=== PATIENT | male | born 1955 | race Caucasian/White ===

== ENCOUNTER 2017-09-24 10:06 | Emergency (ER) | payer MEDICARE ==
--- NOTE | 2017-09-24 11:48 | ED ---
General Adult HPI - General Chief complaint: Urogenital Stated complaint: Urinary problems Time Seen by Provider: 09/24/17 10:25 Source: patient, RN notes reviewed Mode of arrival: ambulatory Limitations: no limitations - History of Present Illness Initial comments: This is a 62-year-old male who presents emergency Department with a past medical history significant for benign prostatic hypertrophy. Patient states he recently had a catheter placed which is taken out yesterday. Patient states he was unable to urinate today so came back to the emergency department. Patient states he started on 2 medications so that he would not have urinary retention. Patient states once he just started taking yesterday. Patient states that a follow-up neurology appointment. Patient complains of suprapubic abdominal pain. Patient denies any fever or dysuria. - Related Data Home Medications Medication Instructions Recorded Confirmed Aspirin 81 mg PO DAILY 11/21/14 11/21/14 Atorvastatin [Lipitor] 20 mg PO DAILY 11/21/14 11/21/14 Clopidogrel [Plavix] 75 mg PO DAILY 11/21/14 11/21/14 Desoximetasone [Topicort] 15 gm TP 11/21/14 11/21/14 Lisinopril [Zestril] 2.5 mg PO DAILY 11/21/14 11/21/14 Metoprolol Tartrate [Lopressor] 50 mg PO BID 11/21/14 11/21/14 Sertraline [Zoloft] 50 mg PO DAILY 11/21/14 11/21/14 buPROPion HCL [Wellbutrin XL] 300 mg PO DAILY 11/21/14 11/21/14 Previous Rx's Medication Instructions Recorded Cephalexin [Keflex] 500 mg PO Q6HR #40 cap 11/21/14 Ciprofloxacin HCl [Cipro] 500 mg PO Q12HR #20 tablet 09/24/17 Allergies Allergy/AdvReac Type Severity Reaction Status Date / Time No Known Allergies Allergy Verified 09/24/17 10:30 Review of Systems ROS Statement: Those systems with pertinent positive or pertinent negative responses have been documented in the HPI. ROS Other: All systems not noted in ROS Statement are negative. Past Medical History Past Medical History: Coronary Artery Disease (CAD), Hyperlipidemia, Hypertension, Prostate Disorder History of Any Multi-Drug Resistant Organisms: None Reported Past Surgical History: Coronary Bypass/CABG Past Psychological History: No Psychological Hx Reported Smoking Status: Current some day smoker Past Alcohol Use History: None Reported Past Drug Use History: None Reported General Exam - General Exam Comments Initial Comments: GENERAL: Patient is well-developed and well-nourished. Patient is nontoxic and well- hydrated and is in moderate distress. ENT: Neck is soft and supple. No significant lymphadenopathy is noted. EYES: The sclera were anicteric and conjunctiva were pink and moist. Extraocular movements were intact and pupils were equal round and reactive to light. Eyelids were unremarkable. PULMONARY: Unlabored respirations. Good breath sounds bilaterally. No audible rales rhonchi or wheezing was noted. CARDIOVASCULAR: There is a regular rate and rhythm without any murmurs gallops or rubs. ABDOMEN: Patient suprapubic tenderness and distention SKIN: Skin is clear with no lesions or rashes and otherwise unremarkable. NEUROLOGIC: Patient is alert and oriented x3. Cranial nerves II through XII are grossly intact. Motor and sensory are also intact. Normal speech, volume and content. Symmetrical smile. MUSCULOSKELETAL: Normal extremities with adequate strength and full range of motion. N LYMPHATICS: No significant lymphadenopathy is noted PSYCHIATRIC: Normal psychiatric evaluation. Limitations: no limitations Course Vital Signs 09/24/17 10:27 Temperature 97 F L Pulse Rate 111 H Respiratory 18 Rate Blood Pressure 178/109 O2 Sat by Pulse 98 Oximetry Medical Decision Making - Lab Data Lab Results 09/24/17 Range/Units 11:30 Urine Color Yellow Urine Appearance Cloudy (Clear) Urine pH 7.5 (5.0-8.0) Ur Specific [place] 1.017 (1.001-1.035) Urine Protein Trace H (Negative) Urine Glucose (UA) Negative (Negative) Urine Ketones Negative (Negative) Urine Blood Large H (Negative) Urine Nitrite Positive (Negative) Urine Bilirubin Negative (Negative) Urine Urobilinogen <2.0 (<2.0) mg/dL Ur Leukocyte Esterase Moderate H (Negative) Urine RBC >182 H (0-5) /hpf Urine WBC 81 H (0-5) /hpf Urine Bacteria Occasional H (None) /hpf Urine Mucus Rare H (None) /hpf Disposition Clinical Impression: Urinary tract infection, Urinary retention Disposition: HOME SELF-CARE Condition: Good Instructions: Urinary Tract Infection in Men (ED), Urinary Retention in Men (ED ) Additional Instructions: Patient should follow-up with urology as soon as possible Prescriptions: Ciprofloxacin HCl [Cipro] 500 mg PO Q12HR #20 tablet Referrals: Josselin Alfaro DO [Primary Care Provider] - 1-2 days Time of Disposition: 12:12
[2017-09-24 11:58] LABS: Appearance,Urine Cloudy (Clear); Bacteria,Urine Occasional /hpf; Bilirubin,Urine Negative (Negative); Blood,Urine Large (Negative); Color,Urine Yellow; Glucose,Urine (UA) Negative (Negative); Ketones,Urine Negative (Negative); Leukocyte Esterase,Urine Moderate (Negative); Mucus,Urine Rare /hpf; Nitrite,Urine Positive (Negative); PH, Urine 7.5 (5.0-8.0); Protein,Urine Trace (Negative); RBC,Urine >182 /hpf (0-5); Specific Gravity,Urine 1.017 (1.001-1.035); Urobilinogen,Urine <2.0 mg/dL (<2.0); WBC,Urine 81 /hpf (0-5)
[2017-09-24] MEDS ORDERED: cefTRIAXone 1,000 MG VIAL (IM USE) IM STA (12:11)
[2017-09-24 12:28] VITALS: BP 143/82; PULSE 85; RESP 15; TEMP 97.1
== END 2017-09-24 12:29 | disposition home or self-care (01) ==
LOC: EC 10:06
DX: N40.1 Benign prostatic hyperplasia with lower urinary tract symptoms (principal); R33.8 Other retention of urine; I25.10 Atherosclerotic heart disease of native coronary artery without angina pectoris; E78.5 Hyperlipidemia, unspecified; I10 Essential (primary) hypertension; F17.200 Nicotine dependence, unspecified, uncomplicated; Z95.1 Presence of aortocoronary bypass graft; Z79.82 Long term (current) use of aspirin; Z79.02 Long term (current) use of antithrombotics/antiplatelets; Z79.899 Other long term (current) drug therapy; Z79.52 Long term (current) use of systemic steroids
CPT/HCPCS: 51702; 51798; 81001; 99283

== ENCOUNTER → 2019-08-10 | Outpatient (CLI) | payer MEDICARE ==
[2019-08-10 16:19] LABS: African American GFR (CKD) >90 (>60 ml/min/1.73 sqM); Blood Urea Nitrogen 9 mg/dL (9-20); Non-African American GFR(CKD) >90 (>60 ml/min/1.73 sqM)
--- NOTE | 2019-08-11 04:24 | CT ---
EXAMINATION TYPE: CT angio abdomen DATE OF EXAM: 08/10/2019 COMPARISON: None HISTORY: 64-year-old male I71.4, AAA CT DLP: 557 mGycm, Automated Exposure Control for Dose Reduction was Utilized. Technique: CT scan of the abdomen after administration of: 100 mL of Isovue 370. Coronal and sagittal reconstructions performed. 3-D reconstructions generated o n a dedicated independent workstation. FINDINGS: Heart upper limits of normal in size without pericardial effusion some emphysematous changes seen wit hin the lower lungs. No pleural effusion. Arterial phase imaging of the liver shows a few foci of hypervascularity in the right liver lobe silverio uring up to 1 cm, likely small areas of vascular shunting or flash filling hemangiomas. A 9 mm hypode nsity inferior right liver lobe likely represents a cyst. No biliary ductal dilatation. Gallbladder, left adrenal gland, spleen, and pancreas show no gross abnormality by early arterial pha se imaging. A few cortical hypodensities within the kidneys, one on the right measuring 1.0 cm and 2 on the left measuring 1.4 cm and 0.9 cm are indeterminate but probably represent cortical cysts. 1.4 cm left lowe r pole lesion can be reassessed in 3-6 months. No dilated small bowel, free fluid, or free air. No mesenteric or retroperitoneal lymphadenopathy. Normal appendix partially visualized. Mild to moderate stool. No pericolonic inflammatory change. The pelvis was not imaged. VASCULATURE: Distal descending thoracic aorta is ectatic at 2.8 cm. The aorta at the thoracoabdominal junction is ectatic at 2.9 cm. Upper abdominal aorta measures 2.3 cm. [place] renal arteries. Just below the right renal artery takeoff, there is a fusiform aneurysm extending down to the bifurca tion spanning up to 7.8 cm measuring up to 5.6 x 5.1 cm. And shows prominent crescentic mural-based p laque and thrombus narrowing the patent lumen down to 3.3 cm. The bifurcation is also aneurysmal at 3.6 cm. The proximal right common iliac artery is aneurysmal at 2.6 cm and tapers to a borderline ectatic 1.5 cm. The left common iliac artery is borderline ectatic at 1.5 cm. Bones: Hypertrophic facet arthropathy and degenerative disc disease throughout the visualized lumbar spine. IMPRESSION: 1. Infrarenal AAA extending down to the bifurcation measuring up to 5.6 x 5.1 cm. Appropriate vascula r surgery follow-up and management recommended. Mural-based plaque and thrombus narrows the patent yvette men to 3.3 cm. The bifurcation is aneurysmal at 3.6 cm. 2. Aneurysm extends into the proximal right common iliac artery at 2.6 cm. The remainder of the bilat eral common iliac arteries are borderline ectatic at 1.5 cm. 3. A 3-6 month follow-up CT recommended for indeterminate renal lesions, particularly the 1.4 cm lesi on at the lower pole of the left kidney. Cortical cysts are suspected.
== END | disposition home or self-care (01) ==
LOC: RADCTMAIN 15:19
PROVIDERS: ATTEND Surgery
DX: I71.4 Abdominal aortic aneurysm, without rupture (principal); I72.3 Aneurysm of iliac artery; I77.89 Other specified disorders of arteries and arterioles; I70.0 Atherosclerosis of aorta; I74.09 Other arterial embolism and thrombosis of abdominal aorta
CPT/HCPCS: 82565; 84520; 74175; 36415; Q9967

== ENCOUNTER → 2019-08-11 | Outpatient (CLI) | payer MEDICARE ==
[2019-08-11 14:13] LABS: African American GFR (CKD) >90 (>60 ml/min/1.73 sqM); Blood Urea Nitrogen 9 mg/dL (9-20); Non-African American GFR(CKD) >90 (>60 ml/min/1.73 sqM)
--- NOTE | 2019-08-11 14:46 | XR ---
EXAMINATION TYPE: XR chest 2V DATE OF EXAM: 08/11/2019 COMPARISON: NONE HISTORY: Preop TECHNIQUE: Frontal and lateral views of the chest are obtained. FINDINGS: Patient is post median sternotomy. There are prominent lung lines with flattening the hemid iaphragms suggesting underlying COPD. The aorta is dense. There is no focal air space opacity, pleura l effusion, or pneumothorax seen. The cardiac silhouette size is within normal limits. The osseous structures are intact, there is multilevel spondylosis. There is eventration of the hemidiaphragm on the right. IMPRESSION: No acute cardiopulmonary process.
== END | disposition home or self-care (01) ==
LOC: RADXRMAIN 12:19
PROVIDERS: ATTEND Surgery
DX: Z01.818 Encounter for other preprocedural examination (principal); Z01.812 Encounter for preprocedural laboratory examination; I71.4 Abdominal aortic aneurysm, without rupture
CPT/HCPCS: 36415; 71046; 82565; 84520; 86850; 86900; 86901

== ENCOUNTER 2019-08-19 09:00 | Inpatient (IN) | payer MEDICARE ==
[2019-08-20 13:23] VITALS: BMI 26.4
[2019-08-24] MEDS ORDERED: SODIUM CHLORIDE 0.9% 1,000 ML in EMPTY BAG 1 BAG IV ONE (05:53)
[2019-08-24] MEDS ORDERED: LACTATED RINGERS 1,000 ML IV SCH (05:53)
[2019-08-24] MEDS ORDERED: ONDANSETRON 4 MG/2 ML VIAL IVP ONE (05:53)
[2019-08-24] MEDS: ASPIRIN 325 MG TAB ONE ×2 (11:51→18:23)
[2019-08-24 12:17] LABS: Basophils # (A) 0.1 k/uL (0-0.2); Basophils % (A) 1 %; Eosinophils # (A) 0.3 k/uL (0-0.7); Eosinophils % (A) 3 %; HCT 47.2 % (39.0-53.0); HGB 14.7 gm/dL (13.0-17.5); Lymphocytes # (A) 1.8 k/uL (1.0-4.8); Lymphocytes % (A) 21 %; MCH 29.4 pg (25.0-35.0); MCHC 31.1 g/dL (31.0-37.0); MCV 94.5 fL (80.0-100.0); Mean Platelet Volume 7.5; Monocytes # (A) 0.4 k/uL (0-1.0); Monocytes % (A) 5 %; Neutrophils # (A) 5.9 k/uL (1.3-7.7); Neutrophils % (A) 68 %; Platelet Count 243 k/uL (150-450); RBC 4.99 m/uL (4.30-5.90); WBC 8.7 k/uL (3.8-10.6)
[2019-08-24 12:29] LABS: African American GFR (CKD) >90 (>60 ml/min/1.73 sqM); Anion Gap 7 mmol/L; Blood Urea Nitrogen 14 mg/dL (9-20); Calcium 10.1 mg/dL (8.4-10.2); Carbon Dioxide 26 mmol/L (22-30); Chloride 104 mmol/L (98-107); Glucose 121 mg/dL (74-99); Non-African American GFR(CKD) 89 (>60 ml/min/1.73 sqM); Potassium 4.4 mmol/L (3.5-5.1); Sodium 137 mmol/L (137-145)
[2019-08-24] MEDS ORDERED: PROTAMINE SULFATE 10 MG/ML 5 ML VIAL IV ONE (14:45)
[2019-08-24] MEDS ORDERED: ePHEDrine SULFATE/0.9% NACL/PF 50 MG/5 ML SYRINGE IV ONE (14:45)
[2019-08-24] MEDS ORDERED: ROCURONIUM BROMIDE 10 MG/ML 5 ML VIAL IV ONE (14:45)
[2019-08-24] MEDS ORDERED: HEPARIN SODIUM,PORCINE 10,000 UNIT/ML 1 ML VIAL ONE (14:45)
[2019-08-24] MEDS ORDERED: PHENYLEPHRINE-0.9% NACL SYG 1 MG/10 ML SYRINGE ONE (14:45)
[2019-08-24] MEDS ORDERED: PROPOFOL 10 MG/ML 20 ML VIAL IV ONE (14:45)
[2019-08-24] MEDS ORDERED: LIDOCAINE 1% INJ 10MG/ML (20 ML MDV) ONE (14:45)
[2019-08-24] MEDS ORDERED: SUCCINYLCHOLINE CHLORIDE 100 MG/5 ML SYR IV ONE (14:45)
[2019-08-24] MEDS ORDERED: MIDAZOLAM 2 MG/2 ML VIAL ONE (14:45)
[2019-08-24] MEDS ORDERED: GLYCOPYRROLATE 0.2 MG/ML 2 ML VIAL ONE (14:45)
[2019-08-24] MEDS ORDERED: NEOSTIGMINE 1 MG/ML 10 ML VIAL ONE (14:45)
[2019-08-24] MEDS ORDERED: fentaNYL (PF) 50 MCG/ML 2 ML AMP ONE (14:45)
[2019-08-24] MEDS ORDERED: IOPAMIDOL-300 100ML BTL INJ ONE (16:30)
[2019-08-24] MEDS ORDERED: IOPAMIDOL-370 100ML BTL INJ ONE (16:30)
[2019-08-24] MEDS ORDERED: HYDROcodone/APAP 5-325MG 1 EACH TAB PO PRN (16:54)
[2019-08-24] MEDS ORDERED: DOCUSATE 100 MG CAP PO PRN (16:54)
[2019-08-24 18:04] LABS: Glucose,Whole Blood 94 mg/dL (75-99)
[2019-08-24 20:09] LABS: Basophils % (A) 1 %; Eosinophils # (A) 0.3 k/uL (0-0.7); Eosinophils % (A) 4 %; HCT 43.2 % (39.0-53.0); HGB 13.3 gm/dL (13.0-17.5); Lymphocytes # (A) 1.8 k/uL (1.0-4.8); Lymphocytes % (A) 24 %; MCH 29.6 pg (25.0-35.0); MCHC 30.8 g/dL (31.0-37.0); MCV 95.9 fL (80.0-100.0); Mean Platelet Volume 7.4; Monocytes # (A) 0.4 k/uL (0-1.0); Monocytes % (A) 6 %; Neutrophils # (A) 4.8 k/uL (1.3-7.7); Neutrophils % (A) 64 %; Platelet Count 179 k/uL (150-450); RBC 4.51 m/uL (4.30-5.90); WBC 7.5 k/uL (3.8-10.6)
[2019-08-24 20:18] LABS: African American GFR (CKD) >90 (>60 ml/min/1.73 sqM); Anion Gap 5 mmol/L; Blood Urea Nitrogen 12 mg/dL (9-20); Calcium 9.1 mg/dL (8.4-10.2); Carbon Dioxide 27 mmol/L (22-30); Chloride 107 mmol/L (98-107); Glucose 80 mg/dL (74-99); Non-African American GFR(CKD) >90 (>60 ml/min/1.73 sqM); Sodium 139 mmol/L (137-145)
[2019-08-24] MEDS: SODIUM CHLORIDE 0.9% 1,000 ML IV SCH (20:31)
[2019-08-24] MEDS ORDERED: PRAVASTATIN SODIUM 40 MG TAB PO SCH (21:00)
--- NOTE | 2019-08-24 22:17 | IR ---
EXAMINATION TYPE: IR stent intravas non coronary DATE OF EXAM: 08/24/2019 COMPARISON: NONE HISTORY: Fluoroscopy time. Fluoroscopy was provided to the referring clinician. 16 minutes of fluoroscopy provided.
[2019-08-24] MEDS ORDERED: ACETAMINOPHEN TAB 325 MG TAB PO PRN (23:09)
[2019-08-25] MEDS ORDERED: NALOXONE 0.4 MG/ML 1 ML VIAL IV PRN (02:46)
[2019-08-25 04:37] LABS: Basophils % (A) 0 %; Eosinophils # (A) 0.3 k/uL (0-0.7); Eosinophils % (A) 3 %; HGB 12.6 gm/dL (13.0-17.5); Lymphocytes # (A) 1.5 k/uL (1.0-4.8); Lymphocytes % (A) 15 %; MCHC 31.4 g/dL (31.0-37.0); MCV 95.5 fL (80.0-100.0); Mean Platelet Volume 7.6; Monocytes # (A) 0.6 k/uL (0-1.0); Monocytes % (A) 6 %; Neutrophils # (A) 7.4 k/uL (1.3-7.7); Neutrophils % (A) 75 %; Platelet Count 161 k/uL (150-450); RBC 4.19 m/uL (4.30-5.90); WBC 9.9 k/uL (3.8-10.6)
[2019-08-25 04:46] LABS: ALT 13 U/L (4-49); AST 26 U/L (17-59); African American GFR (CKD) >90 (>60 ml/min/1.73 sqM); Albumin 3.2 g/dL (3.5-5.0); Alkaline Phosphatase 57 U/L (38-126); Anion Gap 5 mmol/L; Blood Urea Nitrogen 11 mg/dL (9-20); Calcium 8.7 mg/dL (8.4-10.2); Carbon Dioxide 24 mmol/L (22-30); Chloride 106 mmol/L (98-107); Glucose 88 mg/dL (74-99); Non-African American GFR(CKD) >90 (>60 ml/min/1.73 sqM); Sodium 135 mmol/L (137-145); Total Bilirubin 0.8 mg/dL (0.2-1.3); Total Protein 5.5 g/dL (6.3-8.2)
[2019-08-25] MEDS: SODIUM CHLORIDE 0.9% 1,000 ML IV SCH (06:18)
[2019-08-25] MEDS ORDERED: PANTOPRAZOLE 40 MG TABLET PO SCH (07:30)
[2019-08-25] MEDS ORDERED: HEPARIN SODIUM,PORCINE 5,000 UNIT/ML 1 ML VIAL SQ SCH (08:00)
--- NOTE | 2019-08-25 08:52 | P.DS ---
Providers Date of admission: 08/24/19 11:18 Attending physician: Rachel Granados DO Consults: 08/24/19 05:53 Consult to Anesthesia Routine Consulting Provider: Anesthesia,Services Consult Reason/Comments: General anesthesia for Aortic Stent procedure 08/24/19 16:54 Consult Physician Routine Consulting Provider: John Chester Consult Reason/Comments: ICU, postop AAA repair Do you want consulting provider notified?: Yes 08/24/19 16:58 Consult Physician Routine Consulting Provider: Td Ghosh Consult Reason/Comments: post op AAA Do you want consulting provider notified?: Yes Primary care physician: Td Ghosh [facility] Course: The patient is a 64-year-old male who was found on outpatient workup and evaluation to have a 5.7cm infrarenal abdominal aortic aneurysm. He underwent a left repair on 08/24/2019 via percutaneous endovascular approach. He tolerated this procedure well. He is monitored in the ICU overnight. He was seen this morning and is in no acute distress. His heart is regular. His lungs are clear. His abdomen is soft, nontender and nondistended. His bilateral groins are and incision sites are without any evidence of hematoma or pseudoaneurysm. The Granados catheter will be removed. Arterial line will be removed. He will eat his breakfast and ambulate. If at lunchtime he is tolerating all the things while he may be discharged home with follow-up in 10-14 days Plan - Discharge Summary Discharge Rx Participant: Yes New Discharge Prescriptions: No Action buPROPion HCL [Wellbutrin XL] 300 mg PO DAILY Sertraline [Zoloft] 50 mg PO Q48H Clopidogrel [Plavix] 75 mg PO DAILY Atorvastatin [Lipitor] 20 mg PO HS Aspirin 81 mg PO DAILY Tamsulosin [Flomax] 0.4 mg PO HS Multivitamins, Thera [Multivitamin (formulary)] 1 tab PO DAILY Finasteride [Proscar] 5 mg PO DAILY Cannabidiol (Cbd) Extract [Epidiolex] 1 dose PO DIRECTED PRN PRN Reason: ASSIST WITH STOP SMOKING Discharge Medication List Aspirin 81 mg PO DAILY 11/21/14 [History] Atorvastatin [Lipitor] 20 mg PO HS 11/21/14 [History] Clopidogrel [Plavix] 75 mg PO DAILY 11/21/14 [History] Sertraline [Zoloft] 50 mg PO Q48H 11/21/14 [History] buPROPion HCL [Wellbutrin XL] 300 mg PO DAILY 11/21/14 [History] Cannabidiol (Cbd) Extract [Epidiolex] 1 dose PO DIRECTED PRN 08/20/19 [History] Finasteride [Proscar] 5 mg PO DAILY 08/20/19 [History] Multivitamins, Thera [Multivitamin (formulary)] 1 tab PO DAILY 08/20/19 [History] Tamsulosin [Flomax] 0.4 mg PO HS 08/20/19 [History]
[2019-08-25] MEDS ORDERED: ASPIRIN 81 MG PO SCH (09:00)
[2019-08-25 09:01] VITALS: TEMP 98
--- NOTE | 2019-08-25 11:03 | P.CNPUL ---
History of Present Illness Consult date: 08/25/19 Reason for consult: other Chief complaint: Abdominal aortic aneurysm History of present illness: 64-year-old white male patient with past medical history of hypertension, hyperlipidemia, CAD with previous bypass grafting BPH, depression, current smoker, COPD, who was found to have a 5.7 cm infrarenal abdominal aortic a neurysm on an outpatient workup and evaluation. Patient had a surgical repair on 08/24/2019 via percutaneous endovascular approach. Today is postoperative day 1, patient is resting comfortably in bed, in the intensive care unit, he is in no acute distress, vital signs have been stable, room air pulse ox is 94%, blood pressure stable at 139/54, afebrile, he is in sinus mechanism with a right bundle branch block pattern. normal saline infusing at a rate of 100 ML per hour, no other drips. His bilateral groin incisions are clean dry and intact. His pedal pulses are 1+ and palpable. Extremities are warm, no sensory alteration involving his bilateral lower extremities, no paresthesias. No c omplaints of pain Review of Systems All systems: negative Constitutional: Denies chills, Denies fever Eyes: denies blurred vision, denies pain Ears, nose, mouth and throat: Denies headache, Denies sore throat Cardiovascular: Denies chest pain, Denies shortness of breath Respiratory: Denies cough Gastrointestinal: Denies abdominal pain, Denies diarrhea, Denies nausea, Denies vomiting Musculoskeletal: Denies myalgias Integumentary: Denies pruritus, Denies rash Neurological: Denies numbness, Denies weakness Psychiatric: Denies anxiety, Denies depression Endocrine: Denies fatigue, Denies weight change Past Medical History Past Medical History: Coronary Artery Disease (CAD), COPD, Hyperlipidemia, Hypertension, Myocardial Infarction ([place]), Prostate Disorder Additional Past Medical History / Comment(s): STATES "MILD COPD" (NO MEDS), ENLARGED PROSTATE., AAA Last Myocardial Infarction Date:: 2011 History of Any Multi-Drug Resistant Organisms: None Reported Past Surgical History: Coronary Bypass/CABG, Hernia Repair Additional Past Surgical History / Comment(s): TRIPLE CABG (2012), HERNIA (CHILD) Past Anesthesia/Blood Transfusion Reactions: No Reported Reaction Smoking Status: Current every day smoker - Past Family History Mother Family Medical History: No Reported History Medications and Allergies Home Medications Medication Instructions Recorded Confirmed Type Aspirin 81 mg PO DAILY 11/21/14 08/20/19 History Atorvastatin [Lipitor] 20 mg PO HS 11/21/14 08/24/19 History Clopidogrel [Plavix] 75 mg PO DAILY 11/21/14 08/24/19 History Sertraline [Zoloft] 50 mg PO Q48H 11/21/14 08/24/19 History buPROPion HCL [Wellbutrin XL] 300 mg PO DAILY 11/21/14 08/24/19 History Cannabidiol (Cbd) Extract 1 dose PO DIRECTED PRN 08/20/19 08/24/19 History [Epidiolex] Finasteride [Proscar] 5 mg PO DAILY 08/20/19 08/24/19 History Multivitamins, Thera [Multivitamin 1 tab PO DAILY 08/20/19 08/20/19 History (formulary)] Tamsulosin [Flomax] 0.4 mg PO HS 08/20/19 08/24/19 History Allergies Allergy/AdvReac Type Severity Reaction Status Date / Time No Known Allergies Allergy Verified 08/20/19 11:56 Physical Exam Vitals: Vital Signs Temp Pulse Pulse Pulse Resp BP BP 08/25/19 10:00 52 L 13 142/74 08/25/19 09:00 52 L 19 139/71 08/25/19 08:00 98.0 F 54 L 13 137/75 08/25/19 07:00 51 L 20 135/71 08/25/19 06:00 51 L 19 134/71 08/25/19 05:00 50 L 19 08/25/19 04:00 59 L 24 137/71 08/25/19 03:00 51 L 25 H 08/25/19 02:00 48 L 16 136/72 08/25/19 01:00 50 L 18 143/74 08/25/19 00:00 98.5 F 50 L 19 150/76 08/24/19 23:00 52 L 13 152/79 08/24/19 22:00 53 L 10 L 155/80 08/24/19 21:57 51 L 11 L 155/80 08/24/19 21:30 54 L 14 155/80 08/24/19 21:00 51 L 15 161/80 08/24/19 20:30 98.4 F 52 L 17 157/81 08/24/19 20:00 52 L 26 H 08/24/19 19:30 51 L 47 H 143/78 08/24/19 19:15 48 L 12 08/24/19 19:00 50 L 12 08/24/19 18:45 48 L 14 08/24/19 18:30 51 L 24 08/24/19 18:20 53 L 25 H 08/24/19 18:10 97.6 F 51 L 20 134/75 08/24/19 17:31 55 L 18 08/24/19 17:18 58 L 18 136/73 08/24/19 17:00 62 18 131/78 08/24/19 16:50 97.3 F L 61 16 132/85 08/24/19 12:15 97.7 F 64 16 157/76 Pulse Ox 08/25/19 10:00 93 L 08/25/19 09:00 94 L 08/25/19 08:00 94 L 08/25/19 07:00 94 L 08/25/19 06:00 93 L 08/25/19 05:00 94 L 08/25/19 04:00 94 L 08/25/19 03:00 94 L 08/25/19 02:00 94 L 08/25/19 01:00 94 L 08/25/19 00:00 95 08/24/19 23:00 94 L 08/24/19 22:00 95 08/24/19 21:57 95 08/24/19 21:30 96 08/24/19 21:00 97 08/24/19 20:30 97 08/24/19 20:00 96 08/24/19 19:30 97 08/24/19 19:15 95 08/24/19 19:00 98 08/24/19 18:45 97 08/24/19 18:30 96 08/24/19 18:20 95 08/24/19 18:10 94 L 08/24/19 17:31 93 L 08/24/19 17:18 97 08/24/19 17:00 96 08/24/19 16:50 100 08/24/19 12:15 99 Intake and Output 08/24/19 08/25/19 08/25/19 22:59 06:59 14:59 Intake Total 600 800 300 Output Total 850 615 710 Balance -250 185 -410 Intake: IV 600 800 300 Sodium Chloride 0.9% 1, 500 800 300 000 ml @ 100 mls/hr IV . Q10H [facility] Rx#:[id number] Output: Urine 850 615 710 Other: Voiding Method Indwelling Catheter Indwelling Catheter Indwelling Catheter Weight 81.1 kg ABP, PAP, CO, CI - Last 8 Hours Arterial Blood Pressure 139/54 Arterial Blood Pressure 138/54 Arterial Blood Pressure 142/59 Arterial Blood Pressure 135/54 Arterial Blood Pressure 131/47 Arterial Blood Pressure 139/50 Arterial Blood Pressure 141/51 GENERAL EXAM: Alert, very pleasant, 64-year-old on room air, with pulse ox of 94% comfortable in no apparent distress. HEAD: Normocephalic/atraumatic. EYES: Normal reaction of pupils, equal size. Conjunctiva pink, sclera white. NOSE: Clear with pink turbinates. THROAT: No erythema or exudates. NECK: No masses, no JVD, no thyroid enlargement, no adenopathy. CHEST: No chest wall deformity. Symmetrical expansion. LUNGS: Equal air entry with no crackles, wheeze, rhonchi or dullness. CVS: Regular rate and rhythm, normal S1 and S2, no gallops, no murmurs, no rubs ABDOMEN: Soft, nontender. No hepatosplenomegaly, normal bowel sounds, no guarding or rigidity. EXTREMITIES: No clubbing, no edema, no cyanosis, 2+ pulses and upper and lower extremities. MUSCULOSKELETAL: Muscle strength and tone normal. SPINE: No scoliosis or deformity SKIN: No rashes, lateral groin incisions clean dry and intact, covered with dressings CENTRAL NERVOUS SYSTEM: Alert and oriented -3. No focal deficits, tone is normal in all 4 extremities. PSYCHIATRIC: Alert and oriented -3. Appropriate affect. Intact judgment and insight. Results - Laboratory Findings CBC and BMP: 08/25/19 04:08 08/25/19 04:08 Abnormal lab findings: Abnormal Labs 08/24/19 08/24/19 08/25/19 12:03 19:47 04:08 RBC Hgb MCHC 30.8 L Sodium 135 L Glucose 121 H Total Protein 5.5 L Albumin 3.2 L 08/25/19 04:08 RBC 4.19 L Hgb 12.6 L MCHC Sodium Glucose Total Protein Albumin - Diagnostic Findings Chest x-ray: report reviewed, image reviewed Assessment and Plan Plan: Assessment: #1. 5.7 cm infrarenal abdominal aortic aneurysm status post percutaneous surgical repair and stent placement, postoperative day 1 #2. History of CAD with previous bypass surgery #3. Hypertension #4. Hyperlipidemia #5. Mild COPD, currently inactive #6. Current smoker #7. Depression Plan: Patient is doing well, hemodynamically stable, no issues overnight, his pain is controlled, incisions are clean dry and intact, pedal pulses are intact, anticipate discharge home this afternoon if continues to do well. GI and DVT prophylaxis per vascular surgery. I performed a history & physical examination of the patient and discussed their management with my nurse practitioner, Hortencia Martin. I reviewed the nurse practitioner's note and agree with the documented findings and plan of care. Lung sounds are positive for clear breath sounds. The findings and the impression was discussed with the patient. I attest to the documentation by the nurse practitioner. Time with Patient: Greater than 30
[2019-08-25 12:18] VITALS: BP 138/39; PULSE 58; RESP 20
--- NOTE | 2019-08-25 13:49 | P.OP ---
Date of Procedure: 08/24/19 Description of Procedure: Date of Procedure: 08/24/2019 Preoperative Diagnosis: 5.7 cm infrarenal abdominal aortic aneurysm Postoperative Diagnosis:Same Procedure(s) Performed: 1. Ultrasound-guided bilateral common femoral artery access 2. Percutaneous endovascular infrarenal abdominal aortic aneurysm repair with [26 mm ovation stent graft, 14 x 140 contralateral and 16 x 140 ipsilateral limb] 3. Placement of closure devices bilateral groins Anesthesia: GET Surgeon: Rachel Granados D.O. Estimated Blood Loss (ml): [30 mL] Condition: Stable Disposition: PACU Findings and indications: The patient is a 64-year-old male who underwent imaging and was found to have an incidental abdominal aortic aneurysm. Further workup and evaluation revealed a 5.7 cm infrarenal abdominal aortic aneurysm which is amenable to endovascular repair. Risks and benefits of going forward were discussed with patient and his family. They seemingly understood and were willing to proceed Description of Procedure: After written and informed consent was obtained from the patient and all risks, benefits and complications were discussed the patient was brought to the label stitcher and laid in a supine position. The area of the abdomen and groins were prepped and draped in the usual sterile fashion after appropriate anesthesia was administered. A preprocedure timeout was performed, all parties were in agreement. Utilizing ultrasound bilateral common femoral artery access was obtained and 2 Perclose closure devices were placed in each femoral artery followed by 8 [place] sheaths. Patient was then heparinized and followed with serial ACTs. Glidewire was placed into the aorta followed by pigtail catheter and aortogram was obtain demonstrating the infrarenal AAA without any signs of rupture. Lunderquist wire was then placed through the sheath into the descending thoracic aorta. A [26 mm] Ovation graft aortic body was then placed just beneath the renal arteries. Main body was deployed in normal fashion and polymer was injected under fluoroscopy. Contralateral limb access was obtained via direct cannulation. Proper placement was confirmed with a pigtail catheter. A retrograde angiogram was obtained for measurement of the contralateral limb. A [[id number]] iliac limb was then deployed for the contralateral limb. Attention was then placed back to the main body and deployment was completed. The nose cone was retracted. Balloon angioplasty was then performed at the polymer to mold to the aorta. The balloon was removed and pigtail catheter was placed up the ipsilateral limb. A retrograde angiogram was obtained for measurements. [[id number]] ipsilateral limb was then deployed in usual fashion. Two [[id number]] balloons were then placed up both limbs and kissing angioplasty was performed throughout the limbs. Final angiogram was then obtained via a pigtail catheter. The aneurysm was excluded without any evidence of endoleak. Multiple views were obtained verifying this and the procedure was concluded. All guidewires, catheters and sheaths were removed and perclose devices were secured for hemostasis. Dressings were then placed. Patient tolerated the procedure well and had [palpable distal pulses] at the conclusion of the procedure. The patient was then sent to the PACU for recovery.
== END 2019-08-25 12:51 | disposition home or self-care (01) | DRG 269 ==
LOC: 2ORMAIN 08-24 11:18 → 2SICU 08-24 16:25
PROVIDERS: ADMIT Surgery; ATTEND Surgery
PROC: 04V03DZ Restriction of Abdominal Aorta with Intraluminal Device, Percutaneous Approach (ICD-10-PCS; principal; 2019-08-24 13:15)
DX: I71.4 Abdominal aortic aneurysm, without rupture (principal); E78.5 Hyperlipidemia, unspecified; F17.210 Nicotine dependence, cigarettes, uncomplicated; F32.9 Major depressive disorder, single episode, unspecified; I10 Essential (primary) hypertension; I25.10 Atherosclerotic heart disease of native coronary artery without angina pectoris; I25.2 Old myocardial infarction; J44.9 Chronic obstructive pulmonary disease, unspecified; N40.0 Benign prostatic hyperplasia without lower urinary tract symptoms; K21.9 Gastro-esophageal reflux disease without esophagitis; I45.10 Unspecified right bundle-branch block; Z79.02 Long term (current) use of antithrombotics/antiplatelets; Z79.82 Long term (current) use of aspirin; Z79.899 Other long term (current) drug therapy; Z95.1 Presence of aortocoronary bypass graft; Z86.010 Personal history of colon polyps; Z84.1 Family history of disorders of kidney and ureter
CPT/HCPCS: 34705; 80048; 80053; 85025; 85347; 86850; 86900; 86901

== ENCOUNTER 2019-08-25 20:49 | Emergency (ER) | payer MEDICARE ==
[2019-08-25 21:02] VITALS: BP 147/82; PULSE 79; RESP 20; TEMP 97.6
--- NOTE | 2019-08-25 21:54 | ED ---
General Adult HPI - General Chief complaint: Recheck/Abnormal Lab/Rx Stated complaint: unable to urinate/SP AAA Time Seen by Provider: 08/25/19 21:05 Source: patient Mode of arrival: ambulatory Limitations: no limitations - History of Present Illness Initial comments: This patient is a 64-year-old man who presents with complaint of suprapubic pain and the inability to pass any urine. The patient did have recent surgical procedure. He had been admitted in the hospital here and had a endovascular stent placed for AAA. The patient had a Grandaos catheter that had been placed for the procedure and then that was taken out around 9 this morning. Patient states that he had gone home and then has not been able to pass any urine. He has had increasingly severe suprapubic pressure type pain and urge to urinate. -: hour(s) Location: abdomen Radiation: non-radiation Quality: other (Pressure) Consistency: constant Improves with: none Worsens with: none Associated Symptoms: other (Urinary retention) Treatments Prior to Arrival: none - Related Data Home Medications Medication Instructions Recorded Confirmed Aspirin 81 mg PO DAILY 11/21/14 08/20/19 Atorvastatin [Lipitor] 20 mg PO HS 11/21/14 08/24/19 Clopidogrel [Plavix] 75 mg PO DAILY 11/21/14 08/24/19 Sertraline [Zoloft] 50 mg PO Q48H 11/21/14 08/24/19 buPROPion HCL [Wellbutrin XL] 300 mg PO DAILY 11/21/14 08/24/19 Cannabidiol (Cbd) Extract 1 dose PO DIRECTED PRN 08/20/19 08/24/19 [Epidiolex] Finasteride [Proscar] 5 mg PO DAILY 08/20/19 08/24/19 Multivitamins, Thera [Multivitamin 1 tab PO DAILY 08/20/19 08/20/19 (formulary)] Tamsulosin [Flomax] 0.4 mg PO HS 08/20/19 08/24/19 Allergies Allergy/AdvReac Type Severity Reaction Status Date / Time No Known Allergies Allergy Verified 08/25/19 21:02 Review of Systems ROS Statement: Those systems with pertinent positive or pertinent negative responses have been documented in the HPI. ROS Other: All systems not noted in ROS Statement are negative. Constitutional: Denies: fever, chills Respiratory: Denies: cough, dyspnea Cardiovascular: Denies: chest pain, palpitations, edema, syncope Gastrointestinal: Reports: as per HPI, abdominal pain. Denies: nausea, vomiting, diarrhea, melena, hematochezia Genitourinary: Denies: dysuria, frequency, hematuria, discharge, testicular pain Musculoskeletal: Denies: back pain Skin: Denies: rash Neurological: Denies: headache, weakness Past Medical History Past Medical History: Coronary Artery Disease (CAD), COPD, Hyperlipidemia, Hypertension, Myocardial Infarction ([place]), Prostate Disorder Additional Past Medical History / Comment(s): STATES "MILD COPD" (NO MEDS), ENLARGED PROSTATE., AAA Last Myocardial Infarction Date:: 2011 History of Any Multi-Drug Resistant Organisms: None Reported Past Surgical History: Coronary Bypass/CABG, Hernia Repair Additional Past Surgical History / Comment(s): TRIPLE CABG (2012), HERNIA (CHILD) Past Anesthesia/Blood Transfusion Reactions: No Reported Reaction Past Psychological History: No Psychological Hx Reported Smoking Status: Current every day smoker Past Alcohol Use History: None Reported Past Drug Use History: None Reported - Past Family History Mother Family Medical History: No Reported History General Exam Limitations: no limitations General appearance: alert, in no apparent distress Head exam: Present: atraumatic, normocephalic Eye exam: Present: normal appearance. Absent: scleral icterus, conjunctival injection Respiratory exam: Present: normal lung sounds bilaterally. Absent: respiratory distress, wheezes, rales, rhonchi, stridor Cardiovascular Exam: Present: regular rate, normal rhythm, normal heart sounds. Absent: systolic murmur, diastolic murmur, rubs, gallop GI/Abdominal exam: Present: soft, guarding, mass (Fullness in the suprapubic area and guarding there consistent with distended bladder). Absent: distended, tenderness, rebound, rigid, pulsatile mass, hernia Extremities exam: Present: normal inspection, normal capillary refill. Absent: pedal edema, calf tenderness Back exam: Absent: CVA tenderness (R), CVA tenderness (L) Neurological exam: Present: alert Skin exam: Present: warm, dry, intact, normal color. Absent: rash Course Vital Signs 08/25/19 21:00 Temperature 97.6 F Pulse Rate 79 Respiratory 20 Rate Blood Pressure 147/82 O2 Sat by Pulse 98 Oximetry Disposition Clinical Impression: Urinary retention Disposition: HOME SELF-CARE Condition: Good Instructions (If sedation given, give patient instructions): Urinary Retention in Men (ED) Is patient prescribed a controlled substance at d/c from ED?: No Referrals: Td Ghosh MD [Primary Care Provider] - 1-2 days Viraj Messer MD [STAFF PHYSICIAN] - 1-2 days
== END 2019-08-25 23:16 | disposition home or self-care (01) ==
LOC: EC 20:49
DX: R33.8 Other retention of urine (principal); N40.1 Benign prostatic hyperplasia with lower urinary tract symptoms; R19.09 Other intra-abdominal and pelvic swelling, mass and lump; R10.30 Lower abdominal pain, unspecified; I25.10 Atherosclerotic heart disease of native coronary artery without angina pectoris; E78.5 Hyperlipidemia, unspecified; I10 Essential (primary) hypertension; I25.2 Old myocardial infarction; F17.200 Nicotine dependence, unspecified, uncomplicated; Z79.02 Long term (current) use of antithrombotics/antiplatelets; Z79.82 Long term (current) use of aspirin; Z79.899 Other long term (current) drug therapy; Z86.79 Personal history of other diseases of the circulatory system; Z95.1 Presence of aortocoronary bypass graft; Z95.818 Presence of other cardiac implants and grafts
CPT/HCPCS: 51702; 99283

== ENCOUNTER → 2019-09-29 | Outpatient (CLI) | payer MEDICARE ==
[2019-09-29 16:57] LABS: African American GFR (CKD) >90 (>60 ml/min/1.73 sqM); Blood Urea Nitrogen 12 mg/dL (9-20); Non-African American GFR(CKD) >90 (>60 ml/min/1.73 sqM)
--- NOTE | 2019-09-30 07:26 | CT ---
EXAMINATION TYPE: CT angio abdomen pelvis DATE OF EXAM: 09/29/2019 COMPARISON: CTA abdomen August 10, 2019 HISTORY: AAA. CT DLP: 945.7 mGycm, Automated Exposure Control for Dose Reduction was Utilized. CONTRAST: CTA scan of the abdomen and pelvis is performed without oral and without and with IV Contrast, patien t injected with 100 mL of Isovue 370. Stent graft protocol with 3-D reconstructed images created on a independent workstation and reviewed during interpretation of study. FINDINGS: VASCULAR: There is new aortobiiliac stent graft beginning just below the diaphragmatic hiatus above o rigin of the celiac artery terminating at common iliac artery bifurcation. This is placed through the nondalton infrarenal aneurysm measuring approximately 10 cm in length coronal image 16 not significant change in prior with measurements of 5.3 x 5.1 cm axial image 41 not significantly changed from prior . There is aneurysm extension into the right common iliac artery measuring up to 2.5 cm axial image 5 1 not significantly changed from prior. Postcontrast images show filling of the celiac artery, SMA, a nd bilateral single renal arteries with nonfilling of the MAGGIE. There is filling of the stent graft wh ich is patent without evidence of abnormal opacification outside stent graft in the nondalton aneurysm. LUNG BASES: No significant abnormality is appreciated. LIVER/GB: No significant abnormality is appreciated. PANCREAS: No significant abnormality is seen. SPLEEN: No significant abnormality is seen. ADRENALS: No significant abnormality is seen. KIDNEYS: There are 2 calculi lower pole left kidney for reference 1 to 2 mm calculus coronal image 21 series 14. There is simple appearing partial exophytic 1.4 cm thin-walled cyst posterior medially mi d to lower pole of the left kidney series 9 image 22. Occasional subcentimeter low dense lesions scat tered throughout right kidney presumed benign for reference exophytic 8 mm lesion laterally series 9 image 20 midpole level. BOWEL: Normal-appearing appendix incidentally seen from cecum in the right upper pelvis. PROSTATE/SEMINAL VESICLES: Markedly heterogeneous enlarged prostate gland consistent with BPH. LYMPH NODES: No greater than 1cm abdominal or pelvic lymph nodes are appreciated. OSSEOUS STRUCTURES: Moderate to severe disc space narrowing lumbosacral junction. Mild to moderate mu ltilevel spurring and disc space narrowing in the thoracolumbar spine. Facet arthropathy into lower l umbar levels. Moderate narrowing and spurring in both hip joints. OTHER: No significant additional abnormality is seen. IMPRESSION: 1. New Patent aortobiiliac stent graft without CTA evidence for endoleak. Stable nondalton 5.3 cm aneury sm of the distal abdominal aorta with 2.5 cm aneurysm extension into right common iliac artery also s table.
== END | disposition home or self-care (01) ==
LOC: RADCTMAIN 16:13
PROVIDERS: ATTEND Surgery
DX: I71.4 Abdominal aortic aneurysm, without rupture (principal)
CPT/HCPCS: 82565; 84520; 36415; 74174; Q9967

== ENCOUNTER → 2020-01-28 | Outpatient (CLI) | payer MEDICARE ==
[2020-01-28 13:32] LABS: Basophils # (A) 0.1 k/uL (0-0.2); Basophils % (A) 1 %; Eosinophils # (A) 0.2 k/uL (0-0.7); Eosinophils % (A) 3 %; HCT 44.9 % (39.0-53.0); HGB 14.1 gm/dL (13.0-17.5); Hypochromasia Slight; Lymphocytes # (A) 1.8 k/uL (1.0-4.8); Lymphocytes % (A) 22 %; MCHC 31.5 g/dL (31.0-37.0); MCV 95.2 fL (80.0-100.0); Mean Platelet Volume 7.4; Monocytes # (A) 0.5 k/uL (0-1.0); Monocytes % (A) 6 %; Neutrophils # (A) 5.5 k/uL (1.3-7.7); Neutrophils % (A) 67 %; Platelet Count 254 k/uL (150-450); RBC 4.71 m/uL (4.30-5.90); RDW 13.1 % (11.5-15.5); WBC 8.1 k/uL (3.8-10.6)
[2020-01-28 21:02] LABS: African American GFR (CKD) 107.9 (60.0-200.0); Albumin 4.3 g/dL (3.80-4.90); Albumin/Globulin Ratio 2.26 (1.60-3.17); Anion Gap 4.7 mmol/L (4.00-12.00); BUN/Creat Ratio 11.25 Ratio (12.00-20.00); Calcium 9.6 mg/dL (8.7-10.3); Carbon Dioxide 26.3 mmol/L (21.6-31.8); Globulin 1.9 g/dL (1.6-3.3); Non-African American GFR(CKD) 93.1 (60.0-200.0); Potassium 4.1 mmol/L (3.5-5.5); Total Bilirubin 0.7 mg/dL (0.3-1.2); Total Protein 6.2 g/dL (6.2-8.2)
== END | disposition home or self-care (01) ==
LOC: LABWHC1 11:43
PROVIDERS: ATTEND Podiatrist
DX: I73.9 Peripheral vascular disease, unspecified (principal); L97.812 Non-pressure chronic ulcer of other part of right lower leg with fat layer exposed; L03.115 Cellulitis of right lower limb; F41.1 Generalized anxiety disorder
CPT/HCPCS: 36415; 80053; 84134; 85025

== ENCOUNTER → 2020-06-02 | Outpatient (CLI) | payer MEDICARE ==
--- NOTE | 2020-06-02 09:24 | CT ---
EXAMINATION TYPE: CT chest wo con DATE OF EXAM: 06/02/2020 COMPARISON: None HISTORY: Nodule of chest wall, nicotine dependence and COPD CT DLP: 268.[address] of the chest was performed with lung and mediastinal window settings submitted. The la ck of contrast limits evaluation of the vascular, mediastinal and parenchymal structures including th e upper abdomen. LUNGS: The lungs are clear and free of infiltrate. No atelectasis. 6 mm pulmonary nodule lateral segm ent right middle lobe. No pleural effusion. No CT evidence of interstitial lung disease. Mild upper lobe emphysematous changes. MEDIASTINUM/ANDREZ: The heart is enlarged. Ectasia ascending thoracic aorta. No evidence for mediastina l mass. No lymph nodes greater than 1cm. UPPER ABDOMEN: No significant abnormality is seen. OTHER: No significant other abnormality. IMPRESSION: 1. Nonspecific pulmonary nodule right middle lobe. Follow-up study in one year is advised.
== END | disposition home or self-care (01) ==
LOC: RADCTMAIN 08:54
PROVIDERS: ATTEND Pediatrics
DX: R91.1 Solitary pulmonary nodule (principal); J44.9 Chronic obstructive pulmonary disease, unspecified; F17.210 Nicotine dependence, cigarettes, uncomplicated
CPT/HCPCS: 71250

== ENCOUNTER → 2021-08-28 | Outpatient (CLI) | payer MEDICARE | END | disposition home or self-care (01) | LOC: LABWHC1 11:02 | PROVIDERS: ATTEND Urology | DX: R97.20 Elevated prostate specific antigen [PSA] (principal) | CPT/HCPCS: 36415; 84153 ==

== ENCOUNTER 2021-09-25 11:40 | Inpatient (IN) | payer MEDICARE ==
[2021-09-25] MEDS ORDERED: DILTIAZEM DRIP BOLUS FROM BAG 1 MG SOLN IV ONE ×2 (12:19→19:00)
[2021-09-25 12:28] LABS: INR 0.9 (<1.2); Partial Thromboplastin Time 24.4 sec (22.0-30.0); Prothrombin Time 10.2 sec (9.0-12.0)
[2021-09-25] MEDS ORDERED: DILTIAZEM 125 MG in SODIUM CHLORIDE 0.9% 100 ML IV SCH (12:30)
--- NOTE | 2021-09-25 12:32 | ED ---
General Adult HPI - General Chief complaint: Dizziness Stated complaint: dizziness Time Seen by Provider: 09/25/21 12:00 Source: patient, EMS, RN notes reviewed, old records reviewed Mode of arrival: EMS Limitations: no limitations - History of Present Illness Initial comments: This is a 66-year-old male who has past medical history significant for bypass surgery. Patient also is a smoker. Patient comes in today stating he felt weak and lightheaded this morning he has never had any history of A. fib or atrial flutter. Patient states he had no chest pain difficulty breathing shortness of breath. Patient denies any recent fever chills or cough per patient denies abdominal pain patient denies nausea vomiting diarrhea. Patient denies any back pain. Patient denies any headache patient denies numbness or focal weakness. - Related Data Home Medications Medication Instructions Recorded Confirmed Clopidogrel [Plavix] 75 mg PO DAILY 11/21/14 09/25/21 buPROPion HCL [Wellbutrin XL] 300 mg PO DAILY 11/21/14 09/25/21 Finasteride [Proscar] 5 mg PO DAILY 08/20/19 09/25/21 Multivitamins, Thera [Multivitamin 1 tab PO DAILY 08/20/19 09/25/21 (formulary)] Tamsulosin [Flomax] 0.4 mg PO HS 08/20/19 09/25/21 Atorvastatin [Lipitor] 40 mg PO HS 09/25/21 09/25/21 metFORMIN HCL [Glucophage XR] 500 mg PO W/SUPPER 09/25/21 09/25/21 Allergies Allergy/AdvReac Type Severity Reaction Status Date / Time No Known Allergies Allergy Verified 09/25/21 12:47 Review of Systems ROS Statement: Those systems with pertinent positive or pertinent negative responses have been documented in the HPI. ROS Other: All systems not noted in ROS Statement are negative. Past Medical History Past Medical History: Coronary Artery Disease (CAD), COPD, Hyperlipidemia, Hypertension, Myocardial Infarction ([place]), Prostate Disorder Additional Past Medical History / Comment(s): STATES "MILD COPD" (NO MEDS), ENLARGED PROSTATE., AAA Last Myocardial Infarction Date:: 2011 History of Any Multi-Drug Resistant Organisms: None Reported Past Surgical History: Coronary Bypass/CABG, Hernia Repair Additional Past Surgical History / Comment(s): TRIPLE CABG (2012), HERNIA (CHILD) Past Anesthesia/Blood Transfusion Reactions: No Reported Reaction Past Psychological History: No Psychological Hx Reported Smoking Status: Current some day smoker Past Alcohol Use History: None Reported Past Drug Use History: None Reported - Past Family History Mother Family Medical History: No Reported History General Exam - General Exam Comments Initial Comments: GENERAL: Patient is well-developed and well-nourished. Patient is nontoxic and well- hydrated and is in mild distress. ENT: Neck is soft and supple. No significant lymphadenopathy is noted. Oropharynx is clear. Moist mucous membranes. Neck has full range of motion without eliciting any pain. There is no thyroid enlargement and no masses were felt. EYES: The sclera were anicteric and conjunctiva were pink and moist. Extraocular movements were intact and pupils were equal round and reactive to light. Eyelids were unremarkable. PULMONARY: Unlabored respirations. Good breath sounds bilaterally. No audible rales rhonchi or wheezing was noted. CARDIOVASCULAR: Patient is tachycardic at 130 beats a minute. ABDOMEN: Soft and nontender with normal bowel sounds. No palpable organomegaly was noted. There is no palpable pulsatile mass. SKIN: Skin is clear with no lesions or rashes and otherwise unremarkable. NEUROLOGIC: Patient is alert and oriented x3. Cranial nerves II through XII are grossly intact. Motor and sensory are also intact. Normal speech, volume and content. Symmetrical smile. MUSCULOSKELETAL: Normal extremities with adequate strength and full range of motion. No lower extremity swelling or edema. No calf tenderness. LYMPHATICS: No significant lymphadenopathy is noted PSYCHIATRIC: Normal psychiatric evaluation. Limitations: no limitations Course Vital Signs 09/25/21 09/25/21 11:44 12:35 Temperature 98 F Pulse Rate 125 H 135 H Respiratory 18 Rate Blood Pressure 138/94 126/78 O2 Sat by Pulse 98 98 Oximetry Medical Decision Making - Medical Decision Making Heart rate is possibly atrial flutter at 127 bpm QRS is 164 QT interval 323 QTC is 398. Patient's EKG shows no ST segment elevation. Patient is placed on a Cardizem drip to slow the heart rate down. Patient was put on heparin because of the atrial flutter. - Lab Data Result diagrams: 09/25/21 12:01 09/25/21 12:01 Lab Results 09/25/21 09/25/21 09/25/21 Range/Units 12:01 12:01 12:01 WBC 8.6 (3.8-10.6) k/uL RBC 5.01 (4.30-5.90) m/uL Hgb 15.1 (13.0-17.5) gm/dL Hct 48.1 (39.0-53.0) % MCV 96.0 (80.0-100.0) fL MCH 30.0 (25.0-35.0) pg MCHC 31.3 (31.0-37.0) g/dL RDW 13.4 (11.5-15.5) % Plt Count 261 (150-450) k/uL MPV 7.4 Neutrophils % 72 % Lymphocytes % 18 % Monocytes % 6 % Eosinophils % 2 % Basophils % 1 % Neutrophils # 6.1 (1.3-7.7) k/uL Lymphocytes # 1.5 (1.0-4.8) k/uL Monocytes # 0.5 (0-1.0) k/uL Eosinophils # 0.1 (0-0.7) k/uL Basophils # 0.0 (0-0.2) k/uL PT 10.2 (9.0-12.0) sec INR 0.9 (<1.2) APTT 24.4 (22.0-30.0) sec D-Dimer (<0.60) mg/L FEU Sodium 140 (137-145) mmol/L Potassium 4.5 (3.5-5.1) mmol/L Chloride 108 H (98-107) mmol/L Carbon Dioxide 28 (22-30) mmol/L Anion Gap 4 mmol/L BUN 18 (9-20) mg/dL Creatinine 0.79 (0.66-1.25) mg/dL Est GFR (CKD-EPI)AfAm >90 (>60 ml/min/1.73 sqM) Est GFR (CKD-EPI)NonAf >90 (>60 ml/min/1.73 sqM) Glucose 75 (74-99) mg/dL Calcium 9.6 (8.4-10.2) mg/dL Magnesium 2.0 (1.6-2.3) mg/dL Total Bilirubin 0.6 (0.2-1.3) mg/dL AST 23 (17-59) U/L ALT 16 (4-49) U/L Alkaline Phosphatase 67 (38-126) U/L Troponin I (0.000-0.034) ng/mL Total Protein 7.0 (6.3-8.2) g/dL Albumin 4.0 (3.5-5.0) g/dL 09/25/21 09/25/21 Range/Units 12:01 12:01 WBC (3.8-10.6) k/uL RBC (4.30-5.90) m/uL Hgb (13.0-17.5) gm/dL Hct (39.0-53.0) % MCV (80.0-100.0) fL MCH (25.0-35.0) pg MCHC (31.0-37.0) g/dL RDW (11.5-15.5) % Plt Count (150-450) k/uL MPV Neutrophils % % Lymphocytes % % Monocytes % % Eosinophils % % Basophils % % Neutrophils # (1.3-7.7) k/uL Lymphocytes # (1.0-4.8) k/uL Monocytes # (0-1.0) k/uL Eosinophils # (0-0.7) k/uL Basophils # (0-0.2) k/uL PT (9.0-12.0) sec INR (<1.2) APTT (22.0-30.0) sec D-Dimer 0.46 (<0.60) mg/L FEU Sodium (137-145) mmol/L Potassium (3.5-5.1) mmol/L Chloride (98-107) mmol/L Carbon Dioxide (22-30) mmol/L Anion Gap mmol/L BUN (9-20) mg/dL Creatinine (0.66-1.25) mg/dL Est GFR (CKD-EPI)AfAm (>60 ml/min/1.73 sqM) Est GFR (CKD-EPI)NonAf (>60 ml/min/1.73 sqM) Glucose (74-99) mg/dL Calcium (8.4-10.2) mg/dL Magnesium (1.6-2.3) mg/dL Total Bilirubin (0.2-1.3) mg/dL AST (17-59) U/L ALT (4-49) U/L Alkaline Phosphatase (38-126) U/L Troponin I <0.012 (0.000-0.034) ng/mL Total Protein (6.3-8.2) g/dL Albumin (3.5-5.0) g/dL Disposition Clinical Impression: Atrial flutter with rapid ventricular response Disposition: ADMITTED IP TO THIS HOSP Referrals: Td Ghosh MD [Primary Care Provider] - 1-2 days Time of Disposition: 13:09
[2021-09-25 12:35] LABS: ALT 16 U/L (4-49); AST 23 U/L (17-59); African American GFR (CKD) >90 (>60 ml/min/1.73 sqM); Alkaline Phosphatase 67 U/L (38-126); Anion Gap 4 mmol/L; Blood Urea Nitrogen 18 mg/dL (9-20); Calcium 9.6 mg/dL (8.4-10.2); Carbon Dioxide 28 mmol/L (22-30); Chloride 108 mmol/L (98-107); Glucose 75 mg/dL (74-99); Non-African American GFR(CKD) >90 (>60 ml/min/1.73 sqM); Potassium 4.5 mmol/L (3.5-5.1); Sodium 140 mmol/L (137-145); Total Bilirubin 0.6 mg/dL (0.2-1.3)
[2021-09-25 12:38] LABS: HCT 48.1 % (39.0-53.0); HGB 15.1 gm/dL (13.0-17.5); MCHC 31.3 g/dL (31.0-37.0); Mean Platelet Volume 7.4; Neutrophils % (A) 72 %; Platelet Count 261 k/uL (150-450); RBC 5.01 m/uL (4.30-5.90); RDW 13.4 % (11.5-15.5); WBC 8.6 k/uL (3.8-10.6)
[2021-09-25 12:39] LABS: Basophils % (A) 1 %; Eosinophils # (A) 0.1 k/uL (0-0.7); Eosinophils % (A) 2 %; Lymphocytes # (A) 1.5 k/uL (1.0-4.8); Lymphocytes % (A) 18 %; Monocytes # (A) 0.5 k/uL (0-1.0); Monocytes % (A) 6 %; Neutrophils # (A) 6.1 k/uL (1.3-7.7)
--- NOTE | 2021-09-25 12:42 | XR ---
EXAMINATION TYPE: XR chest 2V DATE OF EXAM: 09/25/2021 COMPARISON: 08/11/2019 TECHNIQUE: PA and lateral views submitted. HISTORY: Dysrhythmia FINDINGS: The lungs are clear and there is no pneumothorax, pleural effusion, or focal pneumonia. Postoperati ve change is normal cardiomegaly. Hyperinflation suggests COPD hypertrophic and degenerative changes spine. IMPRESSION: 1. COPD.
[2021-09-25] MEDS ORDERED: HEPARIN SODIUM 1,000 UN/ML (10ML VL) IV ONE (13:10)
[2021-09-25] MEDS ORDERED: HEPARIN SOD,PORK IN 0.45% NACL 25,000 UNIT in 0.45% NACL 1 250ML.BAG IV SCH (13:15)
[2021-09-25] MEDS ORDERED: NITROGLYCERIN SL TABS 0.4 MG TAB SUBLINGUAL PRN (13:20)
[2021-09-25] MEDS: INSULIN ASPART (NovoLOG) 100 UNIT/ML VIAL SQ SCH ×2 (17:52→20:16)
[2021-09-25 18:11] LABS: Glucose,Whole Blood 171 mg/dL (75-99)
[2021-09-25] MEDS: TAMSULOSIN 0.4 MG CAP.ER.24H PO SCH (18:58)
[2021-09-25] MEDS: METOPROLOL TARTRATE 50 MG TAB PO SCH (18:58)
[2021-09-25] MEDS: ATORVASTATIN 40 MG TAB PO SCH (18:58)
[2021-09-25 20:15] LABS: Glucose,Whole Blood 186 mg/dL (75-99)
--- NOTE | 2021-09-25 22:26 | P.HPIM ---
History of Present Illness H&P Date: 09/25/21 Chief Complaint: Dizziness Patient is a 66-year-old male with a known history of coronary artery disease status post CABG, hypertension, hyperlipidemia, history of PR and COPD, currently ongoing nicotine addiction presents to ER with the complaints of dizziness. Patient states that he woke up in the morning and felt dizzy. He tried to bend over to some work and felt very dizzy and weak upon standing up straight. Patient was brought to hospital by his family member. Denies any complaints of chest pain or shortness breath. No nausea vomiting abdominal pain or diarrhea. Denies any recent illnesses. No sick contacts at home. No recent travel. No prior history of atrial flutter or pulmonary embolism. EKG showed atrial flutter with rapid ventricular rate. Chest x-ray showed COPD. Laboratory data showed WBC 8.6 hemoglobin 15.1 and platelets 261 D-dimer level i s 0.46 Sodium 140 potassium 4.4 chloride 108 bicarb is 28 BUN 18 creatinine 0.79, magnesium 2.0 Troponin x3 - and liver enzymes are not elevated. Review of Systems Constitutional: Patient denies any fever or chills . No generalized weakness or weight loss. Abdomen: Patient denied nausea vomiting and diarrhea and abdominal pain. Cardiovascular: Patient denies any chest pain or short of breath no palpitations. Respiratory: patient denied any cough or sputum production. No shortness of breath Neurologic: Patient denied any numbness or tingling headache. Musculoskeletal: Patient denies any complaints of joint swelling or deformity. Skin: Negative Psychiatric: Negative Endocrine: No heat or cold intolerance. No recent weight gain. Genitourinary: No dysuria or hematuria. All other 14 point ROS negative except the above Past Medical History Past Medical History: Coronary Artery Disease (CAD), COPD, Hyperlipidemia, Hyper tension, Myocardial Infarction ([place]), Prostate Disorder Additional Past Medical History / Comment(s): STATES "MILD COPD" (NO MEDS), ENLARGED PROSTATE., AAA Last Myocardial Infarction Date:: 2011 History of Any Multi-Drug Resistant Organisms: None Reported Past Surgical History: Coronary Bypass/CABG, Hernia Repair Additional Past Surgical History / Comment(s): TRIPLE CABG (2012), HERNIA (CHILD) Past Anesthesia/Blood Transfusion Reactions: No Reported Reaction Past Psychological History: No Psychological Hx Reported Smoking Status: Current some day smoker Past Alcohol Use History: None Reported Past Drug Use History: None Reported - Past Family History Mother Family Medical History: No Reported History Medications and Allergies Home Medications Medication Instructions Recorded Confirmed Type Clopidogrel [Plavix] 75 mg PO DAILY 11/21/14 09/25/21 History buPROPion HCL [Wellbutrin XL] 300 mg PO DAILY 11/21/14 09/25/21 History Finasteride [Proscar] 5 mg PO DAILY 08/20/19 09/25/21 History Multivitamins, Thera [Multivitamin 1 tab PO DAILY 08/20/19 09/25/21 History (formulary)] Tamsulosin [Flomax] 0.4 mg PO HS 08/20/19 09/25/21 History Atorvastatin [Lipitor] 40 mg PO HS 09/25/21 09/25/21 History metFORMIN HCL [Glucophage XR] 500 mg PO W/SUPPER 09/25/21 09/25/21 History Allergies Allergy/AdvReac Type Severity Reaction Status Date / Time No Known Allergies Allergy Verified 09/25/21 12:47 Physical Exam Vitals: Vital Signs Temp Pulse Resp BP Pulse Ox 09/25/21 14:57 133 H 18 127/89 100 09/25/21 13:45 129 H 18 113/81 09/25/21 12:35 135 H 126/78 98 09/25/21 11:44 98 F 125 H 18 138/94 98 Intake and Output 09/25/21 09/25/21 09/25/21 06:59 14:59 22:59 Intake Total 6.833 Balance 6.833 Intake: Intake, IV Titration 6.833 Amount Diltiazem 125 mg In 6.833 Sodium Chloride 0.9% 100 ml @ 5 MG/HR 5 mls/hr IV .Q24H [facility] Rx#:[id number] Other: Weight 72.575 kg PHYSICAL EXAMINATION: Patient is lying in the bed comfortably, no acute distress, awake alert and oriented.. HEENT: Normocephalic. Neck is supple. Pupils reactive. Nostrils clear. Oral cavity is moist. Neck reveals no JVD, carotid bruits, or thyromegaly. CHEST EXAMINATION: Trachea is central. Symmetrical expansion. Lung cary clear to auscultation and percussion. CARDIAC: Normal S1, S2 with no gallops. No murmurs Irregularly regular rhythm. ABDOMEN: Soft. Bowel sounds normal. No organomegaly. No abdominal bruits. Extremities: reveal no edema. No clubbing or cyanosis Neurologically awake, alert, oriented x3 with well-coordinated movements. No focal deficits noted Skin: No rash or skin lesions. Psychiatric: Cooperative. Nonsuicidal Musculoskeletal: No joint swelling or deformity. Normal range of motion. Results CBC & Chem 7: 09/25/21 12:01 09/25/21 12:01 Labs: Abnormal Lab Results - Last 24 Hours (Table) 09/25/21 Range/Units 12:01 Chloride 108 H (98-107) mmol/L Thrombosis Risk Factor Assmnt - DVT/VTE Prophylaxis DVT/VTE Prophylaxis: Pharmacologic Prophylaxis ordered Assessment and Plan Assessment: New onset atrial flutter with rapid ventilator rate Dizziness due to above Coronary disease history of CABG Abdominal aortic aneurysm 5.6 x 5.1 vascular CTA abdomen on 08/10/2019 COPD History of PR Hypertension Hyperlipidemia Currently some day smoker DVT prophylaxis patient is already on heparin drip Plan: Patient will be continued on heparin drip and Cardizem drip was started. Titrate Cardizem drip to control heart rate below 100 and follow-up TSH level. Patient will be continued on home medications. Cardiology was consulted for evaluation. Current with telemetry monitoring. Smoking cessation has been counseled. Time with Patient: Greater than 30
[2021-09-26 06:19] LABS: Glucose,Whole Blood 108 mg/dL (75-99)
[2021-09-26] MEDS: INSULIN ASPART (NovoLOG) 100 UNIT/ML VIAL SQ SCH ×3 (06:56→20:17)
[2021-09-26] MEDS ORDERED: ASPIRIN 325 MG TAB PO SCH (09:00)
[2021-09-26] MEDS ORDERED: CLOPIDOGREL 75 MG TAB PO SCH (09:00)
[2021-09-26] MEDS ORDERED: ASPIRIN 81 MG PO SCH ×2 (09:00→09:45)
[2021-09-26 09:47] LABS: African American GFR (CKD) >90 (>60 ml/min/1.73 sqM); Anion Gap 6 mmol/L; Blood Urea Nitrogen 15 mg/dL (9-20); Calcium 9.1 mg/dL (8.4-10.2); Carbon Dioxide 23 mmol/L (22-30); Chloride 108 mmol/L (98-107); Glucose 238 mg/dL (74-99); Non-African American GFR(CKD) >90 (>60 ml/min/1.73 sqM); Potassium 4.2 mmol/L (3.5-5.1); Sodium 137 mmol/L (137-145)
[2021-09-26] MEDS: buPROPion XL 300 MG TAB.ER.24H PO SCH (10:20)
[2021-09-26] MEDS: FINASTERIDE 5 MG TAB PO SCH (10:20)
[2021-09-26] MEDS: METOPROLOL TARTRATE 50 MG TAB PO SCH ×2 (10:21→20:18)
[2021-09-26] MEDS: APIXABAN 5 MG TAB PO SCH ×2 (11:29→20:17)
--- NOTE | 2021-09-26 12:28 | P.CRDCN ---
History of Present Illness History of present illness: This ius a 66 year old male with past medical history of [place], coronary artery disease status post 3vessel CABG 11 years ago, hypertension, hyperlipidemia,and COPD, currently ongoing nicotine dependence, type 2 diabetes, abdominal aortic aneurysm s/p repair on 08/24/2019. He follows with Dr. Vic Krishna. We have been consulted for atrial fibrillation with RVR. Patient presents to the emergency department with acute onset of lightheadedness and generalized weakness. He states he woke up yesterday out of bed and states he "Didnt feel right". He was lightheaded and felt weak. His son is an EMT, he checked his blood pressure and heart rate, did an EKG and noted his heart rate to be tachycardic and irregular, brought to ER for further evaluation. He denies chest pain, shortness of breath, dizziness, syncope or near syncope. Denies symptoms of orthopnea and PND. He denies any further stent placements after CABG. Denies history of stroke. DIAGNOSTICS EKG reveals atrial flutter with RR HR 127 Telemetry tracings indicate atrial flutter HR better controlled 60s-80 Chest xray hyperinflation suggesting COPD Laboratory reviewed, CBC unremarkable, d-dimer negative, troponin negative 3, sodium 140, potassium 4.5, BUN 18, serum creatinine 0.7, magnesium 2.0 Current home medications include aspirin 81 mg daily, Plavix 75 mg daily, atorvastatin 40 mg nightly, Wellbutrin, metformin, Proscar REVIEW OF SYSTEMS At the time of my exam: CONSTITUTIONAL: Denies fever or chills. CARDIOVASCULAR: Denies chest pain, shortness of breath, orthopnea, PND or palpitations. RESPIRATORY: Denies cough. GASTROINTESTINAL: Denies abdominal pain, diarrhea, constipation, nausea or vomiting. MUSCULOSKELETAL: Denies myalgias. NEUROLOGIC: Denies numbness, tingling, headacbe or weakness. ENDOCRINE: Denies fatigue, weight change, polydipsia or polyurina. GENITOURINARY: Denies burning, hematuria or urgency with micturation. HEMATOLOGIC: Denies history of anemia or bleeding. PHYSICAL EXAMINATION Vitals 106/64, heart rate 68, afebrile, saturation denies emphysema room air CONSTITUTIONAL: No apparent distress. HEENT: Head is normocephalic. Pupils are equal, round. Sclerae anicteric. Mucous membranes of the mouth are moist. No JVD. No carotid bruit. CHEST EXAMINATION: Lungs are clear to auscultation. No chest wall tenderness is noted on palpation or with deep breathing. HEART EXAMINATION: Irregular rate and rhythm. S1, S2 heard. systolic murmur noted, No gallops or rub. ABDOMEN: Soft, nontender. Positive bowel sounds. EXTREMITIES: 2+ peripheral pulses, no lower extremity edema and no calf tenderness. SKIN: warm, dry NEUROLOGIC EXAMINATION: Patient is awake, alert and oriented x3. ASSESSMENT Typical atrial flutter with rapid ventricular response -[id number] score 4 Coronary artery disease status post 3vessel CABG 11 years ago History of hypertension Type 2 Diabetes Hyperlipidemia COPD Nicotine dependence Abdominal aortic aneurysm s/p repair on 08/24/2019 PLAN Obtain 2D echocardiogram Stop IV Cardizem Continue metroprolol tartrate 50mg BID Consult case management for Eliquis coverage, per case management Eliquis is covered with $42 copay Stop IV heparin and Start Eliquis 5mg BID Stop aspirin, continue Plavix Continue cardiac telemetry Further recommendations based on clinical course On discharge patient to follow-up with his certified addiction counselor Dr. Krishna Nurse practitioner note has been reviewed by physician. Signing provider agrees with the documented findings, assessment, and plan of care. Past Medical History Past Medical History: Coronary Artery Disease (CAD), COPD, Hyperlipidemia, Hypertension, Myocardial Infarction (MO), Prostate Disorder Additional Past Medical History / Comment(s): STATES "MILD COPD" (NO MEDS), ENLARGED PROSTATE., AAA Last Myocardial Infarction Date:: 2011 History of Any Multi-Drug Resistant Organisms: None Reported Past Surgical History: Coronary Bypass/CABG, Hernia Repair Additional Past Surgical History / Comment(s): TRIPLE CABG (2012), HERNIA (CHILD) Past Anesthesia/Blood Transfusion Reactions: No Reported Reaction Past Psychological History: No Psychological Hx Reported Smoking Status: Current some day smoker Past Alcohol Use History: None Reported Past Drug Use History: None Reported - Past Family History Mother Family Medical History: No Reported History Medications and Allergies Home Medications Medication Instructions Recorded Confirmed Type Clopidogrel [Plavix] 75 mg PO DAILY 11/21/14 09/25/21 History buPROPion HCL [Wellbutrin XL] 300 mg PO DAILY 11/21/14 09/25/21 History Finasteride [Proscar] 5 mg PO DAILY 08/20/19 09/25/21 History Multivitamins, Thera [Multivitamin 1 tab PO DAILY 08/20/19 09/25/21 History (formulary)] Tamsulosin [Flomax] 0.4 mg PO HS 08/20/19 09/25/21 History Atorvastatin [Lipitor] 40 mg PO HS 09/25/21 09/25/21 History metFORMIN HCL [Glucophage XR] 500 mg PO W/SUPPER 09/25/21 09/25/21 History Apixaban [Eliquis] 5 mg PO BID 30 Days #60 tab 09/26/21 Rx Allergies Allergy/AdvReac Type Severity Reaction Status Date / Time No Known Allergies Allergy Verified 09/25/21 12:47 Physical Exam Vitals: Vital Signs Temp Pulse Pulse Pulse Resp BP BP 09/26/21 03:46 98.4 F 88 12 118/72 09/26/21 02:00 135 H 09/25/21 23:28 56 L 12 109/66 09/25/21 20:00 98.6 F 130 H 135 H 14 126/83 09/25/21 18:10 97.8 F 130 H 16 124/78 09/25/21 16:00 97.9 F 135 H 16 122/70 09/25/21 14:57 133 H 18 127/89 09/25/21 13:45 129 H 18 113/81 09/25/21 12:35 135 H 126/78 09/25/21 11:44 98 F 125 H 18 138/94 Pulse Ox 09/26/21 03:46 97 09/26/21 02:00 09/25/21 23:28 96 09/25/21 20:00 95 09/25/21 18:10 95 09/25/21 16:00 97 09/25/21 14:57 100 09/25/21 13:45 09/25/21 12:35 98 09/25/21 11:44 98 Intake and Output 09/25/21 09/26/21 09/26/21 22:59 06:59 14:59 Intake Total 55.883 76.565 Balance 55.883 76.565 Intake: Intake, IV Titration 55.883 76.565 Amount Heparin Sod,Pork in 0.45% 55.883 76.565 NaCl 25,000 unit In 0.45 % NaCl 1 250ml.bag @ 12 UNITS/KG/HR 8.709 mls/hr IV .Q24H [facility] Rx#: [id number] Other: # Voids 1 1 Weight 72.575 kg Results 09/25/21 12:01 09/26/21 08:30 Cardiac Enzymes 09/25/21 09/25/21 09/25/21 Range/Units 12:01 12:01 15:18 AST 23 (17-59) U/L Troponin I <0.012 <0.012 (0.000-0.034) ng/mL 09/25/21 Range/Units 18:47 AST (17-59) U/L Troponin I <0.012 (0.000-0.034) ng/mL Coagulation 09/25/21 09/25/21 09/26/21 Range/Units 12:01 18:47 01:54 PT 10.2 (9.0-12.0) sec APTT 24.4 30.3 H 35.0 H (22.0-30.0) sec CBC 09/25/21 Range/Units 12:01 WBC 8.6 (3.8-10.6) k/uL RBC 5.01 (4.30-5.90) m/uL Hgb 15.1 (13.0-17.5) gm/dL Hct 48.1 (39.0-53.0) % Plt Count 261 (150-450) k/uL Comprehensive Metabolic Panel 09/25/21 Range/Units 12:01 Sodium 140 (137-145) mmol/L Potassium 4.5 (3.5-5.1) mmol/L Chloride 108 H (98-107) mmol/L Carbon Dioxide 28 (22-30) mmol/L BUN 18 (9-20) mg/dL Creatinine 0.79 (0.66-1.25) mg/dL Glucose 75 (74-99) mg/dL Calcium 9.6 (8.4-10.2) mg/dL AST 23 (17-59) U/L ALT 16 (4-49) U/L Alkaline Phosphatase 67 (38-126) U/L Total Protein 7.0 (6.3-8.2) g/dL Albumin 4.0 (3.5-5.0) g/dL Current Medications Generic Name Dose Route Start Last Admin Trade Name Freq PRN Reason Stop Dose Admin Aspirin 81 mg 09/26/21 09:00 Aspirin 325 Mg Tab PO DAILY [facility] Atorvastatin Calcium 40 mg 09/25/21 21:00 09/25/21 18:58 Atorvastatin 40 Mg Tab PO 40 mg HS [facility] Administration Bupropion HCl 300 mg 09/26/21 09:00 Bupropion Xl 300 Mg Tab.Er.24h PO DAILY [facility] Finasteride 5 mg 09/26/21 09:00 Finasteride 5 Mg Tab PO DAILY [facility] Diltiazem HCl 125 mg/ Sodium 125 mls @ 10 mls/hr 09/25/21 12:30 09/25/21 14:10 Chloride IV 7.5 mg/hr .[id number] MELINDA 7.5 mls/hr Infusion 10 MG/HR Heparin Sodium/Sodium Chloride 250 mls @ 8.709 mls/hr 09/25/21 13:15 09/26/21 03:09 25,000 unit/ Sodium Chloride IV 18 units/kg/hr .Q24H MELINDA 13.064 mls/hr Titration Protocol 12 UNITS/KG/HR Insulin Aspart 0 unit 09/25/21 17:30 09/26/21 06:56 Insulin Aspart (Novolog) 100 Unit/Ml Vial SQ Not Given ACHS [facility] Protocol Metoprolol Tartrate 50 mg 09/25/21 19:30 09/25/21 18:58 Metoprolol Tartrate 50 Mg Tab PO 50 mg BID MELINDA Administration Nitroglycerin 0.4 mg 09/25/21 13:20 Nitroglycerin Sl Tabs 0.4 Mg Tab SUBLINGUAL Q5M PRN Chest Pain Tamsulosin HCl 0.4 mg 09/25/21 21:00 09/25/21 18:58 Tamsulosin 0.4 Mg Cap.Er.24h PO 0.4 mg HS [facility] Administration Intake and Output 09/25/21 09/26/21 09/26/21 22:59 06:59 14:59 Intake Total 55.883 76.565 Balance 55.883 76.565 Intake: Intake, IV Titration 55.883 76.565 Amount Heparin Sod,Pork in 0.45% 55.883 76.565 NaCl 25,000 unit In 0.45 % NaCl 1 250ml.bag @ 12 UNITS/KG/HR 8.709 mls/hr IV .Q24H [facility] Rx#: [id number] Other: # Voids 1 1 Weight 72.575 kg 09/25/21 12:01 09/25/21 12:01
--- NOTE | 2021-09-26 12:31 | ECHOF ---
Referral Reason:new onset a flutter MEASUREMENTS -------- HEIGHT: 180.3 cm WEIGHT: 72.6 kg BP: IVSd: 1.5 cm (0.6 - 1.1) LVIDd: 4.2 cm (3.9 - 5.3) LVPWd: 1.7 cm (0.6 - 1.1) EDV(Teich): 77 ml IVSs: 2.0 cm LVIDs: 3.3 cm LVPWs: 1.9 cm %IVS Thck: 36 % ESV(Teich): 44 ml EF(Teich): 43 % %FS: 21 % SV(Teich): 33 ml RVIDd: 3.0 cm (< 3.3) IVC: 19.20 mm LALs A4C: 5.5 cm LAAs A4C: 18.8 cm LAESV A-L A4C: 55 ml LAESV MOD A4C: 51 ml LALs A2C: 5.3 cm LAAs A2C: 18.3 cm LAESV A-L A2C: 53 ml LAESV MOD A2C: 50 ml LAESV(A-L): 55 ml LAESV Index (A-L): 28.53 ml/m Ao Diam: 3.9 cm (2.0 - 3.7) LA Diam: 3.1 cm (2.7 - 3.8) AV Cusp: 2.4 cm (1.5 - 2.6) EPSS: 1.0 cm MR Vmax: 0.78 m/s MR maxP.46 mmHg AV Vmax: 1.43 m/s AV maxP.39 mmHg TR Vmax: 0.87 m/s TR maxP.03 mmHg RAP: 5.00 mmHg RVSP: 8.03 mmHg MV EF SLOPE: 118.78 mm/s (70 - 150) MV EXCURSION: 10.76 mm (> 18.000) FINDINGS -------- This was a technically good study. The left ventricular size is normal. There is moderate concentric left ventricular hypertrophy. O verall left ventricular systolic function is low-normal with, an EF between 50 - 55 %. The right ventricle is normal in size. The left atrial size is normal. Normal LA size by volume 22+/-6 ml/m2. The right atrial size is normal. Aortic valve is trileaflet and is mildly thickened. The mitral valve is normal. The mitral valve leaflets are mildly thickened. Mild mitral annular c alcification present. Mild mitral regurgitation is present. The tricuspid valve appears structurally normal. Mild tricuspid regurgitation present. Right vent ricular systolic pressure is normal at < 35 mmHg. There is no pulmonic regurgitation present. 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 Normal inferior vena cava with normal inspiratory collapse consistent with estimated right atrial pre ssure of 5 mmHg. There is no pericardial effusion. CONCLUSIONS -------- 1. The left ventricular size is normal. 2. There is moderate concentric left ventricular hypertrophy. 3. Overall left ventricular systolic function is low-normal with, an EF between 50 - 55 %. 4. Aortic valve is trileaflet and is mildly thickened. 5. The mitral valve leaflets are mildly thickened. 6. Mild mitral annular calcification present. 7. Mild mitral regurgitation is present. 8. Mild tricuspid regurgitation present. 9. 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 10. Normal inferior vena cava with normal inspiratory collapse consistent with estimated right atrial pressure of 5 mmHg. 11. There is no pericardial effusion. D[employer]ITY [employer] PUNCHER: Dora Cota RDCS
[2021-09-26 16:41] LABS: Glucose,Whole Blood 92 mg/dL (75-99)
[2021-09-26 20:15] LABS: Glucose,Whole Blood 129 mg/dL (75-99)
[2021-09-26] MEDS: ATORVASTATIN 40 MG TAB PO SCH (20:17)
[2021-09-26] MEDS: TAMSULOSIN 0.4 MG CAP.ER.24H PO SCH (20:18)
[2021-09-26 23:16] LABS: LDL Cholesterol,Calculated 62.9 mg/dL (0.0-131.0); VLDL Calculation 18.52 mg/dL (5.00-40.00)
--- NOTE | 2021-09-26 23:40 | P.PN ---
Subjective Progress Note Date: 09/26/21 Patient is a 66-year-old male with a known history of coronary artery disease status post CABG, hypertension, hyperlipidemia, history of [place] and COPD, currently ongoing nicotine addiction presents to ER with the complaints of dizziness. Patient states that he woke up in the morning and felt dizzy. He tr ied to bend over to some work and felt very dizzy and weak upon standing up straight. Patient was brought to hospital by his family member. Denies any complaints of chest pain or shortness breath. No nausea vomiting abdominal pain or diarrhea. Denies any recent illnesses. No sick contacts at home. No recent travel. No prior history of atrial flutter or pulmonary embolism. EKG showed atrial flutter with rapid ventricular rate. Chest x-ray showed COPD. Laboratory data showed WBC 8.6 hemoglobin 15.1 and platelets 261 D-dimer level is 0.46 Sodium 140 potassium 4.4 chloride 108 bicarb is 28 BUN 18 creatinine 0.79, magnesium 2.0 Troponin x3 - and liver enzymes are not elevated. 09/26/2021 Patient is seen in follow up this morning and being closely monitored by cardiology. Patient being transitioned off IV heparin and cardizem and being started on oral medications. Patient denies chest pain or palpitations. Patient is afebrile. Patient denies shortness of breath. Patient tolerating diet. Patient denies any further dizziness. Family at the bedside. Review of systems: Constitutional: No reports of fatigue, fever, or chills Cardiovascular: No reports of chest pain or palpitations, reports dizziness improved Respiratory: No reports of shortness of breath or cough GI: no reports of nausea, no reports of of vomiting, no reports of diarrhea : No reports of dysuria or retention Neurovascular: no reports of generalized weakness All medications have been reviewed Active Medications Apixaban (Apixaban 5 Mg Tab) 5 mg PO BID [facility]; Protocol Last Admin: 09/26/21 20:17 Dose: 5 mg Documented by: Atorvastatin Calcium (Atorvastatin 40 Mg Tab) 40 mg PO [facility] Last Admin: 09/26/21 20:17 Dose: 40 mg Documented by: Bupropion HCl (Bupropion Xl 300 Mg Tab.Er.24h) 300 mg PO DAILY [facility] Last Admin: 09/26/21 10:20 Dose: 300 mg Documented by: Clopidogrel Bisulfate (Clopidogrel 75 Mg Tab) 75 mg PO DAILY [facility] Finasteride (Finasteride 5 Mg Tab) 5 mg PO DAILY [facility] Last Admin: 09/26/21 10:20 Dose: 5 mg Documented by: Insulin Aspart (Insulin Aspart (Novolog) 100 Unit/Ml Vial) 0 unit SQ ACHS [facility]; Protocol Last Admin: 09/26/21 20:17 Dose: Not Given Documented by: Metoprolol Tartrate (Metoprolol Tartrate 50 Mg Tab) 50 mg PO BID [facility] Last Admin: 09/26/21 20:18 Dose: 50 mg Documented by: Nitroglycerin (Nitroglycerin Sl Tabs 0.4 Mg Tab) 0.4 mg SUBLINGUAL Q5M PRN PRN Reason: Chest Pain Tamsulosin HCl (Tamsulosin 0.4 Mg Cap.Er.24h) 0.4 mg PO HS [facility] Last Admin: 09/26/21 20:18 Dose: 0.4 mg Documented by: PHYSICAL EXAMINATION: GENERAL: The patient is alert and oriented x4, Well developed, well nourished. HEENT: Pupils are round and equally reacting to light. EOMI. no scleral icterus. No conjunctival pallor. Normocephalic, atraumatic. No pharyngeal erythema. No thyromegaly. CARDIOVASCULAR: S1 and S2 muffled PULMONARY: diminished breath sounds bilaterally with no wheezing or rhonchi noted. ABDOMEN: soft. Nontender on exam. non-distended, normoactive bowel sounds. No palpable organomegaly. MUSCULOSKELETAL: No joint swelling or deformity. EXTREMITIES: No cyanosis, clubbing, or edema noted NEUROLOGICAL: Gross neurological examination did not reveal any focal deficits. SKIN: No rashes. Assessment: New onset atrial flutter with rapid ventilator rate Dizziness due to above, resolved Coronary artery disease history of CABG Abdominal aortic aneurysm 5.6 x 5.1 vascular CTA abdomen on 08/10/2019 COPD History of [place] Hypertension Hyperlipidemia Currently some day smoker DVT prophylaxis transitioned to eliquis Plan: Recommend to continue with current medications and continue with cardiology following closely Discontinue IV heparin and transition to Eliquis Cardizem discontinued Cardiology following and discussed treatment plan with possible discharge in 24 hours Strongly encouraged patient to follow up with his feller hand once discharged Encouraged smoking cessation Guarded prognosis The impression and plan of care has been dictated by Beth Posadas, nurse practitioner as directed. Dr. Lyndsay MD I have performed a history and examination and MDM of this patient, discussed the same with the dictator, and agree with the dictator's assessment and plan as written ,documented as a scribe. Based on total visit time, I have performed more than 50% of the visit. Objective - Vital Signs Vital signs: Vital Signs Temp 97.8 F 09/26/21 07:55 Pulse 68 09/26/21 07:55 Resp 18 09/26/21 07:55 BP 106/64 09/26/21 07:55 Pulse Ox 97 09/26/21 07:55 Intake & Output 09/25/21 09/26/21 09/26/21 18:59 06:59 18:59 Intake Total 6.833 132.448 Balance 6.833 132.448 Weight 72.575 kg Intake: Intake, IV Titration 6.833 132.448 Amount Diltiazem 125 mg In 6.833 Sodium Chloride 0.9% 100 ml @ 10 MG/HR 10 mls/hr IV .[id number] [facility] Rx#: [id number] Heparin Sod,Pork in 0.45% 132.448 NaCl 25,000 unit In 0.45 % NaCl 1 250ml.bag @ 12 UNITS/KG/HR 8.709 mls/hr IV .Q24H [facility] Rx#: [id number] Other: # Voids 1 - Labs CBC & Chem 7: 09/25/21 12:01 09/26/21 08:30 Labs: Abnormal Lab Results - Last 24 Hours (Table) 09/25/21 09/25/21 09/25/21 Range/Units 12:01 18:08 18:47 APTT 30.3 H (22.0-30.0) sec Chloride 108 H (98-107) mmol/L POC Glucose (mg/dL) 171 H (75-99) mg/dL 09/25/21 09/26/21 09/26/21 Range/Units 20:12 01:54 06:18 APTT 35.0 H (22.0-30.0) sec Chloride (98-107) mmol/L POC Glucose (mg/dL) 186 H 108 H (75-99) mg/dL 09/26/21 Range/Units 08:30 APTT 44.3 H (22.0-30.0) sec Chloride (98-107) mmol/L POC Glucose (mg/dL) (75-99) mg/dL
[2021-09-27 06:12] LABS: Glucose,Whole Blood 116 mg/dL (75-99)
[2021-09-27] MEDS: INSULIN ASPART (NovoLOG) 100 UNIT/ML VIAL SQ SCH ×4 (06:18→20:55)
[2021-09-27] MEDS: CLOPIDOGREL 75 MG TAB PO SCH (08:24)
[2021-09-27] MEDS: METOPROLOL TARTRATE 50 MG TAB PO SCH ×2 (08:24→19:51)
[2021-09-27] MEDS: APIXABAN 5 MG TAB PO SCH ×2 (08:24→19:51)
[2021-09-27] MEDS: buPROPion XL 300 MG TAB.ER.24H PO SCH (08:24)
[2021-09-27] MEDS: FINASTERIDE 5 MG TAB PO SCH (08:24)
[2021-09-27] MEDS: DILTIAZEM 125 MG in SODIUM CHLORIDE 0.9% 100 ML IV SCH (10:57)
[2021-09-27 11:53] LABS: Glucose,Whole Blood 112 mg/dL (75-99)
--- NOTE | 2021-09-27 12:34 | P.PN ---
Subjective This is a 66 year old male with past medical history of [place], coronary artery disease status post 3vessel CABG 11 years ago, hypertension, hyperlipidemia,and COPD, currently ongoing nicotine dependence, type 2 diabetes, abdominal aortic aneurysm s/p repair on 08/24/2019. He follows with Dr. Vic Krishna. We have been consulted for atrial fibrillation with RVR. Patient presents to the emergency department with acute onset of lightheadedness and generalized weakness. He states he woke up yesterday out of bed and states he "Didnt feel right". He was lightheaded and felt weak. His son is an EMT, he checked his blood pressure and heart rate, did an EKG and noted his heart rate to be tachycardic and irregular, brought to ER for further evaluation. He denies chest pain, shortness of breath, dizziness, syncope or near syncope. Denies symptoms of orthopnea and PND. He denies any further stent placements after CABG. Denies history of stroke. EKG reveals atrial flutter with RR HR 127 09/27/2021 Patient seen and examined at bedside, distress. He denies any chest pain, shortness of breath lightheadedness or dizziness. Occasionally feels palpitations. This morning patient was tachycardic in atrial flutter with heart rate sustaining in the 130s. Echocardiogram revealed an EF of 5055%, moderate concentric LVH, mild mitral regurgitation, mild tricuspid regurgitation. He's currently maintained on Eliquis 5 mg twice a day, atorvastatin 40 mg nightly, Plavix 75 mg daily, metoprolol tartrate 50 mg BID PHYSICAL EXAMINATION Vitals 117/85, heart rate 138, afebrile, oxygen saturation is 98% on room air CONSTITUTIONAL: No apparent distress. HEENT: No JVD. No carotid bruit. CHEST EXAMINATION: Lungs are clear to auscultation. No chest wall tenderness is noted on palpation or with deep breathing. HEART EXAMINATION: Irregular rate and rhythm. S1, S2 heard. systolic murmur noted, No gallops or rub. ABDOMEN: Soft, nontender. Positive bowel sounds. EXTREMITIES: 2+ peripheral pulses, no lower extremity edema and no calf tenderness. SKIN: warm, dry NEUROLOGIC EXAMINATION: Patient is awake, alert and oriented x3. ASSESSMENT Typical atrial flutter with rapid ventricular response -[id number] score 4 Coronary artery disease status post 3vessel CABG 11 years ago History of hypertension Type 2 Diabetes Hyperlipidemia COPD Nicotine dependence Abdominal aortic aneurysm s/p repair on 08/24/2019 PLAN Restart IV Cardizem for better rate control NPO after midnight Plan [facility] Cardioversion with Dr. Verma 09/28/21 Continue metroprolol tartrate 50mg BID Continue Eliquis, per case management this medication is covered with $42 copay Continue Plavix and statin Continue cardiac telemetry Further recommendations based on clinical course On discharge patient to follow-up with his paper conservator Dr. Krishna I have discussed the risks, benefits and alternative therapies for the above- mentioned procedure and for both sedation/analgesia, if indicated, as they pertain to this patient. The patient has indicated understanding and acceptance of the risks and procedures discussed. Questions have been answered appropriate ly and he is agreeable to move forward with the above-stated procedure. Nurse practitioner note has been reviewed by physician. Signing provider agrees with the documented findings, assessment, and plan of care. Objective - Vital Signs Vital signs: Vital Signs Temp 97.5 F L 09/27/21 08:00 Pulse 138 H 09/27/21 08:00 Resp 12 09/27/21 08:00 BP 117/85 09/27/21 08:00 Pulse Ox 98 09/27/21 08:00 Intake & Output 09/26/21 09/27/21 09/27/21 18:59 06:59 18:59 Intake Total 1999 118 Balance 1999 118 Intake: Oral 1999 118 Other: Voiding Method Toilet Toilet Urinal Urinal # Voids 3 1 - Labs CBC & Chem 7: 09/25/21 12:01 09/26/21 08:30 Labs: Abnormal Lab Results - Last 24 Hours (Table) 09/26/21 09/27/21 09/27/21 Range/Units 20:14 06:11 11:50 POC Glucose (mg/dL) 129 H 116 H 112 H (75-99) mg/dL
--- NOTE | 2021-09-27 13:37 | P.PN ---
Progress Note - Text Progress Note Date: 09/27/21 Presenting complaint: Dizziness Hospital course Patient is a 66-year-old male with a known history of coronary artery disease status post CABG, hypertension, hyperlipidemia, history of [place] and COPD, currently ongoing nicotine addiction presents to ER with the complaints of dizziness. Patient states that he woke up in the morning and felt dizzy. He tried to bend over to some work and felt very dizzy and weak upon standing up straight. Patient was brought to hospital by his family member. Denies any complaints of chest pain or shortness breath. No nausea vomiting abdominal pain or diarrhea. Denies any recent illnesses. No sick contacts at home. No recent travel. No prior history of atrial flutter or pulmonary embolism. EKG showed atrial flutter with rapid ventricular rate. Chest x-ray showed COPD. started on IV heparin and IV Cardizem drip. September 27: I resumed care of the patient today. Patient been having burst of atrial flutter with a rapid ventricular rate. Rate better controlled. Seen by cardiology. Plan is for LUKE and DC cardioversion tomorrow. Sitting up in bed. Otherwise comfortable. Active Medications Apixaban (Apixaban 5 Mg Tab) 5 mg PO BID [facility]; Protocol Last Admin: 09/27/21 08:24 Dose: 5 mg Documented by: Atorvastatin Calcium (Atorvastatin 40 Mg Tab) 40 mg PO HS [facility] Last Admin: 09/26/21 20:17 Dose: 40 mg Documented by: Bupropion HCl (Bupropion Xl 300 Mg Tab.Er.24h) 300 mg PO DAILY [facility] Last Admin: 09/27/21 08:24 Dose: 300 mg Documented by: Clopidogrel Bisulfate (Clopidogrel 75 Mg Tab) 75 mg PO DAILY [facility] Last Admin: 09/27/21 08:24 Dose: 75 mg Documented by: Finasteride (Finasteride 5 Mg Tab) 5 mg PO DAILY [facility] Last Admin: 09/27/21 08:24 Dose: 5 mg Documented by: Diltiazem HCl 125 mg/ Sodium (Chloride) 125 mls @ 10 mls/hr IV .[id number] [facility] Last Admin: 09/27/21 10:57 Dose: 10 mg/hr, 10 mls/hr Documented by: Insulin Aspart (Insulin Aspart (Novolog) 100 Unit/Ml Vial) 0 unit SQ ACHS [facility]; Protocol Last Admin: 09/27/21 12:23 Dose: Not Given Documented by: Metoprolol Tartrate (Metoprolol Tartrate 50 Mg Tab) 50 mg PO BID [facility] Last Admin: 09/27/21 08:24 Dose: 50 mg Documented by: Nitroglycerin (Nitroglycerin Sl Tabs 0.4 Mg Tab) 0.4 mg SUBLINGUAL Q5M PRN PRN Reason: Chest Pain Tamsulosin HCl (Tamsulosin 0.4 Mg Cap.Er.24h) 0.4 mg PO HS [facility] Last Admin: 09/26/21 20:18 Dose: 0.4 mg Documented by: On examination: VITAL SIGNS: 97.5, 138, 12, 117/85, 98% room air GENERAL APPEARANCE: Reclining bed, not in distress. HEENT: Normal external appearance of nose and ear. Oral cavity normal EYES: Pupils equal. Conjunctiva normal. NECK: JVD not raised. Mass not palpable. RESPIRATORY: Respiratory effort normal. Lungs clear to auscultation. CARDIOVASCULAR: Heart sounds irregular No edema. ABDOMEN: Soft. Liver and spleen not palpable. No tenderness. No mass palpable. PSYCHIATRY: Alert and oriented x3. Mood and affect normal. INVESTIGATIONS, reviewed in the clinical context: Sodium 137 potassium 4.2 creatinine 0.82 LDL 62.9 TSH 1.3 2-D echocardiogram: Ordered concentric LVH. EF 50-55%. EKG tracing atrial flutter. Assessment and plan: -Persistent atrial flutter with episodes of rapid ventricular rate.: Uncontrolled IV Cardizem, eliquis. Plan for DC cardioversion -Hyperlipidemia Lipitor 40 mg daily at bedtime -Essential hypertension Lopressor -BPH Proscar 5 mg a day. Flomax 0.4 mg daily at bedtime -Depression otherwise specified Wellbutrin XL 300 mg a day -CAD with a prior history of bypass in 2011 Lipitor, Lopressor -Chronic nicotine dependence, cigarette smoker Nicotine patch Continue IV Cardizem, eliquis. Plan for LUKE and cardioversion tomorrow. Other medications to continue. Add nicotine patch.
[2021-09-27 16:26] LABS: Glucose,Whole Blood 121 mg/dL (75-99)
[2021-09-27] MEDS: TAMSULOSIN 0.4 MG CAP.ER.24H PO SCH (19:51)
[2021-09-27] MEDS: ATORVASTATIN 40 MG TAB PO SCH (19:51)
[2021-09-27 20:15] LABS: Glucose,Whole Blood 100 mg/dL (75-99)
[2021-09-27] MEDS: NICOTINE 14MG/24HR PATCH TRANSDERM SCH (20:55)
[2021-09-28 06:21] LABS: Glucose,Whole Blood 123 mg/dL (75-99)
[2021-09-28] MEDS: INSULIN ASPART (NovoLOG) 100 UNIT/ML VIAL SQ SCH ×4 (06:47→21:56)
--- NOTE | 2021-09-28 06:53 | P.PN ---
Subjective Progress Note Date: 09/27/21 Patient is a 66-year-old male with a known history of coronary artery disease status post CABG, hypertension, hyperlipidemia, history of [place] and COPD, currently ongoing nicotine addiction presents to ER with the complaints of dizziness. Patient states that he woke up in the morning and felt dizzy. He tr ied to bend over to some work and felt very dizzy and weak upon standing up straight. Patient was brought to hospital by his family member. Denies any complaints of chest pain or shortness breath. No nausea vomiting abdominal pain or diarrhea. Denies any recent illnesses. No sick contacts at home. No recent travel. No prior history of atrial flutter or pulmonary embolism. EKG showed atrial flutter with rapid ventricular rate. Chest x-ray showed COPD. Laboratory data showed WBC 8.6 hemoglobin 15.1 and platelets 261 D-dimer level is 0.46 Sodium 140 potassium 4.4 chloride 108 bicarb is 28 BUN 18 creatinine 0.79, magnesium 2.0 Troponin x3 - and liver enzymes are not elevated. 09/26/2021 Patient is seen in follow up this morning and being closely monitored by cardiology. Patient being transitioned off IV heparin and cardizem and being started on oral medications. Patient denies chest pain or palpitations. Patient is afebrile. Patient denies shortness of breath. Patient tolerating diet. Patient denies any further dizziness. Family at the bedside. 09/27/2021 Patient is evaluated today and currently walking the halls. Repeat ecg ordered as patients heart rate is currently in the 130's and persistent. Cardiology following and has been recently adjusting cardiac medications. Patient denies chest pain or palpitations. Patient denies shortness of breath or dizziness, or lightheadedness when ambulating. Patient tolerating diet and no reports of nausea or vomiting noted. Patient is asking when he is able to go home. Review of systems: Constitutional: No reports of fatigue, fever, or chills Cardiovascular: No reports of chest pain or palpitations, reports dizziness resolved Respiratory: No reports of shortness of breath or cough GI: no reports of nausea, no reports of of vomiting, no reports of diarrhea : No reports of dysuria or retention Neurovascular: no reports of generalized weakness All medications have been reviewed Active Medications Apixaban (Apixaban 5 Mg Tab) 5 mg PO BID [facility]; Protocol Last Admin: 09/27/21 19:51 Dose: 5 mg Documented by: Atorvastatin Calcium (Atorvastatin 40 Mg Tab) 40 mg PO [facility] Last Admin: 09/27/21 19:51 Dose: 40 mg Documented by: Bupropion HCl (Bupropion Xl 300 Mg Tab.Er.24h) 300 mg PO DAILY [facility] Last Admin: 09/27/21 08:24 Dose: 300 mg Documented by: Clopidogrel Bisulfate (Clopidogrel 75 Mg Tab) 75 mg PO DAILY [facility] Last Admin: 09/27/21 08:24 Dose: 75 mg Documented by: Finasteride (Finasteride 5 Mg Tab) 5 mg PO DAILY [facility] Last Admin: 09/27/21 08:24 Dose: 5 mg Documented by: Diltiazem HCl 125 mg/ Sodium (Chloride) 125 mls @ 10 mls/hr IV .[id number] [facility] Last Admin: 09/27/21 10:57 Dose: 10 mg/hr, 10 mls/hr Documented by: Insulin Aspart (Insulin Aspart (Novolog) 100 Unit/Ml Vial) 0 unit SQ [facility]; Protocol Last Admin: 09/28/21 06:47 Dose: Not Given Documented by: Metoprolol Tartrate (Metoprolol Tartrate 50 Mg Tab) 50 mg PO BID [facility] Last Admin: 09/27/21 19:51 Dose: 50 mg Documented by: Nicotine (Nicotine 14mg/24hr Patch) 1 patch TRANSDERM DAILY [facility] Last Admin: 09/27/21 20:55 Dose: Not Given Documented by: Nitroglycerin (Nitroglycerin Sl Tabs 0.4 Mg Tab) 0.4 mg SUBLINGUAL Q5M PRN PRN Reason: Chest Pain Tamsulosin HCl (Tamsulosin 0.4 Mg Cap.Er.24h) 0.4 mg PO [facility] Last Admin: 09/27/21 19:51 Dose: 0.4 mg Documented by: PHYSICAL EXAMINATION: GENERAL: The patient is alert and oriented x4, Well developed, well nourished. HEENT: Pupils are round and equally reacting to light. EOMI. no scleral icterus. No conjunctival pallor. Normocephalic, atraumatic. No pharyngeal erythema. No thyromegaly. CARDIOVASCULAR: S1 and S2 muffled PULMONARY: diminished breath sounds bilaterally with no wheezing or rhonchi noted. ABDOMEN: soft. Nontender on exam. non-distended, normoactive bowel sounds. No palpable organomegaly. MUSCULOSKELETAL: No joint swelling or deformity. EXTREMITIES: No cyanosis, clubbing, or edema noted NEUROLOGICAL: Gross neurological examination did not reveal any focal deficits. SKIN: No rashes. Assessment: New onset atrial flutter with rapid ventilator rate Dizziness due to above, resolved Coronary artery disease history of CABG Abdominal aortic aneurysm 5.6 x 5.1 vascular CTA abdomen on 08/10/2019 COPD History of NM Hypertension Hyperlipidemia Currently some day smoker DVT prophylaxis transitioned to eliquis Plan: Recommend to continue with current medications and continue with cardiology following closely Patient being started back on IV cardizem for uncontrolled afib/flutter with heart rate in the 130's currently Repeat ecg shows atrial flutter Continue Eliquis Cardiology following and ordered LUKE, NPO at midnight Strongly encouraged patient to follow up with his sinter press operator once discharged Encouraged smoking cessation Guarded prognosis The impression and plan of care has been dictated by Beth Posadas, nurse practitioner as directed. Dr. Lyndsay MD I have performed a history and examination and MDM of this patient, discussed the same with the dictator, and agree with the dictator's assessment and plan as written ,documented as a scribe. Based on total visit time, I have performed more than 50% of the visit. Objective - Vital Signs Vital signs: Vital Signs Temp 97.5 F L 09/27/21 08:00 Pulse 138 H 09/27/21 08:00 Resp 12 09/27/21 08:00 BP 117/85 09/27/21 08:00 Pulse Ox 98 09/27/21 08:00 Intake & Output 09/26/21 09/27/21 09/27/21 18:59 06:59 18:59 Intake Total 1999 118 Balance 1999 118 Intake: Oral 1999 118 Other: Voiding Method Toilet Toilet Urinal Urinal # Voids 3 1 - Labs CBC & Chem 7: 09/25/21 12:01 09/26/21 08:30 Labs: Abnormal Lab Results - Last 24 Hours (Table) 09/26/21 09/27/21 Range/Units 20:14 06:11 POC Glucose (mg/dL) 129 H 116 H (75-99) mg/dL
[2021-09-28] MEDS: FINASTERIDE 5 MG TAB PO SCH (08:32)
[2021-09-28] MEDS: CLOPIDOGREL 75 MG TAB PO SCH (08:32)
[2021-09-28] MEDS: NICOTINE 14MG/24HR PATCH TRANSDERM SCH ×2 (08:33→09:43)
[2021-09-28] MEDS: APIXABAN 5 MG TAB PO SCH ×2 (08:33→20:21)
[2021-09-28] MEDS: buPROPion XL 300 MG TAB.ER.24H PO SCH (08:33)
[2021-09-28] MEDS: METOPROLOL TARTRATE 50 MG TAB PO SCH ×2 (08:33→20:20)
[2021-09-28 08:37] LABS: Basophils # (A) 0.1 k/uL (0-0.2); Basophils % (A) 1 %; Eosinophils # (A) 0.2 k/uL (0-0.7); Eosinophils % (A) 2 %; HCT 51.4 % (39.0-53.0); Hypochromasia Slight; Lymphocytes # (A) 1.9 k/uL (1.0-4.8); Lymphocytes % (A) 19 %; MCH 30.2 pg (25.0-35.0); MCHC 31.2 g/dL (31.0-37.0); Mean Platelet Volume 8.5; Monocytes # (A) 0.6 k/uL (0-1.0); Monocytes % (A) 6 %; Neutrophils # (A) 7.2 k/uL (1.3-7.7); Neutrophils % (A) 70 %; Platelet Count 265 k/uL (150-450); RDW 14.2 % (11.5-15.5); WBC 10.3 k/uL (3.8-10.6)
[2021-09-28 08:38] LABS: African American GFR (CKD) >90 (>60 ml/min/1.73 sqM); Anion Gap 1 mmol/L; Blood Urea Nitrogen 18 mg/dL (9-20); Calcium 9.5 mg/dL (8.4-10.2); Carbon Dioxide 31 mmol/L (22-30); Chloride 105 mmol/L (98-107); Glucose 102 mg/dL (74-99); Non-African American GFR(CKD) 78 (>60 ml/min/1.73 sqM); Sodium 137 mmol/L (137-145)
[2021-09-28] MEDS ORDERED: LACTATED RINGERS 1,000 ML IV ONE (09:50)
[2021-09-28] MEDS ORDERED: PROPOFOL 10 MG/ML 20 ML VIAL IV ONE (10:04)
[2021-09-28] MEDS ORDERED: LIDOCAINE 1% INJ 10MG/ML (20 ML MDV) ONE (10:04)
[2021-09-28] MEDS ORDERED: BENZOCAINE SPRAY 1 CAN MUCOUS MEM ONE (10:10)
--- NOTE | 2021-09-28 11:00 | P.PCN ---
Date of Procedure: 09/28/21 Operative Findings: TRANSESOPHAGEAL ECHOCARDIOGRAM APRON OPERATOR: TRI JORGE MD, RPVI INDICATION: Atrial fibrillation. The patient is scheduled to undergo cardioversion. The LUKE is to rule out any intracardiac thrombus SEDATION: Conscious sedation COMPLICATION: None LEVEL OF SEDATION The procedure was performed using propofol with CENTRAL SUPPLY AIDE in the room. PROCEDURE DESCRIPTION: After obtaining an informed consent, the patient was brought to recovery. Pulse oximetry and heart monitors were attached to the patient. The patient throat was sprayed using lidocaine. The patient was turned into left lateral position. After that a bite guard was placed. After an appropriate propofol was given, the transesophageal echocardiogram was advanced through a bite guard into the mid esophagus. A 2-D echocardiogram images, color Doppler images, continuous wave images, pulse-wave images, of various cardiac structure were performed. After that the transesophageal echocardiogram probe was advanced into the stomach and fixed to obtain transgastric view was. The probe was brought into the mid esophagus. Inter-atrial septum was interrogated using 2D images as well as color Doppler. No agitated saline was done. After that transesophageal echocardiogram was withdrawn out and upon withdrawing the descending thoracic aorta all the way up to the arch was evaluated. FINDING: The left ventricle appeared to be dilated. The left ventricle systolic function appeared to be about 40% with global hypokinesia. The right ventricle appeared to be dilated. The left atrium appeared to be also dilated. The left atrial appendage appeared to be free from any thrombus. Intra-atrial septum appears to be hyperdynamic without clear-cut evidence of shunting. The aortic valve is trileaflet valve without stenosis or regurgitation. The mitral valve seems to be mildly thickened with [id number] mitral regurgitation. There is [id number] tricuspid regurgitation seen. No evidence of pericardial effusion CONCLUSION: 1. No evidence of left atrial appendage thrombus or any intracardiac thrombus 2. Severely dilated left atrium 3. Impaired LV function with EF around 40% with global hypokinesia 4. Dilated right ventricle with normal function 5. [id number] mitral regurgitation 6. [id number] tricuspid regurgitation
--- NOTE | 2021-09-28 11:02 | P.PCN ---
Date of Procedure: 09/28/21 Operative Findings: Cardioversion Performing physician Eugene Verma M.D. Procedure performed Successful cardioversion of atrial flutter using 200 J and first attempt Indication Atrial flutter refractory to medical treatment Complication None Level of sedation The procedure was performed under deep sedation using propofol Procedure description After transesophageal echocardiogram was performed and intracardiac thrombus was ruled out we pursue with cardioversion. The patient cardioverted from atrial fibrillation/atrial flutter to normal sinus mechanism using 200 J and first attempt Conclusion Successful cardioversion of atrial flutter Postprocedure management Continue the current medical regimen Continue anticoagulation Follow-up with the patient
[2021-09-28 11:27] LABS: Glucose,Whole Blood 103 mg/dL (75-99)
--- NOTE | 2021-09-28 11:34 | P.PN ---
Subjective This is a 66 year old male with past medical history of [place], coronary artery disease status post 3vessel CABG 11 years ago, hypertension, hyperlipidemia,and COPD, currently ongoing nicotine dependence, type 2 diabetes, abdominal aortic aneurysm s/p repair on 08/24/2019. He follows with Dr. Vic Krishna. We have been consulted for atrial fibrillation with RVR. Patient presents to the emergency department with acute onset of lightheadedness and generalized weakness. He states he woke up yesterday out of bed and states he "Didnt feel right". He was lightheaded and felt weak. His son is an EMT, he checked his blood pressure and heart rate, did an EKG and noted his heart rate to be tachycardic and irregular, brought to ER for further evaluation. He denies chest pain, shortness of breath, dizziness, syncope or near syncope. Denies symptoms of orthopnea and PND. He denies any further stent placements after CABG. Denies history of stroke. EKG reveals atrial flutter with RR HR 127 09/28/2021 Patient seen and examined at bedside, distress. He denies any chest pain, shortness of breath lightheadedness or dizziness. Occasionally feels palpitations. Patient continues to be in A. fib flutter but his heart rates have improved 60s/80s, his Cardizem drip has been stopped. Echocardiogram revealed an EF of 5055%, moderate concentric LVH, mild mitral regurgitation, mild tricuspid regurgitation. He's currently maintained on Eliquis 5 mg twice a day, atorvastatin 40 mg nightly, Plavix 75 mg daily, metoprolol tartrate 50 mg BID PHYSICAL EXAMINATION 128/75, heart rate 78, afebrile CONSTITUTIONAL: No apparent distress. HEENT: No JVD. No carotid bruit. CHEST EXAMINATION: Lungs are clear to auscultation. No chest wall tenderness is noted on palpation or with deep breathing. HEART EXAMINATION: Irregular rate and rhythm. S1, S2 heard. systolic murmur noted, No gallops or rub. ABDOMEN: Soft, nontender. Positive bowel sounds. EXTREMITIES: 2+ peripheral pulses, no lower extremity edema and no calf tenderness. SKIN: warm, dry NEUROLOGIC EXAMINATION: Patient is awake, alert and oriented x3. ASSESSMENT Typical atrial flutter with rapid ventricular response -[id number] score 4 Coronary artery disease status post 3vessel CABG 11 years ago History of hypertension Type 2 Diabetes Hyperlipidemia COPD Nicotine dependence Abdominal aortic aneurysm s/p repair on 08/24/2019 PLAN Plan LUKE Cardioversion with Dr. Verma today Continue Eliqugiovana, per case management this medication is covered with $42 copay Continue cardiac telemetry Further recommendations based on clinical course On discharge patient to follow-up with his iron molder helper Dr. Krishna. Hopefully discharge in 24 hours Nurse practitioner note has been reviewed by physician. Signing provider agrees with the documented findings, assessment, and plan of care. Objective - Vital Signs Vital signs: Vital Signs Temp 98 F 09/28/21 09:49 Pulse 54 L 09/28/21 11:04 Resp 16 09/28/21 11:04 BP 98/62 09/28/21 11:04 Pulse Ox 97 09/28/21 11:04 Intake & Output 09/27/21 09/28/21 09/28/21 18:59 06:59 18:59 Intake Total 354 1080 975 Output Total 175 Balance 179 1080 975 Weight 72.575 kg Intake: IV 850 Intake, IV Titration 125 Amount Diltiazem 125 mg In 125 Sodium Chloride 0.9% 100 ml @ 10 MG/HR 10 mls/hr IV .[id number] [facility] Rx#: [id number] Oral 354 1080 Output: Urine 175 Other: Voiding Method Toilet Toilet Urinal Urinal - Labs CBC & Chem 7: 09/28/21 06:32 09/28/21 06:32 Labs: Abnormal Lab Results - Last 24 Hours (Table) 09/27/21 09/27/21 09/27/21 Range/Units 11:50 16:25 20:13 Carbon Dioxide (22-30) mmol/L Glucose (74-99) mg/dL POC Glucose (mg/dL) 112 H 121 H 100 H (75-99) mg/dL 09/28/21 09/28/21 09/28/21 Range/Units 06:19 06:32 11:25 Carbon Dioxide 31 H (22-30) mmol/L Glucose 102 H (74-99) mg/dL POC Glucose (mg/dL) 123 H 103 H (75-99) mg/dL
[2021-09-28] MEDS: DILTIAZEM 125 MG in SODIUM CHLORIDE 0.9% 100 ML IV SCH (14:27)
--- NOTE | 2021-09-28 16:25 | P.PN ---
Progress Note - Text Progress Note Date: 09/28/21 Presenting complaint: Dizziness Hospital course Patient is a 66-year-old male with a known history of coronary artery disease status post CABG, hypertension, hyperlipidemia, history of [place] and COPD, currently ongoing nicotine addiction presents to ER with the complaints of dizziness. Patient states that he woke up in the morning and felt dizzy. He tried to bend over to some work and felt very dizzy and weak upon standing up straight. Patient was brought to hospital by his family member. Denies any complaints of chest pain or shortness breath. No nausea vomiting abdominal pain or diarrhea. Denies any recent illnesses. No sick contacts at home. No recent travel. No prior history of atrial flutter or pulmonary embolism. EKG showed atrial flutter with rapid ventricular rate. Chest x-ray showed COPD. started on IV heparin and IV Cardizem drip. September 27: I resumed care of the patient today. Patient been having burst of atrial flutter with a rapid ventricular rate. Rate better controlled. Seen by cardiology. Plan is for LUKE and DC cardioversion tomorrow. Sitting up in bed. Otherwise comfortable. September 28: Patient successfully cardioverted this morning. Sinus rhythm. Breathing stable. No chest pain. Have encouraged to ambulate. On eliquis. Active Medications Apixaban (Apixaban 5 Mg Tab) 5 mg PO BID [facility]; Protocol Last Admin: 09/28/21 08:33 Dose: 5 mg Documented by: Atorvastatin Calcium (Atorvastatin 40 Mg Tab) 40 mg PO HS [facility] Last Admin: 09/27/21 19:51 Dose: 40 mg Documented by: Bupropion HCl (Bupropion Xl 300 Mg Tab.Er.24h) 300 mg PO DAILY [facility] Last Admin: 09/28/21 08:33 Dose: 300 mg Documented by: Clopidogrel Bisulfate (Clopidogrel 75 Mg Tab) 75 mg PO DAILY [facility] Last Admin: 09/28/21 08:32 Dose: 75 mg Documented by: Finasteride (Finasteride 5 Mg Tab) 5 mg PO DAILY [facility] Last Admin: 09/28/21 08:32 Dose: 5 mg Documented by: Insulin Aspart (Insulin Aspart (Novolog) 100 Unit/Ml Vial) 0 unit SQ [facility]; Protocol Last Admin: 09/28/21 14:27 Dose: Not Given Documented by: Metoprolol Tartrate (Metoprolol Tartrate 50 Mg Tab) 50 mg PO BID [facility] Last Admin: 09/28/21 08:33 Dose: 50 mg Documented by: Nicotine (Nicotine 14mg/24hr Patch) 1 patch TRANSDERM DAILY [facility] Last Admin: 09/28/21 09:43 Dose: Not Given Documented by: Nitroglycerin (Nitroglycerin Sl Tabs 0.4 Mg Tab) 0.4 mg SUBLINGUAL Q5M PRN PRN Reason: Chest Pain Tamsulosin HCl (Tamsulosin 0.4 Mg Cap.Er.24h) 0.4 mg PO HS [facility] Last Admin: 09/27/21 19:51 Dose: 0.4 mg Documented by: On examination: VITAL SIGNS: 98.1, 49, 17, 111/59, 95% room air GENERAL APPEARANCE: Reclining bed, comfortable HEENT: Normal external appearance of nose and ear. Oral cavity normal EYES: Pupils equal. Conjunctiva normal. NECK: JVD not raised. Mass not palpable. RESPIRATORY: Respiratory effort normal. Lungs clear to auscultation. CARDIOVASCULAR: Heart sounds irregular No edema. ABDOMEN: Soft. Liver and spleen not palpable. No tenderness. No mass palpable. PSYCHIATRY: Alert and oriented x3. Mood and affect normal. INVESTIGATIONS, reviewed in the clinical context: September 28: White count 10.3 hemoglobin 16 platelets 265 potassium 5 creatinine 0.99 Sodium 137 potassium 4.2 creatinine 0.82 LDL 62.9 TSH 1.3 2-D echocardiogram: Ordered concentric LVH. EF 50-55%. EKG tracing atrial flutter. Assessment and plan: -Persistent atrial flutter with episodes of rapid ventricular rate.: sinus rhythm IV horacio Barnhart. Successful cardioversion September 28. -Hyperlipidemia Lipitor 40 mg daily at bedtime -Essential hypertension Lopressor -BPH Proscar 5 mg a day. Flomax 0.4 mg daily at bedtime -Depression otherwise specified Wellbutrin XL 300 mg a day -CAD with a prior history of bypass in 2011 Lipitor, Lopressor -Chronic nicotine dependence, cigarette smoker Nicotine patch Successful cardioversion. Continue current medications. Heart rate controlled. Increase activity. Hopefully home 24 hours.
[2021-09-28 16:35] LABS: Glucose,Whole Blood 119 mg/dL (75-99)
[2021-09-28 20:20] LABS: Glucose,Whole Blood 105 mg/dL (75-99)
[2021-09-28] MEDS: TAMSULOSIN 0.4 MG CAP.ER.24H PO SCH (20:20)
[2021-09-28] MEDS: ATORVASTATIN 40 MG TAB PO SCH (20:21)
[2021-09-29 06:01] LABS: Glucose,Whole Blood 112 mg/dL (75-99)
[2021-09-29] MEDS: INSULIN ASPART (NovoLOG) 100 UNIT/ML VIAL SQ SCH ×2 (06:11→12:26)
[2021-09-29] MEDS: NICOTINE 14MG/24HR PATCH TRANSDERM SCH (08:13)
[2021-09-29 08:55] VITALS: TEMP 98.3
[2021-09-29] MEDS: FINASTERIDE 5 MG TAB PO SCH (08:55)
[2021-09-29] MEDS: APIXABAN 5 MG TAB PO SCH (08:55)
[2021-09-29] MEDS: CLOPIDOGREL 75 MG TAB PO SCH (08:55)
[2021-09-29] MEDS: buPROPion XL 300 MG TAB.ER.24H PO SCH (08:55)
[2021-09-29] MEDS: METOPROLOL TARTRATE 50 MG TAB PO SCH (08:55)
[2021-09-29 11:19] VITALS: BP 113/63
[2021-09-29 11:47] LABS: Glucose,Whole Blood 162 mg/dL (75-99)
--- NOTE | 2021-09-29 15:54 | P.PN ---
Subjective This is a 66 year old male with past medical history of ND, coronary artery disease status post 3vessel CABG 11 years ago, hypertension, hyperlipidemia,and COPD, currently ongoing nicotine dependence, type 2 diabetes, abdominal aortic aneurysm s/p repair on 08/24/2019. He follows with Dr. Vic Krishna. We have been consulted for atrial fibrillation with RVR. Patient presents to the emergency department with acute onset of lightheadedness and generalized weakness. He states he woke up yesterday out of bed and states he "Didnt feel right". He was lightheaded and felt weak. His son is an EMT, he checked his blood pressure and heart rate, did an EKG and noted his heart rate to be tachycardic and irregular, brought to ER for further evaluation. He denies chest pain, shortness of breath, dizziness, syncope or near syncope. Denies symptoms of orthopnea and PND. He denies any further stent placements after CABG. Denies history of stroke. EKG reveals atrial flutter with RR HR 127 09/28/2021 Patient seen and examined at bedside, distress. He denies any chest pain, shortness of breath lightheadedness or dizziness. Occasionally feels palpitations. Patient continues to be in A. fib flutter but his heart rates have improved 60s/80s, his Cardizem drip has been stopped. Echocardiogram revealed an EF of 5055%, moderate concentric LVH, mild mitral regurgitation, mild tricuspid regurgitation. He's currently maintained on Eliquis 5 mg twice a day, atorvastatin 40 mg nightly, Plavix 75 mg daily, metoprolol tartrate 50 mg BID 09/29 Seen and examined. Patient was cardioverted yesterday without incident. Remains in sinus rhythm. He states he feels much better since that time. No shortness breath. No chest pain. PHYSICAL EXAMINATION Vitals reviewed CONSTITUTIONAL: No apparent distress. HEENT: No JVD. No carotid bruit. CHEST EXAMINATION: Lungs are clear to auscultation. No chest wall tenderness is noted on palpation or with deep breathing. HEART EXAMINATION: Regular rate and rhythm. S1, S2 heard. systolic murmur noted, No gallops or rub. ABDOMEN: Soft, nontender. Positive bowel sounds. EXTREMITIES: 2+ peripheral pulses, no lower extremity edema and no calf tenderness. SKIN: warm, dry NEUROLOGIC EXAMINATION: Patient is awake, alert and oriented x3. ASSESSMENT Typical atrial flutter with rapid ventricular response -[id number] score 4, s/p cardioversion 09/28 Coronary artery disease status post 3vessel CABG 11 years ago History of hypertension Type 2 Diabetes Hyperlipidemia COPD Nicotine dependence Abdominal aortic aneurysm s/p repair on 08/24/2019 PLAN Stable for discharge home today on current medical regimen. Follow-up in office in 1 week. Continue anticoagulation and rate controlling medications. Evaluate outpatient for possible ablation. Objective - Vital Signs Vital signs: Vital Signs Temp 98.3 F 09/29/21 08:00 Pulse 55 L 09/29/21 11:18 Resp 16 09/29/21 11:18 BP 113/63 09/29/21 11:18 Pulse Ox 97 09/29/21 11:18 Intake & Output 09/28/21 09/29/21 09/29/21 18:59 06:59 18:59 Intake Total 1523 Balance 1523 Weight 72.575 kg Intake: IV 800 Intake, IV Titration 125 Amount Diltiazem 125 mg In 125 Sodium Chloride 0.9% 100 ml @ 10 MG/HR 10 mls/hr IV .[id number] [facility] Rx#: [id number] Oral 598 Other: Voiding Method Toilet Urinal # Voids 2 2 - Labs CBC & Chem 7: 09/28/21 06:32 09/28/21 06:32 Labs: Abnormal Lab Results - Last 24 Hours (Table) 09/28/21 09/28/21 09/29/21 Range/Units 16:33 20:19 06:00 POC Glucose (mg/dL) 119 H 105 H 112 H (75-99) mg/dL 09/29/21 Range/Units 11:45 POC Glucose (mg/dL) 162 H (75-99) mg/dL
--- NOTE | 2021-09-29 17:03 | P.DS ---
Providers Date of admission: 09/25/21 13:34 Expected date of discharge: 09/29/21 Attending physician: Martinez Dinh Consults: 09/25/21 13:20 Consult Physician Urgent Consulting Provider: [facility] Consult Reason/Comments: Atrial flutter with rapid ventricular response Do you want consulting provider notified?: Yes Primary care physician: Td Braggmley [facility] Course: Presenting complaint: Dizziness Hospital course Patient is a 66-year-old male with a known history of coronary artery disease status post CABG, hypertension, hyperlipidemia, history of [place] and COPD, currently ongoing nicotine addiction presents to ER with the complaints of dizziness. Patient states that he woke up in the morning and felt dizzy. He tried to bend over to some work and felt very dizzy and weak upon standing up straight. Patient was brought to hospital by his family member. Denies any complaints of chest pain or shortness breath. No nausea vomiting abdominal pain or diarrhea. Denies any recent illnesses. No sick contacts at home. No recent travel. No prior history of atrial flutter or pulmonary embolism. EKG showed atrial flutter with rapid ventricular rate. Chest x-ray showed COPD. started on IV heparin and IV Cardizem drip. September 27: I resumed care of the patient today. Patient been having burst of atrial flutter with a rapid ventricular rate. Rate better controlled. Seen by cardiology. Plan is for LUKE and DC cardioversion tomorrow. Sitting up in bed. Otherwise comfortable. September 28: Patient successfully cardioverted this morning. Sinus rhythm. Breathing stable. No chest pain. Have encouraged to ambulate. On eliquis. September 29: Doing well. Remains in sinus rhythm. No cardiac symptoms. Up and about. Discharged on eliquis. On examination: VITAL SIGNS: 98.3, 66, 16, 136/71, 98% room air GENERAL APPEARANCE: Sitting up, comfortable HEENT: Normal external appearance of nose and ear. Oral cavity normal EYES: Pupils equal. Conjunctiva normal. NECK: JVD not raised. Mass not palpable. RESPIRATORY: Respiratory effort normal. Lungs clear to auscultation. CARDIOVASCULAR: Heart sounds irregular No edema. ABDOMEN: Soft. Liver and spleen not palpable. No tenderness. No mass palpable. PSYCHIATRY: Alert and oriented x3. Mood and affect normal. INVESTIGATIONS, reviewed in the clinical context: September 28: White count 10.3 hemoglobin 16 platelets 265 potassium 5 creatinine 0.99 Sodium 137 potassium 4.2 creatinine 0.82 LDL 62.9 TSH 1.3 2-D echocardiogram: Ordered concentric LVH. EF 50-55%. EKG tracing atrial flutter. Assessment and plan: -Persistent atrial flutter with episodes of rapid ventricular rate.: sinus rhythm Lopressor 50 mg twice a day, eliquis. Successful cardioversion September 28. -Hyperlipidemia Lipitor 40 mg daily at bedtime -Essential hypertension Lopressor 50 mg twice a day. -BPH Proscar 5 mg a day. Flomax 0.4 mg daily at bedtime -Depression otherwise specified Wellbutrin XL 300 mg a day -CAD with a prior history of bypass in 2011 Lipitor, Lopressor -Chronic nicotine dependence, cigarette smoker Nicotine patch Disposition: Home Plan - Discharge Summary Discharge Rx Participant: Yes New Discharge Prescriptions: New Apixaban [Eliquis] 5 mg PO BID 30 Days #60 tab Nicotine 14Mg/24Hr Patch [Habitrol] 1 patch TRANSDERM DAILY #14 patch Metoprolol Tartrate [Lopressor] 50 mg PO BID #60 tab Continue buPROPion HCL [Wellbutrin XL] 300 mg PO DAILY Clopidogrel [Plavix] 75 mg PO DAILY Tamsulosin [Flomax] 0.4 mg PO HS Finasteride [Proscar] 5 mg PO DAILY metFORMIN HCL [Glucophage XR] 500 mg PO W/SUPPER Atorvastatin [Lipitor] 40 mg PO HS No Action Multivitamins, Thera [Multivitamin (formulary)] 1 tab PO DAILY Discharge Medication List Clopidogrel [Plavix] 75 mg PO DAILY 11/21/14 [History] buPROPion HCL [Wellbutrin XL] 300 mg PO DAILY 11/21/14 [History] Finasteride [Proscar] 5 mg PO DAILY 08/20/19 [History] Multivitamins, Thera [Multivitamin (formulary)] 1 tab PO DAILY 08/20/19 [History] Tamsulosin [Flomax] 0.4 mg PO HS 08/20/19 [History] Atorvastatin [Lipitor] 40 mg PO HS 09/25/21 [History] metFORMIN HCL [Glucophage XR] 500 mg PO W/SUPPER 09/25/21 [History] Apixaban [Eliquis] 5 mg PO BID 30 Days #60 tab 09/26/21 [Rx] Metoprolol Tartrate [Lopressor] 50 mg PO BID #60 tab 09/29/21 [Rx] Nicotine 14Mg/24Hr Patch [Habitrol] 1 patch TRANSDERM DAILY #14 patch 09/29/21 [Rx] Follow up Appointment(s)/Referral(s): Eugene Verma MD [STAFF PHYSICIAN] - 1 Week (if you choose to use cardiology assc. dr verma is the physcian who followed your case. please schedule appointment for within a week if you choose to schedule here. office closed for weekend. ) Td Ghosh MD [Primary Care Provider] - 1-2 days (office closed. schedule friday.) Lonnie Krishna DO [REFERRING] - 1 Week (prior cardiologists contact information if you choose to follow up with him. Follow up within a week. ) Patient Instructions/Handouts: Apixaban (By mouth), Atrial Flutter (ED) Activity/Diet/Wound Care/Special Instructions: monitor heart rate, count pulse/heart rate. Discharge Disposition: HOME SELF-CARE
[2021-09-29 17:06] VITALS: PULSE 50; RESP 17
--- NOTE | 2021-10-02 13:42 | CDI ---
Documentation Clarification Form Date: 10/02/21 From: Samantha Carpio Admit Date: 09/25/2021 01:34:00 PM Patient Name: Andi Acosta Visit Number: [id number] Discharge Date: 09/29/2021 04:34:00 PM ATTENTION: The Clinical Documentation Specialists (CDI) and [facility] Coding Staff appreciate your assistance in clarifying documentation. Please respond to the clarification below the line at the bottom and electronically sign. The CDI & [facility] Coding staff will review the response and follow-up if needed. Please note: Queries are made part of the Legal Health Record. If you have any questions, please contact the author of this message via ITS. Dr. Eugene Verma, Atrial Fibrillation with RVR is documented in your consult on 09/26. Additional clarification regarding the type of atrial fibrillation is requested. History/Risk Factors: S/P CABG, S/P AAA, HTN, HLD, BPH, CAD, S/P AL, SMOKER Clinical Indicators: Patient comes in today stating he felt weak and lightheaded this morning he has never had any history of A. fib or atrial flutter. Patient states he had no chest pain difficulty breathing shortness of breath. Patient denies any recent fever chills or cough per patient denies abdominal pain patient denies nausea vomiting diarrhea. Patient denies any back pain. Patient denies any headache patient denies numbness or focal weakness. EKG/telemetry: Atrial flutter with RR HR 127 Treatment: Heparin, Cardizem drip, LUKE w cardioversion Please clarify the type of atrial fibrillation, if known: [ ] Atrial fibrillation ruled out [ ] Chronic [ ] Permanent [ x] Paroxysmal [ ] Persistent [ ] Other, please specify [ ] Unable to determine MTDD
== END 2021-09-29 16:34 | disposition home or self-care (01) | DRG 310 ==
LOC: EC 11:40 → 3SCARD 13:34
PROVIDERS: ADMIT Hospitalist; ATTEND Hospitalist
PROC: B246ZZ4 Ultrasonography of Right and Left Heart, Transesophageal (ICD-10-PCS; 2021-09-28)
PROC: 5A2204Z Restoration of Cardiac Rhythm, Single (ICD-10-PCS; principal; 2021-09-28 12:00)
DX: I48.3 Typical atrial flutter (principal); Z95.1 Presence of aortocoronary bypass graft; E11.9 Type 2 diabetes mellitus without complications; J44.9 Chronic obstructive pulmonary disease, unspecified; I48.0 Paroxysmal atrial fibrillation; I10 Essential (primary) hypertension; E78.5 Hyperlipidemia, unspecified; I08.1 Rheumatic disorders of both mitral and tricuspid valves; I25.10 Atherosclerotic heart disease of native coronary artery without angina pectoris; I25.2 Old myocardial infarction; N40.0 Benign prostatic hyperplasia without lower urinary tract symptoms; F32.A Depression, unspecified; F17.210 Nicotine dependence, cigarettes, uncomplicated; Z71.6 Tobacco abuse counseling; Z79.02 Long term (current) use of antithrombotics/antiplatelets; Z79.84 Long term (current) use of oral hypoglycemic drugs; Z79.899 Other long term (current) drug therapy; Z87.19 Personal history of other diseases of the digestive system; Z86.79 Personal history of other diseases of the circulatory system; Z98.890 Other specified postprocedural states
CPT/HCPCS: 36415; 71046; 80048; 80053; 80061; 83735; 84443; 84484; 85025; 85379; 85610; 85730; 92960; 93005; 93306; 93312; 93320; 93325; 96365; 96366; 96368; 99285

== ENCOUNTER → 2022-11-23 | Outpatient (CLI) | payer MEDICARE ==
--- NOTE | 2022-11-24 12:43 | MR ---
EXAMINATION TYPE: MR Prostate wo/w con DATE OF EXAM: 11/23/2022 8:27 AM COMPARISON: CT 09/29/2019. CLINICAL INDICATION:Male, 67 years old with history of R97.20 elevated PSA; TECHNIQUE: Multi-planar, multi-sequence imaging of the pelvis is performed prior to and following the uncomplicated administration of bolus intravenous gadolinium. CONTRAST: 8.5 Gadavist Interpretive Criteria: PI-RADS v2.1 SERUM PSA: 7.3 on 10/29/2022. Unable to read the 04/20/2022 fax 6.2? SURGICAL PATHOLOGY: Unable to read document from biopsy it does appear negative. FINDINGS: Prostatic dimensions: 5.2 x 5.8 x 5.2 cm. Ellipsoid Volume:82.12 (PSA density=0.09 ng/mL/mL) CENTRAL GLAND (Central and Transition Zones/CZ+TZ): Multiple bilateral, heterogenous appearing hypertrophic stromal nodules, without suspicious lesion. M edian lobe hypertrophy with protrusion into the base of the bladder. (PI-RADS 2) PERIPHERAL ZONE (PZ): No evidence of masslike abnormality, or localized perfusional hypervascularity, to further suggest a focus of clinically significant prostate cancer. (PI-RADS 2) SEMINAL VESICLES (SV): Symmetric and unremarkable. PERIPROSTATIC TISSUES: Unremarkable. LYMPH NODES: No enlarged pelvic lymph node. REMAINING PELVIS: Bladder wall is within normal limits given distention. No abnormal free or organized intrapelvic fluid collection. No pathologic bowel dilation or mural thickening. Bilateral fat-containing inguinal hernias. Scattered colonic diverticula. OSSEOUS STRUCTURES: No suspicious osseous abnormality. IMPRESSION: 1. No specific features for high-risk prostate cancer. Maximum PI-RADS score: 2. 2. Substantial BPH, estimated gland volume 82.12 mL.
== END | disposition home or self-care (01) ==
LOC: RADMRIMAIN 07:16
PROVIDERS: ATTEND Urology
DX: N40.0 Benign prostatic hyperplasia without lower urinary tract symptoms (principal); R97.20 Elevated prostate specific antigen [PSA]
CPT/HCPCS: 72197; A9585

== ENCOUNTER → 2023-10-13 | Outpatient (CLI) | payer MEDICARE | END | disposition home or self-care (01) | LOC: LABWHC1 11:47 | PROVIDERS: ATTEND Urology | DX: R97.20 Elevated prostate specific antigen [PSA] (principal) | CPT/HCPCS: 36415; 84153 ==

== ENCOUNTER → 2023-10-24 | Outpatient (CLI) | payer MEDICARE ==
--- NOTE | 2023-10-24 10:19 | US ---
EXAMINATION TYPE: US venous doppler duplex LE LT DATE OF EXAM: 10/24/2023 9:54 AM COMPARISON: NONE CLINICAL INDICATION: Male, 68 years old with history of L03.90 CELLULITIS; injury to lateral left mary f in June SIDE PERFORMED: Left TECHNIQUE: The lower extremity deep venous system is examined utilizing real time linear array sonog alan with graded compression, doppler sonography and color-flow sonography. VESSELS IMAGED: Common Femoral Vein Deep Femoral Vein Greater Saphenous Vein * Femoral Vein Popliteal Vein Small Saphenous Vein * Proximal Calf Veins (* superficial vessels) Left Leg: Negative for DVT Lt GSV harvested, the LT SSV has an area of thrombus around a valve leaflet and is pertial compressib le. rouleaux flow noted throughout. All deep veins are compressible as visualized. Exam slightly limi josefina by shadowing from calcified arterial armenta/plaque IMPRESSION: Grayscale, color doppler, spectral doppler imaging performed of the deep veins of the lo wer extremities. There is normal flow, compressibility, vascular waveforms.
== END | disposition home or self-care (01) ==
LOC: RADUSWWP 09:20
PROVIDERS: ATTEND Pediatrics
DX: L03.90 Cellulitis, unspecified (principal)

== ENCOUNTER → 2024-10-14 | Outpatient (CLI) | payer MEDICARE ==
[2024-10-14 07:25] LABS: African American GFR (CKD) >90 (>60 ml/min/1.73 sqM); Blood Urea Nitrogen 7 mg/dL (9-20); Non-African American GFR(CKD) 87 (>60 ml/min/1.73 sqM)
--- NOTE | 2024-10-14 08:52 | CT ---
EXAMINATION TYPE: CT brain wo/w con DATE OF EXAM: 10/14/2024 7:55 AM COMPARISON: None. CLINICAL INDICATION: Male, 69 years old with history of confusion, R41.82 ALTERED MENTAL STATUS, UNSP ECIFIED TECHNIQUE: CT of the brain before and after administration of 100 mL Isovue 300 IV contrast. Coronal and sagittal reconstructions performed. CT DLP: 2163.20 mGycm, Automated exposure control for dose reduction was used. FINDINGS: There is no evidence of acute intracranial hemorrhage, acute ischemic changes, mass, mass-effect, or extra-axial fluid collection. There is no effacement of cerebral sulci or basal subarachnoid cister ns. There is mild ventriculomegaly probably due to central cerebral atrophy. There is no midline shift. Cannon-white matter distinction is preserved. Dominant left vertebral artery. 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 No enhancing intracranial lesions. Dural venous sinuses are patent. Trace mucosal thickening ethmoid air cells and maxillary sinuses. Mastoid air cells well pneumatized. Orbits and globes are intact. IMPRESSION: 1. Mild ventricular prominence probably due to central cerebral atrophy. No acute intracranial abnorm ality seen. No enhancing intracranial lesions. 2. Small caliber to the vertebral basilar system. Correlate for any chronic symptoms of vertebrobasil ar insufficiency. 3. Trace chronic maxillary and ethmoid sinus disease. [facility], , 10/14/2024 8:50 AM
== END | disposition home or self-care (01) ==
LOC: RADCTMAIN 06:45
PROVIDERS: ATTEND Pediatrics
DX: R41.82 Altered mental status, unspecified (principal); I11.9 Hypertensive heart disease without heart failure; J32.0 Chronic maxillary sinusitis; J34.89 Other specified disorders of nose and nasal sinuses
CPT/HCPCS: 82565; 84520; 70470; 36415; Q9967

== ENCOUNTER 2025-01-23 09:47 | Inpatient (IN) | payer MEDICARE ==
--- NOTE | 2025-01-23 10:02 | ED ---
General Adult HPI - General Chief complaint: GI Bleed Stated complaint: GI Bleed Time Seen by Provider: 01/23/25 09:55 Source: patient, EMS, RN notes reviewed, old records reviewed Mode of arrival: EMS Limitations: no limitations - History of Present Illness Initial comments: This is a 69-year-old male who presents to the emergency department with signi ficant dementia. Son came home and found him confused naked and with blood on the floor in a bucket in the garage. Patient is on Eliquis but he states he has not had a bowel movement yet there is stool all over his legs. Patient is very confused and not giving much further history other than he feels as though he cannot have a bowel movement. Patient denies any pain. Patient has difficulty breathing. EMS stated his blood pressure was always normal and they did give 800 cc of normal saline on the way in. No other history is available at this time son is not in the room at this time - Related Data Home Medications Medication Instructions Recorded Confirmed Clopidogrel [Plavix] 75 mg PO DAILY 11/21/14 09/25/21 buPROPion HCL [Wellbutrin XL] 300 mg PO DAILY 11/21/14 09/25/21 Finasteride [Proscar] 5 mg PO DAILY 08/20/19 09/25/21 Multivitamins, Thera [Multivitamin 1 tab PO DAILY 08/20/19 09/25/21 (formulary)] Tamsulosin [Flomax] 0.4 mg PO HS 08/20/19 09/25/21 Atorvastatin [Lipitor] 40 mg PO HS 09/25/21 09/25/21 metFORMIN HCL [Glucophage XR] 500 mg PO W/SUPPER 09/25/21 09/25/21 Previous Rx's Medication Instructions Recorded Apixaban [Eliquis] 5 mg PO BID 30 Days #60 tab 09/26/21 Metoprolol Tartrate [Lopressor] 50 mg PO BID #60 tab 09/29/21 Nicotine 14Mg/24Hr Patch [Habitrol] 1 patch TRANSDERM DAILY #14 patch 09/29/21 Allergies Allergy/AdvReac Type Severity Reaction Status Date / Time No Known Allergies Allergy Verified 01/23/25 09:53 Review of Systems ROS Statement: Those systems with pertinent positive or pertinent negative responses have been documented in the HPI. ROS Other: All systems not noted in ROS Statement are negative. Past Medical History Past Medical History: Coronary Artery Disease (CAD), COPD, Hyperlipidemia, Hypertension, Myocardial Infarction (MD), Prostate Disorder Additional Past Medical History / Comment(s): STATES "MILD COPD" (NO MEDS), ENLARGED PROSTATE., AAA Last Myocardial Infarction Date:: 2011 History of Any Multi-Drug Resistant Organisms: None Reported Past Surgical History: Coronary Bypass/CABG, Hernia Repair Additional Past Surgical History / Comment(s): TRIPLE CABG (2012), HERNIA (CHILD) Past Anesthesia/Blood Transfusion Reactions: No Reported Reaction Past Psychological History: Depression Smoking Status: Current some day smoker Past Alcohol Use History: None Reported Past Drug Use History: None Reported - Past Family History Mother Family Medical History: No Reported History General Exam - General Exam Comments Initial Comments: GENERAL: Patient is well-developed and well-nourished. Patient is nontoxic and well- hydrated and is in no acute distress. ENT: Neck is soft and supple. No significant lymphadenopathy is noted. Oropharynx is clear. Moist mucous membranes. Neck has full range of motion without el iciting any pain. EYES: The sclera were anicteric and conjunctiva were pink and moist. Extraocular movements were intact and pupils were equal round and reactive to light. Eyelids were unremarkable. PULMONARY: Unlabored respirations. Good breath sounds bilaterally. No audible rales rhonchi or wheezing was noted. CARDIOVASCULAR: There is a regular rate and rhythm without any murmurs gallops or rubs. ABDOMEN: Soft and nontender with normal bowel sounds. SKIN: Skin is clear with no lesions or rashes and otherwise unremarkable. NEUROLOGIC: Patient is alert and oriented x3. Cranial nerves II through XII are grossly intact. Motor and sensory are also intact. Normal speech, volume and content. Symmetrical smile. Cerebellar exam grossly intact. MUSCULOSKELETAL: Normal extremities with adequate strength and full range of motion. Patient has bloody stool all over his legs. LYMPHATICS: No significant lymphadenopathy is noted PSYCHIATRIC: Normal psychiatric evaluation. Limitations: no limitations Course Vital Signs 01/23/25 01/23/25 01/23/25 09:48 11:45 14:24 Temperature 98.9 F Pulse Rate 70 91 78 Respiratory 18 16 16 Rate Blood Pressure 130/73 122/71 121/72 O2 Sat by Pulse 96 93 L 96 Oximetry Procedures - Sepsis Sepsis Focused Exam #1 Time Sepsis Criteria Met: 15:00 (No source of infection was found) Sepsis Focused Exam Date: 01/23/25 Sepsis Focused Exam Time: 15:00 Sepsis Focused Exam Complete: Yes Vital Signs & RN Notes Reviewed: Yes Capillary Refill: < 2 Seconds: Fingers Peripheral Pulses: Normal: Radial (R) Skin Color: Normal for Patient Respiratory Exam: normal lung sounds Cardiovascular Exam: regular rate Medical Decision Making - Medical Decision Making EKG is interpreted by myself. EKG shows sinus rhythm at 63 bpm AR interval 154 QRS 149 QT interval is 416 QTc is 423. Patient's EKG shows right bundle branch block. No source of infection can be found. Patient was given antibiotics however. Patient was given the appropriate amount of fluid. Was pt. sent in by a medical professional or institution (TIFFANIE Kat, [employer]ATE [employer]CE OPERATOR, urgent care, hospital, or shelter...) When possible be specific @ -No Did you speak to anyone other than the patient for history (EMS, parent, family, police, friend...)? What history was obtained from this source @ -No Did you review nursing and triage notes (agree or disagree)? Why? @ -I reviewed and agree with nursing and triage notes Were old charts reviewed (outside hosp., previous admission, EMS record, old EKG, old radiological studies, urgent care reports/EKG's, shelter records)? Report findings @ -No old charts were reviewed Differential Diagnosis? @ -Differential GI Bleed: Esophageal varices, aortoenteric fistula, Amanda-Malhotra, gastritis, peptic ulcer disease, diverticulosis, inflammatory bowel disease, hemorrhoids, fissure, colitis, malignancy, Meckel's diverticulum, this is not meant to be an all- inclusive list. EKG interpreted by me (3pts min.). @ -As above X-rays interpreted by me (1pt min.). @ -None done CT interpreted by me (1pt min.). @ -CT scan shows colitis mild. U/S interpreted by me (1pt. min.). @ -None done What testing was considered but not performed or refused? (CT, X-rays, U/S, labs)? Why? @ -None What meds were considered but not given or refused? Why? @ -None Did you discuss the management of the patient with other professionals (professionals i.e. Dr., PA, PLATE FURNACE OPERATOR, lab, RT, psych nurse, social media editor, general milling superintendent, teacher, corrections officer, complex case manager)? Give summary @ -I spoke with the [facility] hospitalist agreed admit the patient admit the patient recommending her Was smoking cessation discussed for >3mins.? @ -No Was critical care preformed (if so, how long)? @ -35 minutes Were there social determinants of health that impacted care today? How? (Homelessness, low income, unemployed, alcoholism, drug addiction, transportation, low edu. Level, literacy, decrease access to med. care, residential, rehab)? @ -No Was there de-escalation of care discussed even if they declined (Discuss DNR or withdrawal of care, Hospice)? DNR status @ -No What co-morbidities impacted this encounter? (DM, HTN, Smoking, COPD, CAD, Cancer, CVA, ARF, Chemo, Hep., AIDS, mental health diagnosis, sleep apnea, morbid obesity)? @ -None Was patient admitted / discharged? Hospital course, mention meds given and route, prescriptions, significant lab abnormalities, going to OR and other pertinent info. @ -Patient was given 2 g Rocephin because the had an elevated lactic acid and white count. Patient's lactic acid was elevated to 5.3 but no source of infection was found however the patient was given Rocephin and Vanco prophylactically patient also was given 1-1/4 L of fluid in the emergency department and 1 L was given on the way in. Patient's troponin was also elevated. I spoke with the [facility] hospitalist agreed to admit the patient I admitted the patient recommending orders Undiagnosed new problem with uncertain prognosis? @ -No Drug Therapy requiring intensive monitoring for toxicity (Heparin, Nitro, Insulin, Cardizem)? @ -No Were any procedures done? @ -No Diagnosis/symptom? @ -GI bleed Acute, or Chronic, or Acute on Chronic? @ -Acute Uncomplicated (without systemic symptoms) or Complicated (systemic symptoms)? @ -Comp Side effects of treatment? @ -No Exacerbation, Progression, or Severe Exacerbation? @ -No Poses a threat to life or bodily function? How? (Chest pain, USA, MD, pneumonia, PE, COPD, DKA, ARF, appy, cholecystitis, CVA, Diverticulitis, Homicidal, Suicidal, threat to staff... and all critical care pts) @ -Yes this could lead to hypoxia secondary to anemia Diagnosis/symptom? @ -NSTEMI Acute, or Chronic, or Acute on Chronic? @ -Acute Uncomplicated (without systemic symptoms) or Complicated (systemic symptoms)? @ -Complicated Side effects of treatment? @ -None Exacerbation, Progression, or Severe Exacerbation] @ -No Poses a threat to life or bodily function? @ -Yes this can lead to poor cardiac output and endorgan dysfunction Diagnosis/symptom? @ -Renal insufficiency Acute, or Chronic, or Acute on Chronic? @ -Acute Uncomplicated (without systemic symptoms) or Complicated (systemic symptoms)? @ -Complicated Side effects of treatment? @ -None Exacerbation, Progression, or Severe Exacerbation] @ -No Poses a threat to life or bodily function? @ -No - Lab Data Result diagrams: 01/23/25 14:31 01/23/25 10:04 Lab Results 01/23/25 01/23/25 01/23/25 Range/Units 09:55 10:04 10:04 WBC 25.55 H (4.50-10.00) 10*3/uL RBC 3.44 L (4.40-5.60) 10*6/uL Hgb 10.8 L (13.0-17.0) g/dL Hct 33.5 L (39.6-50.0) % MCV 97.4 H (80.0-97.0) fL MCH 31.4 (27.0-32.0) pg MCHC 32.2 (32.0-37.0) g/dL Plt Count 287 (140-440) 10*3/uL MPV 9.9 (9.5-12.2) fL Immature Gran % (Auto) 1.2 % Neutrophils % 87.8 % Lymphocytes % 5.9 % Monocytes % 4.9 % Eosinophils % 0.0 % Basophils % 0.2 % Immature Gran # 0.30 H (0.00-0.04) 10*3/uL Neutrophils # 22.44 H (1.80-7.70) 10*3/uL Lymphocytes # 1.52 (0.90-5.00) 10*3/uL Monocytes # 1.24 H (0.20-1.00) 10*3/uL Eosinophils # 0.00 L (0.04-0.35) 10*3/uL Basophils # 0.05 (0.00-0.10) 10*3/uL PT 10.9 (10.0-12.5) sec INR 1.0 (<1.2) APTT 20.6 L (22.0-30.0) sec Sodium (137-145) mmol/L Potassium (3.5-5.1) mmol/L Chloride (98-107) mmol/L Carbon Dioxide (22-30) mmol/L Anion Gap mmol/L BUN (9-20) mg/dL Creatinine (0.66-1.25) mg/dL Est GFR (CKD-EPI)AfAm (>60 ml/min/1.73 sqM) Est GFR (CKD-EPI)NonAf (>60 ml/min/1.73 sqM) Glucose (74-99) mg/dL Lactic Ac Sepsis Rflx Plasma Lactic Acid Saw (0.7-2.0) mmol/L Calcium (8.4-10.2) mg/dL Magnesium (1.6-2.3) mg/dL Total Bilirubin (0.2-1.3) mg/dL AST (17-59) U/L ALT (4-49) U/L Alkaline Phosphatase (38-126) U/L Troponin I (0.000-0.034) ng/mL Total Protein (6.3-8.2) g/dL Albumin (3.5-5.0) g/dL Urine Color Urine Appearance (Clear) Urine pH (5.0-8.0) Ur Specific [place] (1.001-1.035) Urine Protein (Negative) Urine Glucose (UA) (Negative) Urine Ketones (Negative) Urine Blood (Negative) Urine Nitrite (Negative) Urine Bilirubin (Negative) Urine Urobilinogen (<2.0) mg/dL Ur Leukocyte Esterase (Negative) Urine RBC (0-5) /hpf Urine WBC (0-5) /hpf Hyaline Casts (0-2) /lpf Urine Mucus (None) /hpf Urine Yeast (Budding) (None) /hpf Blood Type A Negative Blood Type Recheck A Neg Bld Type Recheck Status No Antibody Screen NEGATIVE Spec Expiration Date 01/26/2025230301/23/25 01/23/25 01/23/25 Range/Units 10:04 10:04 10:04 WBC (4.50-10.00) 10*3/uL RBC (4.40-5.60) 10*6/uL Hgb (13.0-17.0) g/dL Hct (39.6-50.0) % MCV (80.0-97.0) fL MCH (27.0-32.0) pg MCHC (32.0-37.0) g/dL Plt Count (140-440) 10*3/uL MPV (9.5-12.2) fL Immature Gran % (Auto) % Neutrophils % % Lymphocytes % % Monocytes % % Eosinophils % % Basophils % % Immature Gran # (0.00-0.04) 10*3/uL Neutrophils # (1.80-7.70) 10*3/uL Lymphocytes # (0.90-5.00) 10*3/uL Monocytes # (0.20-1.00) 10*3/uL Eosinophils # (0.04-0.35) 10*3/uL Basophils # (0.00-0.10) 10*3/uL PT (10.0-12.5) sec INR (<1.2) APTT (22.0-30.0) sec Sodium 140 (137-145) mmol/L Potassium 5.2 H (3.5-5.1) mmol/L Chloride 108 H (98-107) mmol/L Carbon Dioxide 19 L (22-30) mmol/L Anion Gap 13 mmol/L BUN 29 H (9-20) mg/dL Creatinine 2.16 H (0.66-1.25) mg/dL Est GFR (CKD-EPI)AfAm 34 (>60 ml/min/1.73 sqM) Est GFR (CKD-EPI)NonAf 30 (>60 ml/min/1.73 sqM) Glucose 160 H (74-99) mg/dL Lactic Ac Sepsis Rflx Plasma Lactic Acid Saw 5.3 H* (0.7-2.0) mmol/L Calcium 9.5 (8.4-10.2) mg/dL Magnesium 2.0 (1.6-2.3) mg/dL Total Bilirubin 0.6 (0.2-1.3) mg/dL AST 28 (17-59) U/L ALT 31 (4-49) U/L Alkaline Phosphatase 58 (38-126) U/L Troponin I 0.482 H* (0.000-0.034) ng/mL Total Protein 5.7 L (6.3-8.2) g/dL Albumin 3.5 (3.5-5.0) g/dL Urine Color Urine Appearance (Clear) Urine pH (5.0-8.0) Ur Specific [place] (1.001-1.035) Urine Protein (Negative) Urine Glucose (UA) (Negative) Urine Ketones (Negative) Urine Blood (Negative) Urine Nitrite (Negative) Urine Bilirubin (Negative) Urine Urobilinogen (<2.0) mg/dL Ur Leukocyte Esterase (Negative) Urine RBC (0-5) /hpf Urine WBC (0-5) /hpf Hyaline Casts (0-2) /lpf Urine Mucus (None) /hpf Urine Yeast (Budding) (None) /hpf Blood Type Blood Type Recheck Bld Type Recheck Status Antibody Screen Spec Expiration Date 01/23/25 01/23/25 01/23/25 Range/Units 10:42 13:24 14:31 WBC (4.50-10.00) 10*3/uL RBC (4.40-5.60) 10*6/uL Hgb (13.0-17.0) g/dL Hct (39.6-50.0) % MCV (80.0-97.0) fL MCH (27.0-32.0) pg MCHC (32.0-37.0) g/dL Plt Count (140-440) 10*3/uL MPV (9.5-12.2) fL Immature Gran % (Auto) % Neutrophils % % Lymphocytes % % Monocytes % % Eosinophils % % Basophils % % Immature Gran # (0.00-0.04) 10*3/uL Neutrophils # (1.80-7.70) 10*3/uL Lymphocytes # (0.90-5.00) 10*3/uL Monocytes # (0.20-1.00) 10*3/uL Eosinophils # (0.04-0.35) 10*3/uL Basophils # (0.00-0.10) 10*3/uL PT (10.0-12.5) sec INR (<1.2) APTT (22.0-30.0) sec Sodium (137-145) mmol/L Potassium (3.5-5.1) mmol/L Chloride (98-107) mmol/L Carbon Dioxide (22-30) mmol/L Anion Gap mmol/L BUN (9-20) mg/dL Creatinine (0.66-1.25) mg/dL Est GFR (CKD-EPI)AfAm (>60 ml/min/1.73 sqM) Est GFR (CKD-EPI)NonAf (>60 ml/min/1.73 sqM) Glucose (74-99) mg/dL Lactic Ac Sepsis Rflx Y Plasma Lactic Acid Saw 2.3 H* (0.7-2.0) mmol/L Calcium (8.4-10.2) mg/dL Magnesium (1.6-2.3) mg/dL Total Bilirubin (0.2-1.3) mg/dL AST (17-59) U/L ALT (4-49) U/L Alkaline Phosphatase (38-126) U/L Troponin I (0.000-0.034) ng/mL Total Protein (6.3-8.2) g/dL Albumin (3.5-5.0) g/dL Urine Color Yellow Urine Appearance Cloudy (Clear) Urine pH 5.0 (5.0-8.0) Ur Specific [place] 1.018 (1.001-1.035) Urine Protein Trace H (Negative) Urine Glucose (UA) Trace H (Negative) Urine Ketones Trace H (Negative) Urine Blood Trace H (Negative) Urine Nitrite Negative (Negative) Urine Bilirubin Negative (Negative) Urine Urobilinogen <2.0 (<2.0) mg/dL Ur Leukocyte Esterase Negative (Negative) Urine RBC 4 (0-5) /hpf Urine WBC 12 H (0-5) /hpf Hyaline Casts 5 H (0-2) /lpf Urine Mucus Rare H (None) /hpf Urine Yeast (Budding) Few H (None) /hpf Blood Type Blood Type Recheck Bld Type Recheck Status Antibody Screen Spec Expiration Date 01/23/25 Range/Units 14:31 WBC 25.37 H (4.50-10.00) 10*3/uL RBC 3.03 L (4.40-5.60) 10*6/uL Hgb 9.5 L (13.0-17.0) g/dL Hct 29.1 L (39.6-50.0) % MCV 96.0 (80.0-97.0) fL MCH 31.4 (27.0-32.0) pg MCHC 32.6 (32.0-37.0) g/dL Plt Count 258 (140-440) 10*3/uL MPV 10.1 (9.5-12.2) fL Immature Gran % (Auto) 0.9 % Neutrophils % 85.4 % Lymphocytes % 7.6 % Monocytes % 5.9 % Eosinophils % 0.0 % Basophils % 0.2 % Immature Gran # 0.23 H (0.00-0.04) 10*3/uL Neutrophils # 21.66 H (1.80-7.70) 10*3/uL Lymphocytes # 1.94 (0.90-5.00) 10*3/uL Monocytes # 1.49 H (0.20-1.00) 10*3/uL Eosinophils # 0.00 L (0.04-0.35) 10*3/uL Basophils # 0.05 (0.00-0.10) 10*3/uL PT (10.0-12.5) sec INR (<1.2) APTT (22.0-30.0) sec Sodium (137-145) mmol/L Potassium (3.5-5.1) mmol/L Chloride (98-107) mmol/L Carbon Dioxide (22-30) mmol/L Anion Gap mmol/L BUN (9-20) mg/dL Creatinine (0.66-1.25) mg/dL Est GFR (CKD-EPI)AfAm (>60 ml/min/1.73 sqM) Est GFR (CKD-EPI)NonAf (>60 ml/min/1.73 sqM) Glucose (74-99) mg/dL Lactic Ac Sepsis Rflx Plasma Lactic Acid Saw (0.7-2.0) mmol/L Calcium (8.4-10.2) mg/dL Magnesium (1.6-2.3) mg/dL Total Bilirubin (0.2-1.3) mg/dL AST (17-59) U/L ALT (4-49) U/L Alkaline Phosphatase (38-126) U/L Troponin I (0.000-0.034) ng/mL Total Protein (6.3-8.2) g/dL Albumin (3.5-5.0) g/dL Urine Color Urine Appearance (Clear) Urine pH (5.0-8.0) Ur Specific [place] (1.001-1.035) Urine Protein (Negative) Urine Glucose (UA) (Negative) Urine Ketones (Negative) Urine Blood (Negative) Urine Nitrite (Negative) Urine Bilirubin (Negative) Urine Urobilinogen (<2.0) mg/dL Ur Leukocyte Esterase (Negative) Urine RBC (0-5) /hpf Urine WBC (0-5) /hpf Hyaline Casts (0-2) /lpf Urine Mucus (None) /hpf Urine Yeast (Budding) (None) /hpf Blood Type Blood Type Recheck Bld Type Recheck Status Antibody Screen Spec Expiration Date Disposition Clinical Impression: GI bleed, Elevated troponin, Renal insufficiency, Lactic acidosis Disposition: ADMITTED IP TO THIS [facility] Referrals: Td Ghosh MD [Primary Care Provider] - 1-2 days Time of Disposition: 15:53
[2025-01-23 10:15] LABS: Basophils # (A) 0.05 10*3/uL (0.00-0.10); Basophils % (A) 0.2 %; Eosinophils # (A) 0.00 10*3/uL (0.04-0.35); Eosinophils % (A) 0.0 %; HCT 33.5 % (39.6-50.0); HGB 10.8 g/dL (13.0-17.0); Lymphocytes # (A) 1.52 10*3/uL (0.90-5.00); Lymphocytes % (A) 5.9 %; MCH 31.4 pg (27.0-32.0); MCHC 32.2 g/dL (32.0-37.0); MCV 97.4 fL (80.0-97.0); Monocytes # (A) 1.24 10*3/uL (0.20-1.00); Monocytes % (A) 4.9 %; Neutrophils # (A) 22.44 10*3/uL (1.80-7.70); Neutrophils % (A) 87.8 %; Platelet Count 287 10*3/uL (140-440); RBC 3.44 10*6/uL (4.40-5.60); RDW 13.2 % (11.5-14.5); WBC 25.55 10*3/uL (4.50-10.00)
[2025-01-23 10:28] LABS: AST 28 U/L (17-59); African American GFR (CKD) 34 (>60 ml/min/1.73 sqM); Albumin 3.5 g/dL (3.5-5.0); Alkaline Phosphatase 58 U/L (38-126); Anion Gap 13 mmol/L; Blood Urea Nitrogen 29 mg/dL (9-20); Calcium 9.5 mg/dL (8.4-10.2); Carbon Dioxide 19 mmol/L (22-30); Chloride 108 mmol/L (98-107); Glucose 160 mg/dL (74-99); Magnesium 2.0 mg/dL (1.6-2.3); Non-African American GFR(CKD) 30 (>60 ml/min/1.73 sqM); Potassium 5.2 mmol/L (3.5-5.1); Sodium 140 mmol/L (137-145); Total Protein 5.7 g/dL (6.3-8.2)
[2025-01-23 10:35] LABS: ALT 31 U/L (4-49); INR 1.0 (<1.2); Partial Thromboplastin Time 20.6 sec (22.0-30.0); Prothrombin Time 10.9 sec (10.0-12.5)
[2025-01-23] MEDS ORDERED: LACTATED RINGERS 250 ML IV PRN (11:08)
--- NOTE | 2025-01-23 11:30 | XR ---
Chest, 2 view. CLINICAL INDICATION: Male, 69 years old with history of Difficulty breathing COMPARISON: 09/25/2021 TECHNIQUE: PA and lateral views the chest are obtained. FINDINGS: Prior CABG surgery. The lungs are clear and there is no consolidative or interstitial opacity. There is no pleural effusion or pneumothorax. The heart, pulmonary vasculature, mediastinum and paula appear normal. The osseous structures are intact. IMPRESSION: No acute cardiopulmonary process. No interval change. [facility], , 01/23/2025 11:28 AM
[2025-01-23] MEDS: LACTATED RINGERS 1,000 ML IV SCH (11:50)
[2025-01-23] MEDS: cefTRIAXone IN SWFI 1,000 MG/10 ML SYRINGE IVP STA (11:50)
[2025-01-23 13:38] LABS: Bilirubin,Urine Negative (Negative); Blood,Urine Trace (Negative); Budding Yeast,Urine Few /hpf; Color,Urine Yellow; Glucose,Urine (UA) Trace (Negative); Hyaline Casts,Urine 5 /lpf (0-2); Ketones,Urine Trace (Negative); Leukocyte Esterase,Urine Negative (Negative); Mucus,Urine Rare /hpf; Nitrite,Urine Negative (Negative); PH, Urine 5.0 (5.0-8.0); Protein,Urine Trace (Negative); RBC,Urine 4 /hpf (0-5); Specific Gravity,Urine 1.018 (1.001-1.035); Urobilinogen,Urine <2.0 mg/dL (<2.0); WBC,Urine 12 /hpf (0-5)
[2025-01-23 14:38] LABS: Basophils # (A) 0.05 10*3/uL (0.00-0.10); Basophils % (A) 0.2 %; Eosinophils # (A) 0.00 10*3/uL (0.04-0.35); Eosinophils % (A) 0.0 %; HCT 29.1 % (39.6-50.0); HGB 9.5 g/dL (13.0-17.0); Lymphocytes # (A) 1.94 10*3/uL (0.90-5.00); Lymphocytes % (A) 7.6 %; MCH 31.4 pg (27.0-32.0); MCHC 32.6 g/dL (32.0-37.0); MCV 96.0 fL (80.0-97.0); Monocytes # (A) 1.49 10*3/uL (0.20-1.00); Monocytes % (A) 5.9 %; Neutrophils # (A) 21.66 10*3/uL (1.80-7.70); Neutrophils % (A) 85.4 %; Platelet Count 258 10*3/uL (140-440); RBC 3.03 10*6/uL (4.40-5.60); RDW 13.4 % (11.5-14.5); WBC 25.37 10*3/uL (4.50-10.00)
[2025-01-23] MEDS ORDERED: VANCOMYCIN IV PER PHARMACY 1 EACH MISC MISCELLANE PRN (15:46)
--- NOTE | 2025-01-23 15:46 | CT ---
EXAMINATION TYPE: CT angio abdomen pelvis DATE OF EXAM: 01/23/2025 3:19 PM COMPARISON: 06/02/2020 CLINICAL INDICATION: Male, 69 years old with history of Abdominal pain; PHH, GI bleed vs ischemic bow el, pain, rectal bleeding TECHNIQUE: CT angio abdomen pelvis Multiple thin slice sub-millimeter images were obtained before and after administration of contrast. maximum intensity projection images were obtained on a separate workstation. CT angio abdomen pelvis CT Contrast: Contrast used:100 ml mL of Isovue 370 without and with IV Contrast, Oral contrast used: without Oral Contrast None CT DLP: 1504.1 mGycm, Automated exposure control for dose reduction was used. FINDINGS: CTA Abdomen and pelvis: Bilateral iliac stent graft and aortic stent grafts are patent. The abdominal aorta does not demonstrate aneurysmal dilatation. Atherosclerotic plaquing is identified within the abdominal aorta. The origins of the superior mesenteric artery, renal arteries, inferior mesenteric artery, and celiac axis are patent. The iliac vessels are normal in morphology LOWER CHEST: No evidence of focal consolidation, pneumothorax or pleural effusion. Right middle lobe 6 mm nodule. Stable back to 2019. LIVER: Simple appearing hepatic cysts. GALLBLADDER AND BILE DUCTS: Unremarkable. PANCREAS: Unremarkable. SPLEEN: Unremarkable. ADRENAL GLANDS: Unremarkable. KIDNEYS AND URETERS: No evidence of hydronephrosis or obstructing renal calculus. The ureters are unr emarkable. Left renal cortical cysts our benign. No follow up recommended. Nonobstructing renal mary culi in the left measuring up to 2 mm. Subcentimeter right renal cysts are also present in the midlin e. No follow-up is recommended. PELVIS BLADDER: Unremarkable REPRODUCTIVE: Prostate is enlarged in size measuring 5.6 cm in transverse dimension. ABDOMEN & PELVIS STOMACH AND BOWEL: No evidence of bowel obstruction. Circumferential wall thickening of the sigmoid c olon with mild Fat stranding changes suggested and engorgement of the vasculature. Hyperemia of the m ucosa is also felt to be present. PERITONEUM: No evidence of pneumoperitoneum or free fluid. VASCULATURE: No evidence of aortic aneurysm. MUSCULOSKELETAL: Moderate disc degeneration changes are present throughout the thoracolumbar spine wi th osteophytes facet joint arthropathy and disc space narrowing. Moderate to severe degeneration valdivia ges of the hips with joint space tearing osteophyte formation subchondral cystic change and sclerosis . LYMPH NODES: No gross evidence for lymphadenopathy. SOFT TISSUE/ABDOMINAL WALL: Bilateral fat-containing inguinal hernias. Fat-containing umbilical herni a. IMPRESSION: 1. Mild colitis of the sigmoid colon suggested. 2. No evidence for active extravasation 3. No evidence of vascular occlusion. 4. Biiliac and aortic stent grafts are patent.. 5. 6 mm right middle lobe pulmonary nodule. Stable back to 06/02/2020 and likely benign. 6. Prostatomegaly, correlate serum PSA. 7. Fat-containing ventral hernias. 8. Nonobstructing left renal calculi. 9. Moderate to severe degeneration changes of the hips. [facility], , 01/23/2025 3:44 PM
[2025-01-23] MEDS: SODIUM CHLORIDE 0.9% 1,000 ML IV ONE (16:39)
[2025-01-23] MEDS: VANCOMYCIN 1,500 MG in SODIUM CHLORIDE 0.9% 500 ML 500 ML IVPB STA (16:40)
[2025-01-23 19:17] LABS: Basophils # (A) 0.04 10*3/uL (0.00-0.10); Basophils % (A) 0.2 %; Eosinophils # (A) 0.01 10*3/uL (0.04-0.35); Eosinophils % (A) 0.0 %; HCT 29.0 % (39.6-50.0); HGB 9.2 g/dL (13.0-17.0); Lymphocytes # (A) 2.58 10*3/uL (0.90-5.00); Lymphocytes % (A) 10.6 %; MCH 31.3 pg (27.0-32.0); MCHC 31.7 g/dL (32.0-37.0); MCV 98.6 fL (80.0-97.0); Monocytes # (A) 1.75 10*3/uL (0.20-1.00); Monocytes % (A) 7.2 %; Neutrophils # (A) 19.84 10*3/uL (1.80-7.70); Neutrophils % (A) 81.1 %; Platelet Count 242 10*3/uL (140-440); RBC 2.94 10*6/uL (4.40-5.60); RDW 13.4 % (11.5-14.5); WBC 24.45 10*3/uL (4.50-10.00)
[2025-01-23] MEDS: QUEtiapine 50 MG TAB PO STA (22:12)
[2025-01-24 01:46] LABS: Basophils # (A) 0.04 10*3/uL (0.00-0.10); Basophils % (A) 0.2 %; Eosinophils # (A) 0.05 10*3/uL (0.04-0.35); Eosinophils % (A) 0.3 %; HCT 25.8 % (39.6-50.0); HGB 8.3 g/dL (13.0-17.0); Lymphocytes # (A) 2.13 10*3/uL (0.90-5.00); Lymphocytes % (A) 12.3 %; MCH 31.2 pg (27.0-32.0); MCHC 32.2 g/dL (32.0-37.0); MCV 97.0 fL (80.0-97.0); Monocytes # (A) 1.08 10*3/uL (0.20-1.00); Monocytes % (A) 6.2 %; Neutrophils # (A) 13.90 10*3/uL (1.80-7.70); Neutrophils % (A) 80.5 %; Platelet Count 210 10*3/uL (140-440); RBC 2.66 10*6/uL (4.40-5.60); RDW 13.6 % (11.5-14.5); WBC 17.29 10*3/uL (4.50-10.00)
[2025-01-24 07:36] LABS: Basophils # (A) 0.05 10*3/uL (0.00-0.10); Basophils % (A) 0.3 %; Eosinophils # (A) 0.07 10*3/uL (0.04-0.35); Eosinophils % (A) 0.5 %; HCT 27.2 % (39.6-50.0); HGB 8.5 g/dL (13.0-17.0); Lymphocytes # (A) 1.76 10*3/uL (0.90-5.00); Lymphocytes % (A) 11.7 %; MCH 30.6 pg (27.0-32.0); MCHC 31.3 g/dL (32.0-37.0); MCV 97.8 fL (80.0-97.0); Monocytes # (A) 0.99 10*3/uL (0.20-1.00); Monocytes % (A) 6.6 %; Neutrophils # (A) 12.06 10*3/uL (1.80-7.70); Neutrophils % (A) 80.2 %; Platelet Count 212 10*3/uL (140-440); RBC 2.78 10*6/uL (4.40-5.60); RDW 13.6 % (11.5-14.5); WBC 15.03 10*3/uL (4.50-10.00)
[2025-01-24 07:47] LABS: African American GFR (CKD) >90 (>60 ml/min/1.73 sqM); Non-African American GFR(CKD) 81 (>60 ml/min/1.73 sqM)
[2025-01-24] MEDS: FINASTERIDE 5 MG TAB PO SCH (09:47)
[2025-01-24] MEDS: TAMSULOSIN 0.4 MG CAP.ER.24H PO SCH (09:47)
[2025-01-24] MEDS: VANCOMYCIN 1,500 MG in SODIUM CHLORIDE 0.9% 500 ML 500 ML IVPB SCH (09:48)
[2025-01-24] MEDS: buPROPion XL 300 MG TAB.ER.24H PO SCH (09:48)
[2025-01-24] MEDS: METOPROLOL TARTRATE 25 MG TAB PO SCH (09:48)
--- NOTE | 2025-01-24 11:26 | P.CRDCN ---
History of Present Illness Consult date: 01/24/25 Requesting physician: Martinez Dinh Reason for Consult (text): Elevated troponin Chief complaint: GI bleed History of present illness: This is a pleasant 69-year-old male patient of Dr. Verma with past medical history of CAD s/p CABG, atrial flutter status post cardioversion, hypertension, hyperlipidemia, AAA s/p repair, and prior smoking. Patient is somewhat confused in regards to the events surrounding his admission. HPI was obtained from the chart. He was apparently found at home on the floor with evidence of GI bleed and confusion. He had stool and blood all over his legs and was very confused upon presentation. We were asked to see the patient in consultation due to elevated troponins. Labs on admission also showed evidence of acute kidney injury and anemia. Diagnostics -EKG: Sinus rhythm with right bundle branch block -Chest x-ray: No acute cardiopulmonary process, no interval change -CTA of the abdomen and pelvis: Mild colitis of the sigmoid colon suggested, by iliac and aortic stent grafts patent, 6 mm right middle lobe pulmonary nodule stable since 06/02/2022, prostatomegaly, fat-containing ventral hernias, nonobstructing left renal calculi and moderate to severe degenerative changes of the hips -Laboratory studies: White blood cell count 24,450, hemoglobin 9.2, sodium 140, potassium 5.2, BUN 29, creatinine 2.16, troponin 0.482 -Home cardiac medications: Plavix 75 mg p.o. daily, aspirin 81 mg p.o. daily, Eliquis 5 mg p.o. twice daily, metoprolol tartrate 25 mg p.o. twice daily and atorvastatin 40 mg p.o. nightly -Prior stress test: 05/31/2022 small apical ischemia -Echocardiogram: 09/26/2021 normal ejection fraction with mild MR mild TR -Cardiac catheterization: Not available Review Of Systems: At the time of my exam: CONSTITUTIONAL: Denies fever or chills. HEENT: Denies blurred vision, vision changes. CARDIOVASCULAR: Denies chest pain. Denies orthopnea. Denies PND. Denies palpitations, dizziness, or syncope. RESPIRATORY: Denies shortness of breath, wheezing, or cough. Denies hemoptysis. GASTROINTESTINAL: Denies abdominal pain. Denies nausea or vomiting. + bleeding. HEMATOLOGIC: Denies bleeding disorders. GENITOURINARY: + hematuria. SKIN: Denies puritis. Denies rash. PHYSICAL EXAMINATION: This is a 69-year-old gentleman in no apparent distress at the time of my examination. VITAL SIGNS: Reviewed. HEENT: Head is atraumatic, normocephalic. Pupils are equal, round. Sclerae anicteric. Conjunctivae are clear. Mucous membranes of the mouth are moist. Neck is supple. There is no elevated jugular venous pressure. No carotid bruit is he lucian. CHEST EXAMINATION: Clear to auscultation bilaterally. No wheezes rales or rhonchi. Respirations even and nonlabored. HEART EXAMINATION: Heart regular, positive S1 and S2. No S3. No S4. No clicks, rubs or murmurs. ABDOMEN: Soft, nontender. Bowel sounds are heard. No organomegaly noted. EXTREMITIES: Diminished peripheral pulses with no evidence of peripheral edema and no calf tenderness noted. NEUROLOGIC EXAMINATION: Patient is awake, alert and oriented x2. Assessment: 1. GI bleed 2. Acute kidney injury 3. Elevated troponin 4. CAD status post CABG 5. Atrial fibrillation status post cardioversion, maintaining sinus mechanism 6. AAA status post repair Plan: From cardiology's perspective troponin elevation likely related to GI bleed and acute kidney injury. Will obtain 2D echo with Doppler study to assess cardiac structure and function. Hold anticoagulation awaiting GI input. We will continue to follow the patient and provide further recommendations accordingly. Thank you kindly for this consultation. Nurse practitioner note has been reviewed, I agree with documented findings and plan of care. Patient was seen and examined. Past Medical History Past Medical History: Coronary Artery Disease (CAD), COPD, Hyperlipidemia, Hyp ertension, Myocardial Infarction ([place]), Prostate Disorder Additional Past Medical History / Comment(s): STATES "MILD COPD" (NO MEDS), ENLARGED PROSTATE., AAA Last Myocardial Infarction Date:: 2011 History of Any Multi-Drug Resistant Organisms: None Reported Past Surgical History: Coronary Bypass/CABG, Hernia Repair Additional Past Surgical History / Comment(s): TRIPLE CABG (2012), HERNIA (CHILD) Past Anesthesia/Blood Transfusion Reactions: No Reported Reaction Past Psychological History: Depression Smoking Status: Current some day smoker Past Alcohol Use History: None Reported Past Drug Use History: None Reported - Past Family History Mother Family Medical History: No Reported History Medications and Allergies Home Medications Medication Instructions Recorded Confirmed Type buPROPion HCL [Wellbutrin XL] 300 mg PO DAILY 11/21/14 01/23/25 History Finasteride [Proscar] 5 mg PO DAILY 08/20/19 01/23/25 History Tamsulosin [Flomax] 0.4 mg PO DAILY 08/20/19 01/23/25 History Atorvastatin [Lipitor] 40 mg PO HS 09/25/21 01/23/25 History Apixaban [Eliquis] 5 mg PO BID 30 Days #60 tab 09/26/21 01/23/25 Rx Aspirin EC [Ecotrin Low Dose] 81 mg PO DAILY 01/23/25 01/23/25 History Clopidogrel [Plavix] 75 mg PO DAILY 01/23/25 01/24/25 History Metoprolol Tartrate [Lopressor] 25 mg PO BID 01/23/25 01/23/25 History QUEtiapine [SEROquel] 50 mg PO HS 01/23/25 01/24/25 History Allergies Allergy/AdvReac Type Severity Reaction Status Date / Time No Known Allergies Allergy Verified 01/23/25 17:18 Physical Exam Vitals: Vital Signs Temp Pulse Resp BP Pulse Ox 01/24/25 09:51 97.8 F 60 18 117/60 96 01/24/25 06:19 57 L 18 131/66 97 01/24/25 04:00 56 L 16 101/50 97 01/24/25 00:00 72 16 107/56 96 01/23/25 22:14 81 16 118/65 99 01/23/25 19:49 67 19 121/65 93 L 01/23/25 18:02 99.3 F 71 16 112/68 96 01/23/25 17:00 77 16 128/65 99 01/23/25 14:24 78 16 121/72 96 01/23/25 11:45 91 16 122/71 93 L Results 01/24/25 06:50 01/24/25 06:50 CBC 01/23/25 01/23/25 01/24/25 Range/Units 14:31 19:08 01:25 WBC 25.37 H 24.45 H 17.29 H (4.50-10.00) 10*3/uL RBC 3.03 L 2.94 L 2.66 L (4.40-5.60) 10*6/uL Hgb 9.5 L 9.2 L 8.3 L (13.0-17.0) g/dL Hct 29.1 L 29.0 L 25.8 L (39.6-50.0) % Plt Count 258 242 210 (140-440) 10*3/uL 01/24/25 Range/Units 06:50 WBC 15.03 H (4.50-10.00) 10*3/uL RBC 2.78 L (4.40-5.60) 10*6/uL Hgb 8.5 L (13.0-17.0) g/dL Hct 27.2 L (39.6-50.0) % Plt Count 212 (140-440) 10*3/uL Comprehensive Metabolic Panel 01/24/25 Range/Units 06:50 Creatinine 0.95 (0.66-1.25) mg/dL Current Medications Generic Name Dose Route Start Last Admin Trade Name Freq PRN Reason Stop Dose Admin Atorvastatin Calcium 40 mg 01/24/25 21:00 Atorvastatin 40 Mg Tab PO HS MELINDA Bupropion HCl 300 mg 01/24/25 09:00 01/24/25 09:48 Bupropion Xl 300 Mg Tab.Er.24h PO 300 mg DAILY MELINDA Administration Finasteride 5 mg 01/24/25 09:00 01/24/25 09:47 Finasteride 5 Mg Tab PO 5 mg DAILY MELINDA Administration Vancomycin HCl 1,500 mg/ 500 mls @ 167 mls/hr 01/24/25 09:00 01/24/25 09:48 Sodium Chloride IVPB 167 mls/hr Q12HR MELINDA Administration Metoprolol Tartrate 25 mg 01/24/25 09:00 01/24/25 09:48 Metoprolol Tartrate 25 Mg Tab PO 25 mg BID MELINDA Administration Tamsulosin HCl 0.4 mg 01/24/25 09:00 01/24/25 09:47 Tamsulosin 0.4 Mg Cap.Er.24h PO 0.4 mg DAILY MELINDA Administration 01/24/25 06:50 01/24/25 06:50
--- NOTE | 2025-01-24 11:46 | P.CONS ---
History of Present Illness - Reason for Consult Consult date: 01/24/25 GI bleed Requesting physician: Ziggy Au - Chief Complaint Confused - History of Present Illness This is a pleasant 69-year-old male with a history of dementia, coronary artery disease, COPD, hyperlipidemia, hypertension, prostate disorder, abdominal aortic aneurysm who was brought in by his son after being found in his garage with blood on the floor and in a bucket and confused. Patient send reportedly had told the emergency department that he was found with stool on his legs he also had blood on his legs. There was blood on the floor and in a bucket. Patient states the blood was secondary to an injury on his leg which she does have a scab on his right lower extremity. He states that he had hit his leg in the house and he started bleeding so he put his leg in a laundry basket and walked out into the garage so he went to get blood everywhere. He states he was having significant amount of bleeding from his lower extremity wound that it was "squirting out". patient denies having any lower GI bleeding. States that he occasionally has some bright red blood which he accounts for secondary to hemorrhoids. States his bowel movements are usually every other day. Denies any previous history of GI bleed. He did have a CTA of the abdomen pelvis that reported mild sigmoid colitis. Reports his last colonoscopy was he believes a couple years ago maybe at [facility]. He denies any abdominal pain, nausea or vomiting. Patient with leukocytosis on admission with a WBC of 25.5 and hemoglobin of 10.8. Patient received about a 3000 mL bolus when he came into the emergency department he was started on IV vancomycin. Repeat labs today WBC 15 hemoglobin 8.5 hematocrit 27 platelet count 212,000 INR 1.0 Review of Systems REVIEW OF SYSTEMS: CARDIOPULMONARY: No chest pain or shortness of breath. Gastrointestinal: No abdominal pain. No nausea or vomiting. No hematemesis, coffee-ground emesis. Occasional rectal bleeding with hemorrhoids, no melena melena. GENITOURINARY: No dysuria or hematuria. MUSCULOSKELETAL: Reports normal range of motion., Joint pain. SKIN: No rashes. No jaundice. Right lower extremity abrasion/scab. ENDOCRINE: No chills, fevers. No excessive weight gain or loss. No polydipsia or polyuria. PSYCHIATRIC: Unremarkable. NEUROLOGY: No change in mental status. Denies dizziness, headache. ENT: Vision unremarkable. CONSTITUTIONAL: No recent weight loss. No fever, chills, night sweats. Past Medical History Past Medical History: Coronary Artery Disease (CAD), COPD, Hyperlipidemia, Hypertension, Myocardial Infarction ([place]), Prostate Disorder Additional Past Medical History / Comment(s): STATES "MILD COPD" (NO MEDS), ENLARGED PROSTATE., AAA Last Myocardial Infarction Date:: 2011 History of Any Multi-Drug Resistant Organisms: None Reported Past Surgical History: Coronary Bypass/CABG, Hernia Repair Additional Past Surgical History / Comment(s): TRIPLE CABG (2012), HERNIA (CHILD) Past Anesthesia/Blood Transfusion Reactions: No Reported Reaction Past Psychological History: Depression Smoking Status: Current some day smoker Past Alcohol Use History: None Reported Past Drug Use History: None Reported - Past Family History Mother Family Medical History: No Reported History Medications and Allergies Home Medications Medication Instructions Recorded Confirmed Type buPROPion HCL [Wellbutrin XL] 300 mg PO DAILY 11/21/14 01/23/25 History Finasteride [Proscar] 5 mg PO DAILY 08/20/19 01/23/25 History Tamsulosin [Flomax] 0.4 mg PO DAILY 08/20/19 01/23/25 History Atorvastatin [Lipitor] 40 mg PO HS 09/25/21 01/23/25 History Apixaban [Eliquis] 5 mg PO BID 30 Days #60 tab 09/26/21 01/23/25 Rx Aspirin EC [Ecotrin Low Dose] 81 mg PO DAILY 01/23/25 01/23/25 History Clopidogrel [Plavix] 75 mg PO DAILY 01/23/25 01/24/25 History Metoprolol Tartrate [Lopressor] 25 mg PO BID 01/23/25 01/23/25 History QUEtiapine [SEROquel] 50 mg PO HS 01/23/25 01/24/25 History Allergies Allergy/AdvReac Type Severity Reaction Status Date / Time No Known Allergies Allergy Verified 01/23/25 17:18 Physical Exam Vitals: Vital Signs Temp Pulse Resp BP Pulse Ox 01/24/25 06:19 57 L 18 131/66 97 01/24/25 04:00 56 L 16 101/50 97 01/24/25 00:00 72 16 107/56 96 01/23/25 22:14 81 16 118/65 99 07/13/25 19:49 67 19 121/65 93 L 01/23/25 18:02 99.3 F 71 16 112/68 96 01/23/25 17:00 77 16 128/65 99 01/23/25 14:24 78 16 121/72 96 01/23/25 11:45 91 16 122/71 93 L 01/23/25 09:48 98.9 F 70 18 130/73 96 General appearance: The patient is alert, oriented, appears in no acute distress. HET: Head is normocephalic and atraumatic. Conjunctiva pink. Sclera anicteric. Neck: Supple without lymphadenopathy. Trachea midline. Heart: Regular. Lungs: Equal expansion, normal respiratory effort. Abdomen: Soft, nontender, nondistended. Skin: No rashes. No jaundice. Extremities: Normal skin color and turgor. No pedal edema. Neurological: No focal deficits. Alert and oriented. Results CBC & Chem 7: 01/24/25 06:50 01/24/25 06:50 Labs: Abnormal Lab Results - Last 24 Hours (Table) 01/23/25 01/23/25 01/23/25 Range/Units 10:04 10:04 10:04 WBC 25.55 H (4.50-10.00) 10*3/uL RBC 3.44 L (4.40-5.60) 10*6/uL Hgb 10.8 L (13.0-17.0) g/dL Hct 33.5 L (39.6-50.0) % MCV 97.4 H (80.0-97.0) fL MCHC (32.0-37.0) g/dL Immature Gran # 0.30 H (0.00-0.04) 10*3/uL Neutrophils # 22.44 H (1.80-7.70) 10*3/uL Monocytes # 1.24 H (0.20-1.00) 10*3/uL Eosinophils # 0.00 L (0.04-0.35) 10*3/uL APTT 20.6 L (22.0-30.0) sec Potassium 5.2 H (3.5-5.1) mmol/L Chloride 108 H (98-107) mmol/L Carbon Dioxide 19 L (22-30) mmol/L BUN 29 H (9-20) mg/dL Creatinine 2.16 H (0.66-1.25) mg/dL Glucose 160 H (74-99) mg/dL Plasma Lactic Acid Saw (0.7-2.0) mmol/L Troponin I (0.000-0.034) ng/mL Total Protein 5.7 L (6.3-8.2) g/dL Urine Protein (Negative) Urine Glucose (UA) (Negative) Urine Ketones (Negative) Urine Blood (Negative) Urine WBC (0-5) /hpf Hyaline Casts (0-2) /lpf Urine Mucus (None) /hpf Urine Yeast (Budding) (None) /hpf 01/23/25 01/23/25 01/23/25 Range/Units 10:04 10:04 13:24 WBC (4.50-10.00) 10*3/uL RBC (4.40-5.60) 10*6/uL Hgb (13.0-17.0) g/dL Hct (39.6-50.0) % MCV (80.0-97.0) fL MCHC (32.0-37.0) g/dL Immature Gran # (0.00-0.04) 10*3/uL Neutrophils # (1.80-7.70) 10*3/uL Monocytes # (0.20-1.00) 10*3/uL Eosinophils # (0.04-0.35) 10*3/uL APTT (22.0-30.0) sec Potassium (3.5-5.1) mmol/L Chloride (98-107) mmol/L Carbon Dioxide (22-30) mmol/L BUN (9-20) mg/dL Creatinine (0.66-1.25) mg/dL Glucose (74-99) mg/dL Plasma Lactic Acid Saw 5.3 H* (0.7-2.0) mmol/L Troponin I 0.482 H* (0.000-0.034) ng/mL Total Protein (6.3-8.2) g/dL Urine Protein Trace H (Negative) Urine Glucose (UA) Trace H (Negative) Urine Ketones Trace H (Negative) Urine Blood Trace H (Negative) Urine WBC 12 H (0-5) /hpf Hyaline Casts 5 H (0-2) /lpf Urine Mucus Rare H (None) /hpf Urine Yeast (Budding) Few H (None) /hpf 01/23/25 01/23/25 01/23/25 Range/Units 14:31 14:31 19:08 WBC 25.37 H 24.45 H (4.50-10.00) 10*3/uL RBC 3.03 L 2.94 L (4.40-5.60) 10*6/uL Hgb 9.5 L 9.2 L (13.0-17.0) g/dL Hct 29.1 L 29.0 L (39.6-50.0) % MCV 98.6 H (80.0-97.0) fL MCHC 31.7 L (32.0-37.0) g/dL Immature Gran # 0.23 H 0.23 H (0.00-0.04) 10*3/uL Neutrophils # 21.66 H 19.84 H (1.80-7.70) 10*3/uL Monocytes # 1.49 H 1.75 H (0.20-1.00) 10*3/uL Eosinophils # 0.00 L 0.01 L (0.04-0.35) 10*3/uL APTT (22.0-30.0) sec Potassium (3.5-5.1) mmol/L Chloride (98-107) mmol/L Carbon Dioxide (22-30) mmol/L BUN (9-20) mg/dL Creatinine (0.66-1.25) mg/dL Glucose (74-99) mg/dL Plasma Lactic Acid Saw 2.3 H* (0.7-2.0) mmol/L Troponin I (0.000-0.034) ng/mL Total Protein (6.3-8.2) g/dL Urine Protein (Negative) Urine Glucose (UA) (Negative) Urine Ketones (Negative) Urine Blood (Negative) Urine WBC (0-5) /hpf Hyaline Casts (0-2) /lpf Urine Mucus (None) /hpf Urine Yeast (Budding) (None) /hpf 01/24/25 01/24/25 Range/Units 01:25 06:50 WBC 17.29 H 15.03 H (4.50-10.00) 10*3/uL RBC 2.66 L 2.78 L (4.40-5.60) 10*6/uL Hgb 8.3 L 8.5 L (13.0-17.0) g/dL Hct 25.8 L 27.2 L (39.6-50.0) % MCV 97.8 H (80.0-97.0) fL MCHC 31.3 L (32.0-37.0) g/dL Immature Gran # 0.09 H 0.10 H (0.00-0.04) 10*3/uL Neutrophils # 13.90 H 12.06 H (1.80-7.70) 10*3/uL Monocytes # 1.08 H (0.20-1.00) 10*3/uL Eosinophils # (0.04-0.35) 10*3/uL APTT (22.0-30.0) sec Potassium (3.5-5.1) mmol/L Chloride (98-107) mmol/L Carbon Dioxide (22-30) mmol/L BUN (9-20) mg/dL Creatinine (0.66-1.25) mg/dL Glucose (74-99) mg/dL Plasma Lactic Acid Saw (0.7-2.0) mmol/L Troponin I (0.000-0.034) ng/mL Total Protein (6.3-8.2) g/dL Urine Protein (Negative) Urine Glucose (UA) (Negative) Urine Ketones (Negative) Urine Blood (Negative) Urine WBC (0-5) /hpf Hyaline Casts (0-2) /lpf Urine Mucus (None) /hpf Urine Yeast (Budding) (None) /hpf Comments: Abdomen pelvis CT angiogram reports mild colitis of the sigmoid colon suggested, no evidence for active extubation, no evidence of vascular occlusion, bili echo and aortic stent grafts are patent, 6 mm right middle lobe pulmonary nodule stable back to 06/02/2020 and likely benign. Prostamegaly, correlate serum PSA. Fat-containing ventral hernias. Nonobstructing left renal calculi. Moderate to severe degenerative changes of the hips. Assessment and Plan (1) Anemia Narrative/Plan: 69-year-old male with dementia unclear how accurate patient's HPI is, patient clearly states that he had a right lower extremity injury that was bleeding significantly yet according to the ER notes patient has dementia and was found by his son confused and concern for stool being on his leg and seeing the blood there was question if patient was having a lower GI bleed. He had a CTA of the abdomen pelvis shows some mild uncomplicated colitis. Patient denies any lower GI bleed However is anemic with a drop in his hemoglobin of 10-8.5 today. He was given significant amount of IV fluids by EMS and in the emergency department. He is on Eliquis for coronary artery disease which is currently on hold. Will continue to monitor but no plans for endoscopic evaluation at this time. Current Visit: Yes Status: Acute Code(s): D64.9 - ANEMIA, UNSPECIFIED SNOMED Code(s): 841412015 (2) GI bleed Narrative/Plan: No GI bleed noted, bleeding secondary to leg injury/abrasion Current Visit: Yes Status: Acute Code(s): K92.2 - GASTROINTESTINAL HEMORRH AGE, UNSPECIFIED SNOMED Code(s): 79022960 (3) Lower leg injury Current Visit: Yes Status: Acute Code(s): S89.90XA - UNSPECIFIED INJURY OF UNSPECIFIED LOWER LEG, INIT ENCNTR SNOMED Code(s): 016835962 (4) Coronary artery disease Current Visit: Yes Status: Acute Code(s): I25.10 - ATHSCL HEART DISEASE OF [place] CORONARY ARTERY W/O ANG PCTRS SNOMED Code(s): 35041036 (5) Elevated troponin Current Visit: Yes Status: Acute Code(s): R79.89 - OTHER SPECIFIED ABNORMAL FINDINGS OF BLOOD CHEMISTRY SNOMED Code(s): 073639080 (6) Leukocytosis Narrative/Plan: Unclear etiology, possible secondary to colitis however reported as possible mild uncomplicated colitis Current Visit: Yes Status: Acute Code(s): D72.829 - ELEVATED WHITE BLOOD CELL COUNT, UNSPECIFIED SNOMED Code(s): 710755618 (7) Atrial fibrillation Current Visit: Yes Status: Acute Code(s): I48.91 - UNSPECIFIED ATRIAL FIBRILLATION SNOMED Code(s): 36359857 Plan: 1. Continue symptomatic and supportive care 2. Hold anticoagulation to evaluate for any bleeding 3. Daily CBC, transfuse for hemoglobin less than 7 4. Patient may have heart healthy diet 5. Continue to monitor for signs of lower GI bleed, unclear if noted blood at seen in patient's house was rectal bleeding versus what patient states from his right lower extremity injury which is noted 6. Continue antibiotics as ordered 7. Rest of medical management per medical team Thank you for this consultation, we will continue to follow Dr. Carin Baeza I agree with the dictator's note, documented as a scribe by Raquel Bernstein.
--- NOTE | 2025-01-24 14:28 | P.HPIM ---
History of Present Illness H&P Date: 01/24/25 Chief Complaint: bleeding patient is a 69-year-old male with a known history of coronary artery disease status post CABG, hypertension, hyperlipidemia, history of [place] and COPD,smoker.. Patient was brought in through the ER. When the ER son had come home and found him confused naked with blood on the floor. In a bucket of in the garage. There was stool out of his legs. Patient was confused. Per the EMS his blood pressure was reportedly normal and he given some fluid bolus. As per the patient he said he started bleeding from the right lection after he bumped it. Significant amount of blood was spurting out. He then decided to go to the garage and get a bucket. In the process there was blood all over. He was not bleeding from his rectum. He also had to have a bowel movement and was unable to control and had to get his pants off. Patient has some cognitive impairment not able to give a very detailed history but is still able to give the fax in a pretty reasonably good manner weight. Denies any fever or chills. Denies abdominal pain. Review of systems: GEN.: None EYES: None HEENT: None NECK: None RESPIRATORY: None CARDIOVASCULAR: None GASTROINTESTINAL: None GENITOURINARY: None MUSCULOSKELETAL: Some joint pains LYMPHATICS: None HEMATOLOGICAL: As above PSYCHIATRY: Get full NEUROLOGICAL: None Social history: Smokes half a pack a day. Started smoking at age of 16. Denies alcohol. Lives alone. On examination: VITAL SIGNS: 97.8, 60, 18, 117 x 60, 96% room air GENERAL APPEARANCE: BMI 25.8, reclining bed awake comfortable HEENT: Normal external appearance of nose and ear. Oral cavity normal EYES: Pupils equal. Conjunctiva normal. NECK: JVD not raised. Mass not palpable. RESPIRATORY: Respiratory effort normal. Lungs clear to auscultation. CARDIOVASCULAR: Heart sounds irregular No edema. ABDOMEN: Soft. Liver and spleen not palpable. No tenderness. No mass palpable. PSYCHIATRY: Patient is able to hold a simple conversation. But not sure if this is 2024 or 2025. He thinks it is December or January. He knows that he is in the hospital. l. Musculoskeletal: He has a scab from where he was bleeding on the right lection. INVESTIGATIONS, reviewed in the clinical context: January 24, 2025: White count 15.0 hemoglobin 8.5 platelets 212. January 23: Potassium 5.2 BUN 29 creatinine 2.16 troponin I 0.482 UA: Negative for nitrite negative for leukoesterase EKG tracing personally reviewed by me-right bundle michael block. Sinus rhythm. Chest x-ray film personally reviewed by me-unremarkable Assessment and plan: - Patient found with acute confusion. Likely acute delirium. No obvious signs of infection. Patient did have significant bleeding from his right leg right hernandez. Will add compound. He had to go to the [facility] to get a bucket. In the process he did bleed a bit no GI bleed. Note that patient is Eliquis. And Plavix. - No GI bleed -Paroxysmal atrial flutter, currently: sinus rhythm L history of cardioversion Lopressor. Resume Eliquis from tonight -Hyperlipidemia Lipitor 40 mg daily at bedtime -Essential hypertension Lopressor 25 mg twice a day. -BPH Proscar 5 mg a day. Flomax 0.4 mg daily at bedtime -Depression otherwise specified Wellbutrin XL 300 mg a day -CAD with a prior history of bypass in 2011 Lipitor, Lopressor. Plavix -Chronic nicotine dependence, cigarette smoker Nicotine patch - Positive troponin. Denies chest pain. Has underlying coronary artery disease. Repeat troponin. Consult cardiology -Moderate cognitive impairment. Check B12 folate Past Medical History Past Medical History: Coronary Artery Disease (CAD), COPD, Hyperlipidemia, Hypertension, Myocardial Infarction (FL), Prostate Disorder Additional Past Medical History / Comment(s): STATES "MILD COPD" (NO MEDS), ENLARGED PROSTATE., AAA Last Myocardial Infarction Date:: 2011 History of Any Multi-Drug Resistant Organisms: None Reported Past Surgical History: Coronary Bypass/CABG, Hernia Repair Additional Past Surgical History / Comment(s): TRIPLE CABG (2012), HERNIA (CHILD) Past Anesthesia/Blood Transfusion Reactions: No Reported Reaction Past Psychological History: Depression Smoking Status: Current some day smoker Past Alcohol Use History: None Reported Past Drug Use History: None Reported - Past Family History Mother Family Medical History: No Reported History Medications and Allergies Home Medications Medication Instructions Recorded Confirmed Type buPROPion HCL [Wellbutrin XL] 300 mg PO DAILY 11/21/14 01/23/25 History Finasteride [Proscar] 5 mg PO DAILY 08/20/19 01/23/25 History Tamsulosin [Flomax] 0.4 mg PO DAILY 08/20/19 01/23/25 History Atorvastatin [Lipitor] 40 mg PO HS 09/25/21 01/23/25 History Apixaban [Eliquis] 5 mg PO BID 30 Days #60 tab 09/26/21 01/23/25 Rx Aspirin EC [Ecotrin Low Dose] 81 mg PO DAILY 01/23/25 01/23/25 History Clopidogrel [Plavix] 75 mg PO DAILY 01/23/25 01/24/25 History Metoprolol Tartrate [Lopressor] 25 mg PO BID 01/23/25 01/23/25 History QUEtiapine [SEROquel] 50 mg PO HS 01/23/25 01/24/25 History Allergies Allergy/AdvReac Type Severity Reaction Status Date / Time No Known Allergies Allergy Verified 01/23/25 17:18 Physical Exam Vitals: Vital Signs Temp Pulse Resp BP Pulse Ox 01/24/25 06:19 57 L 18 131/66 97 01/24/25 04:00 56 L 16 101/50 97 01/24/25 00:00 72 16 107/56 96 01/23/25 22:14 81 16 118/65 99 01/23/25 19:49 67 19 121/65 93 L 01/23/25 18:02 99.3 F 71 16 112/68 96 01/23/25 17:00 77 16 128/65 99 01/23/25 14:24 78 16 121/72 96 01/23/25 11:45 91 16 122/71 93 L 01/23/25 09:48 98.9 F 70 18 130/73 96 Results CBC & Chem 7: 01/24/25 06:50 01/24/25 06:50 Labs: Abnormal Lab Results - Last 24 Hours (Table) 01/23/25 01/23/25 01/23/25 Range/Units 10:04 10:04 10:04 WBC 25.55 H (4.50-10.00) 10*3/uL RBC 3.44 L (4.40-5.60) 10*6/uL Hgb 10.8 L (13.0-17.0) g/dL Hct 33.5 L (39.6-50.0) % MCV 97.4 H (80.0-97.0) fL MCHC (32.0-37.0) g/dL Immature Gran # 0.30 H (0.00-0.04) 10*3/uL Neutrophils # 22.44 H (1.80-7.70) 10*3/uL Monocytes # 1.24 H (0.20-1.00) 10*3/uL Eosinophils # 0.00 L (0.04-0.35) 10*3/uL APTT 20.6 L (22.0-30.0) sec Potassium 5.2 H (3.5-5.1) mmol/L Chloride 108 H (98-107) mmol/L Carbon Dioxide 19 L (22-30) mmol/L BUN 29 H (9-20) mg/dL Creatinine 2.16 H (0.66-1.25) mg/dL Glucose 160 H (74-99) mg/dL Plasma Lactic Acid Saw (0.7-2.0) mmol/L Troponin I (0.000-0.034) ng/mL Total Protein 5.7 L (6.3-8.2) g/dL Urine Protein (Negative) Urine Glucose (UA) (Negative) Urine Ketones (Negative) Urine Blood (Negative) Urine WBC (0-5) /hpf Hyaline Casts (0-2) /lpf Urine Mucus (None) /hpf Urine Yeast (Budding) (None) /hpf 01/23/25 01/23/25 01/23/25 Range/Units 10:04 10:04 13:24 WBC (4.50-10.00) 10*3/uL RBC (4.40-5.60) 10*6/uL Hgb (13.0-17.0) g/dL Hct (39.6-50.0) % MCV (80.0-97.0) fL MCHC (32.0-37.0) g/dL Immature Gran # (0.00-0.04) 10*3/uL Neutrophils # (1.80-7.70) 10*3/uL Monocytes # (0.20-1.00) 10*3/uL Eosinophils # (0.04-0.35) 10*3/uL APTT (22.0-30.0) sec Potassium (3.5-5.1) mmol/L Chloride (98-107) mmol/L Carbon Dioxide (22-30) mmol/L BUN (9-20) mg/dL Creatinine (0.66-1.25) mg/dL Glucose (74-99) mg/dL Plasma Lactic Acid Saw 5.3 H* (0.7-2.0) mmol/L Troponin I 0.482 H* (0.000-0.034) ng/mL Total Protein (6.3-8.2) g/dL Urine Protein Trace H (Negative) Urine Glucose (UA) Trace H (Negative) Urine Ketones Trace H (Negative) Urine Blood Trace H (Negative) Urine WBC 12 H (0-5) /hpf Hyaline Casts 5 H (0-2) /lpf Urine Mucus Rare H (None) /hpf Urine Yeast (Budding) Few H (None) /hpf 01/23/25 01/23/25 01/23/25 Range/Units 14:31 14:31 19:08 WBC 25.37 H 24.45 H (4.50-10.00) 10*3/uL RBC 3.03 L 2.94 L (4.40-5.60) 10*6/uL Hgb 9.5 L 9.2 L (13.0-17.0) g/dL Hct 29.1 L 29.0 L (39.6-50.0) % MCV 98.6 H (80.0-97.0) fL MCHC 31.7 L (32.0-37.0) g/dL Immature Gran # 0.23 H 0.23 H (0.00-0.04) 10*3/uL Neutrophils # 21.66 H 19.84 H (1.80-7.70) 10*3/uL Monocytes # 1.49 H 1.75 H (0.20-1.00) 10*3/uL Eosinophils # 0.00 L 0.01 L (0.04-0.35) 10*3/uL APTT (22.0-30.0) sec Potassium (3.5-5.1) mmol/L Chloride (98-107) mmol/L Carbon Dioxide (22-30) mmol/L BUN (9-20) mg/dL Creatinine (0.66-1.25) mg/dL Glucose (74-99) mg/dL Plasma Lactic Acid Saw 2.3 H* (0.7-2.0) mmol/L Troponin I (0.000-0.034) ng/mL Total Protein (6.3-8.2) g/dL Urine Protein (Negative) Urine Glucose (UA) (Negative) Urine Ketones (Negative) Urine Blood (Negative) Urine WBC (0-5) /hpf Hyaline Casts (0-2) /lpf Urine Mucus (None) /hpf Urine Yeast (Budding) (None) /hpf 01/24/25 01/24/25 Range/Units 01:25 06:50 WBC 17.29 H 15.03 H (4.50-10.00) 10*3/uL RBC 2.66 L 2.78 L (4.40-5.60) 10*6/uL Hgb 8.3 L 8.5 L (13.0-17.0) g/dL Hct 25.8 L 27.2 L (39.6-50.0) % MCV 97.8 H (80.0-97.0) fL MCHC 31.3 L (32.0-37.0) g/dL Immature Gran # 0.09 H 0.10 H (0.00-0.04) 10*3/uL Neutrophils # 13.90 H 12.06 H (1.80-7.70) 10*3/uL Monocytes # 1.08 H (0.20-1.00) 10*3/uL Eosinophils # (0.04-0.35) 10*3/uL APTT (22.0-30.0) sec Potassium (3.5-5.1) mmol/L Chloride (98-107) mmol/L Carbon Dioxide (22-30) mmol/L BUN (9-20) mg/dL Creatinine (0.66-1.25) mg/dL Glucose (74-99) mg/dL Plasma Lactic Acid Saw (0.7-2.0) mmol/L Troponin I (0.000-0.034) ng/mL Total Protein (6.3-8.2) g/dL Urine Protein (Negative) Urine Glucose (UA) (Negative) Urine Ketones (Negative) Urine Blood (Negative) Urine WBC (0-5) /hpf Hyaline Casts (0-2) /lpf Urine Mucus (None) /hpf Urine Yeast (Budding) (None) /hpf
[2025-01-24] MEDS: NICOTINE 14MG/24HR PATCH TRANSDERM SCH (15:06)
[2025-01-24] MEDS ORDERED: OLANZapine 5 MG TAB PO PRN (15:08)
--- NOTE | 2025-01-24 15:16 | P.CN ---
Psychiatric Consult - . Consult date: 01/24/25 Consult:: 01/24/25 15:10 IDENTIFYING DATA: This patient is a 69-year-old male, living independently, on disability REASON FOR REFERRAL: Psychiatry was consulted for mental health evaluation, hallucinations HISTORY OF PRESENT ILLNESS: The patient presented to the hospital with GI bleed. Patient's white count was elevated at 25.5, low hemoglobin at 10.8 however abdomen and pelvis CTA revealed mild colitis of the sigmoid colon. Patient was seen and evaluated in his room with son present at bedside who is his DPOA. Patient was A&Ox2, not date/year, did exhibit confusion with memory impairment. Patient denied any past psych history however has recently began services at [facility] for both counseling and psychiatry given his ongoing hallucinations that happen predominantly at night. Patient's hallucinations are very vivid, detailed and includes seeing children and monkeys. Patient's son states he lives close by and sees patient regularly however he is independent with most of his ADLs and takes his medications without assistance however he is going to buy a dispensary so that patient gets his medications monitored daily as he does have a history of overtaking his medications. Patient Seroquel was recently increased about 3-4 days ago and this has been helpful for the hallucinations. At this time patient denies any suicidal or homicidal ideations, intent or plan. Patient denies any auditory, visual hallucinations and denies any paranoia or delusions. Patients admits to using cannabis with occasional nicotine. PAST PSYCHIATRIC HISTORY: Patient has no past psych history. Patient is currently on Seroquel 50 mg at bedtime, Wellbutrin XL 300 mg daily. Patient denies any previous psychiatric hospitalizations. Patient sees a therapist and psychiatrist at [facility]. Patient denies any history of suicide attempts in the past. PAST MEDICAL HISTORY: CAD, COPD, dyslipidemia, hypertension, GA, prostate disorder. ALLERGIES: as per EMR. CHEMICAL DEPENDENCY HISTORY: as per HPI. FAMILY PSYCHIATRIC/SUBSTANCE USE HISTORY: She states his mother had schizophrenia and that his dad abused alcohol. SOCIAL HISTORY: Patient is and has 2 children. He lives independently however his son lives close by. He is retired and is currently on disability. MENTAL STATUS EXAM: General Appearance: Patient appears to be stated age is alert, pleasant, and cooperative. Patient appears to have fair hygiene and grooming wearing hospital gown with fair eye contact. Behavior: Patient is calmly lying in bed without any agitated behavior. Speech: Patient's speech is fluent and nonpressured. Mood/Affect: Patient reports their mood is "okay", affect is congruent, constricted Suicidality/Homicidality: Patient denies having any suicidal or homicidal ideation intent or plan. Perceptions: Patient denies any visual hallucinations and denies any auditory hallucinations Though content/process: There is no evidence of any delusional thought content and thought process is linear and goal-directed. Memory and concentration: AOX2, not date/year Judgment and insight: Limited IMPRESSIONS: Major neurocognitive disorder Rule out cannabis use disorder PLAN: -At this time patient DOES NOT meet criteria for inpatient psychiatric admission. [-Patient DOES NOT have decision making capacity at this time and is un able to reason through and communicate/appreciate the risks, benefits and alternatives to treatment.] -Delirium precautions recommended with patient including - avoiding use of narcotics and ESTIMATOR sedatives, limit anticholinergic medications when possible, frequent re-orientation, minimize use of restraints, open window shades during the day and close them at night -Would recommend the following medication changes/additions: Resume Seroquel 50 mg at bedtime for psychosis, Wellbutrin XL 300 mg daily for mood, add as needed Zyprexa p.o./IM 5 mg for acute safety concerns, start Aricept 5 mg at bedtime for cognitive impairment. Patient to follow-up with his outpatient provider at [facility] -Psychiatry will sign off at this time -Please contact with any questions.
[2025-01-24] MEDS: ASPIRIN 81 MG PO SCH (15:41)
[2025-01-24] MEDS ORDERED: VANCOMYCIN 1,500 MG in SODIUM CHLORIDE 0.9% 500 ML 500 ML IVPB ONE (17:00)
[2025-01-24] MEDS ORDERED: VANCOMYCIN 1,500 MG in SODIUM CHLORIDE 0.9% 500 ML 500 ML IVPB SCH (17:00)
[2025-01-24] MEDS: APIXABAN 5 MG TAB PO SCH (20:30)
[2025-01-24] MEDS: ATORVASTATIN 40 MG TAB PO SCH (20:34)
[2025-01-24] MEDS: QUEtiapine 50 MG TAB PO SCH (20:35)
[2025-01-24] MEDS: DONEPEZIL 5 MG TAB PO SCH (20:35)
[2025-01-24] MEDS: OLANZapine 10 MG VIAL IM PRN (23:07)
[2025-01-25] MEDS: HALOPERIDOL LACTATE 5 MG/ML 1 ML VIAL IM STA (01:50)
[2025-01-25 06:15] LABS: Basophils # (A) 0.06 10*3/uL (0.00-0.10); Basophils % (A) 0.6 %; Eosinophils # (A) 0.22 10*3/uL (0.04-0.35); Eosinophils % (A) 2.3 %; HCT 27.1 % (39.6-50.0); HGB 8.4 g/dL (13.0-17.0); Lymphocytes # (A) 1.94 10*3/uL (0.90-5.00); Lymphocytes % (A) 20.0 %; MCH 30.8 pg (27.0-32.0); MCHC 31.0 g/dL (32.0-37.0); MCV 99.3 fL (80.0-97.0); Monocytes # (A) 0.64 10*3/uL (0.20-1.00); Monocytes % (A) 6.6 %; Neutrophils # (A) 6.74 10*3/uL (1.80-7.70); Neutrophils % (A) 69.6 %; Platelet Count 225 10*3/uL (140-440); RBC 2.73 10*6/uL (4.40-5.60); RDW 13.5 % (11.5-14.5); WBC 9.69 10*3/uL (4.50-10.00)
[2025-01-25 06:24] LABS: African American GFR (CKD) >90 (>60 ml/min/1.73 sqM); Non-African American GFR(CKD) 88 (>60 ml/min/1.73 sqM)
--- NOTE | 2025-01-25 09:28 | P.PN ---
Subjective Progress Note Date: 01/25/25 This is a pleasant 69-year-old male patient of Dr. Verma with past medical history of CAD s/p CABG, atrial flutter status post cardioversion, hypertension, hyperlipidemia, AAA s/p repair, and prior smoking. Patient is somewhat confused in regards to the events surrounding his admission. HPI was obtained from the chart. He was apparently found at home on the floor with evidence of GI bleed and confusion. He had stool and blood all over his legs and was very confused upon presentation. We were asked to see the patient in consultation due to elevated troponins. Labs on admission also showed evidence of acute kidney injury and anemia. Diagnostics -EKG: Sinus rhythm with right bundle branch block -Chest x-ray: No acute cardiopulmonary process, no interval change -CTA of the abdomen and pelvis: Mild colitis of the sigmoid colon suggested, by iliac and aortic stent grafts patent, 6 mm right middle lobe pulmonary nodule stable since 06/02/2022, prostatomegaly, fat-containing ventral hernias, non obstructing left renal calculi and moderate to severe degenerative changes of the hips -Laboratory studies: White blood cell count 24,450, hemoglobin 9.2, sodium 140, potassium 5.2, BUN 29, creatinine 2.16, troponin 0.482 -Home cardiac medications: Plavix 75 mg p.o. daily, aspirin 81 mg p.o. daily, Eliquis 5 mg p.o. twice daily, metoprolol tartrate 25 mg p.o. twice daily and atorvastatin 40 mg p.o. nightly -Prior stress test: 05/31/2022 small apical ischemia -Echocardiogram: 09/26/2021 normal ejection fraction with mild MR mild TR -Cardiac catheterization: Not available 01/25/2025 Patient was seen and examined resting comfortably in bed. Patient remains somewhat confused regarding the events of his admission. He was seen by GI and there is some question that blood may not have been from GI tract. Anticoagulation remains on hold. No evidence of bleeding at this time. PHYSICAL EXAMINATION: This is a 69-year-old gentleman in no apparent distress at the time of my examination. VITAL SIGNS: Reviewed. HEENT: Head is atraumatic, normocephalic. Pupils are equal, round. Sclerae anicteric. Conjunctivae are clear. Mucous membranes of the mouth are moist. Neck is supple. There is no elevated jugular venous pressure. No carotid bruit is heard. CHEST EXAMINATION: Clear to auscultation bilaterally. No wheezes rales or rhonchi. Respirations even and nonlabored. HEART EXAMINATION: Heart regular, positive S1 and S2. No S3. No S4. No clicks, rubs or murmurs. ABDOMEN: Soft, nontender. Bowel sounds are heard. No organomegaly noted. EXTREMITIES: Diminished peripheral pulses with no evidence of peripheral edema and no calf tenderness noted. NEUROLOGIC EXAMINATION: Patient is awake, alert and oriented x2. Assessment: 1. GI bleed 2. Acute kidney injury 3. Elevated troponin 4. CAD status post CABG 5. Atrial fibrillation status post cardioversion, maintaining sinus mechanism 6. AAA status post repair Plan: From cardiology's perspective troponin elevation likely related to GI bleed and acute kidney injury. Echocardiogram is pending. Resume anticoagulation once okay by GI. We will continue to follow the patient and provide further recommendations accordingly. Nurse practitioner note has been reviewed, I agree with documented findings and plan of care. Patient was seen and examined. Objective - Vital Signs Vital signs: Vital Signs Temp 98.1 F 01/25/25 08:00 Pulse 54 L 01/25/25 08:00 Resp 16 01/25/25 08:00 BP 130/71 01/25/25 08:00 Pulse Ox 96 01/25/25 08:00 FiO2 Intake & Output 01/24/25 01/25/25 01/25/25 18:59 06:59 18:59 Intake Total 20 Output Total 1 Balance -1 20 Weight 81.647 kg 76.5 kg Intake: IV 20 Invasive Line 1 10 Invasive Line 2 10 Output: Stool 1 Other: Voiding Method Urinal # Voids 1 - Labs CBC & Chem 7: 01/25/25 05:47 01/25/25 05:47 Labs: Abnormal Lab Results - Last 24 Hours (Table) 01/24/25 01/24/25 01/25/25 Range/Units 11:12 14:51 05:47 RBC 2.73 L (4.40-5.60) 10*6/uL Hgb 8.4 L (13.0-17.0) g/dL Hct 27.1 L (39.6-50.0) % MCV 99.3 H (80.0-97.0) fL MCHC 31.0 L (32.0-37.0) g/dL Immature Gran # 0.09 H (0.00-0.04) 10*3/uL Troponin I 0.454 H* 0.382 H* (0.000-0.034) ng/mL Microbiology - Last 24 Hours (Table) 01/23/25 11:43 Blood Culture - Preliminary Blood 01/23/25 13:24 Urine Culture - Final Urine,Voided
--- NOTE | 2025-01-25 12:02 | P.PN ---
Subjective Progress Note Date: 01/25/25 Principal diagnosis: Ulcerative colitis, rectal bleeding This is a pleasant 69-year-old male with a history of dementia, coronary artery disease, COPD, hyperlipidemia, hypertension, prostate disorder, abdominal aortic aneurysm who was brought in by his son after being found in his garage with blood on the floor and in a bucket and confused. Patient send reportedly had told the emergency department that he was found with stool on his legs he also had blood on his legs. There was blood on the floor and in a bucket. Patient states the blood was secondary to an injury on his leg which she does have a scab on his right lower extremity. He states that he had hit his leg in the house and he started bleeding so he put his leg in a laundry basket and walked out into the garage so he went to get blood everywhere. He states he was having significant amount of bleeding from his lower extremity wound that it was "squirting out". patient denies having any lower GI bleeding. States that he occasionally has some bright red blood which he accounts for secondary to hemorrhoids. States his bowel movements are usually every other day. Denies any previous history of GI bleed. He did have a CTA of the abdomen pelvis that reported mild sigmoid colitis. Reports his last colonoscopy was he believes a couple years ago maybe at [facility]. He denies any abdominal pain, nausea or vomiting. Patient with leukocytosis on admission with a WBC of 25.5 and hemoglobin of 10.8. Patient received about a 3000 mL bolus when he came into the emergency department he was started on IV vancomycin. Repeat labs today WBC 15 hemoglobin 8.5 hematocrit 27 platelet count 212,000 INR 1.0 01/25/2025 Patient seen and examined today as a follow-up. He had a sitter at the bedside secondary to confusion through the night and trying to get up. Otherwise he was alert and oriented and states no abdominal pain and no bleeding per the rectum. Hemoglobin stable at 8.4 platelet count 225,000 Objective - Vital Signs Vital signs: Vital Signs Temp 98.1 F 01/25/25 08:00 Pulse 54 L 01/25/25 08:00 Resp 16 01/25/25 08:00 BP 130/71 01/25/25 08:00 Pulse Ox 96 01/25/25 08:00 FiO2 Intake & Output 01/24/25 01/25/25 01/25/25 18:59 06:59 18:59 Intake Total 20 Output Total 1 Balance -1 20 Weight 81.647 kg 76.5 kg Intake: IV 20 Invasive Line 1 10 Invasive Line 2 10 Output: Stool 1 Other: Voiding Method Urinal # Voids 1 - Exam General appearance: The patient is alert, oriented, appears in no acute distress. HET: Head is normocephalic and atraumatic. Conjunctiva pink. Sclera anicteric. Neck: Supple without lymphadenopathy. Abdomen: Soft, nontender, nondistended. Extremities: Normal skin color and turgor. No pedal edema Skin: No rashes, no jaundice Neurological: No focal deficits. Alert and oriented. - Labs CBC & Chem 7: 01/25/25 05:47 01/25/25 05:47 Labs: Abnormal Lab Results - Last 24 Hours (Table) 01/24/25 01/24/25 01/25/25 Range/Units 11:12 14:51 05:47 RBC 2.73 L (4.40-5.60) 10*6/uL Hgb 8.4 L (13.0-17.0) g/dL Hct 27.1 L (39.6-50.0) % MCV 99.3 H (80.0-97.0) fL MCHC 31.0 L (32.0-37.0) g/dL Immature Gran # 0.09 H (0.00-0.04) 10*3/uL Troponin I 0.454 H* 0.382 H* (0.000-0.034) ng/mL Microbiology - Last 24 Hours (Table) 01/23/25 11:43 Blood Culture - Preliminary Blood 01/23/25 13:24 Urine Culture - Final Urine,Voided Assessment and Plan (1) Anemia Narrative/Plan: 69-year-old male with dementia unclear how accurate patient's HPI is, patient clearly states that he had a right lower extremity injury that was bleeding significantly yet according to the ER notes patient has dementia and was found by his son confused and concern for stool being on his leg and seeing the blood there was question if patient was having a lower GI bleed. He had a CTA of the abdomen pelvis shows some mild uncomplicated colitis. Patient denies any lower GI bleed However is anemic with a drop in his hemoglobin of 10-8.5 today. He was given significant amount of IV fluids by EMS and in the emergency department. He is on Eliquis for coronary artery disease which is currently on hold. Will continue to monitor but no plans for endoscopic evaluation at this time. Current Visit: Yes Status: Acute Code(s): D64.9 - ANEMIA, UNSPECIFIED SNOMED Code(s): 475666917 (2) GI bleed Narrative/Plan: No GI bleed noted, bleeding secondary to leg injury/abrasion Current Visit: Yes Status: Acute Code(s): K92.2 - GASTROINTESTINAL HEM ORRHAGE, UNSPECIFIED SNOMED Code(s): 72246831 (3) Lower leg injury Current Visit: Yes Status: Acute Code(s): S89.90XA - UNSPECIFIED INJURY OF UNSPECIFIED LOWER LEG, INIT ENCNTR SNOMED Code(s): 442007676 (4) Coronary artery disease Current Visit: Yes Status: Acute Code(s): I25.10 - ATHSCL HEART DISEASE OF [place] CORONARY ARTERY W/O ANG PCTRS SNOMED Code(s): 47795547 (5) Elevated troponin Current Visit: Yes Status: Acute Code(s): R79.89 - OTHER SPECIFIED ABNORMAL FINDINGS OF BLOOD CHEMISTRY SNOMED Code(s): 112732004 (6) Leukocytosis Narrative/Plan: Unclear etiology, improved. Current Visit: Yes Status: Acute Code(s): D72.829 - ELEVATED WHITE BLOOD CELL COUNT, UNSPECIFIED SNOMED Code(s): 848626727 (7) Atrial fibrillation Current Visit: Yes Status: Acute Code(s): I48.91 - UNSPECIFIED ATRIAL FIBRILLATION SNOMED Code(s): 54074121 Plan: 1. Continue symptomatic and supportive care 2. May resume anticoagulation 3. No signs of GI bleed 4. Rest of medical management per primary medical team Thank you for this consultation, we iris sign off at this time. Dr. Carin Baeza I agree with the dictator's note, documented as a scribe by Raquel Bernstein.
--- NOTE | 2025-01-25 13:13 | CA ---
Transthoracic Echo Report Name: Andi Acosta Age: 69 Gender: M : 1955 Exam Date: 01/25/2025 07:35 Exam Location: [facility] Ht (in): 70 Wt (lb): 180 Ordering Physician: Ana Cristina Mathews Attending/Referring Phys: [id number], [employer] John Chen RDCS Procedure CPT: Indications: elevated troponin Cardiac Hx: Technical Quality: Fair Contrast 1: Total Dose (mL): Contrast 2: Total Dose (mL): MEASUREMENTS (Male / Female) Normal Values 2D ECHO LV Diastolic Diameter PLAX 5.3 cm 4.2 - 5.9 / 3.9 - 5.3 cm LV Systolic Diameter PLAX 3.9 cm IVS Diastolic Thickness 1.6 cm 0.6 - 1.0 / 0.6 - 0.9 cm LVPW Diastolic Thickness 1.4 cm 0.6 - 1.0 / 0.6 - 0.9 cm LV Relative Wall Thickness 0.6 RV Internal Dim ED PLAX 3.7 cm LA Systolic Diameter LX 4.2 cm 3.0 - 4.0 / 2.7 - 3.8 cm LV Diastolic Volume MOD BP 135.7 cm??? 67 - 155 / 56 - 104 cm??? LV Systolic Volume MOD BP 52.5 cm??? - / 19 - 49 cm??? LV Ejection Fraction MOD BP 61.3 % >= 55 % LV Cardiac Index MOD BP 2265.8 cm???/min???m??? LV Diastolic Volume MOD 4C 117.3 cm??? LV Systolic Volume MOD 4C 60.3 cm??? LV Ejection Fraction MOD 4C 48.6 % LV Cardiac Index MOD 4C 1552.3 cm???/min???m??? LV Diastolic Length 4C 7.6 cm LV Systolic Length 4C 5.9 cm LV Diastolic Volume MOD 2C 152.7 cm??? LV Systolic Volume MOD 2C 44.0 cm??? LV Ejection Fraction MOD 2C 71.2 % LV Cardiac Index MOD 2C 2959.8 cm???/min???m??? LV Diastolic Length 2C 7.8 cm LV Systolic Length 2C 5.6 cm LA Volume 67.9 cm??? 18 - 58 / 22 - 52 cm??? LA Volume Index 33.6 cm???/m??? 16 - 28 cm???/m??? M-MODE Aortic Root Diameter MM 4.2 cm LA Systolic Diameter MM 4.3 cm LA Ao Ratio MM 1.0 AV Cusp Separation MM 2.5 cm DOPPLER AV Peak Velocity 174.2 cm/s AV Peak Gradient 12.1 mmHg AV Mean Velocity 114.4 cm/s AV Mean Gradient 6.0 mmHg AV Velocity Time Integral 38.0 cm MV Area PHT 4.1 cm??? Mitral E Point Velocity 85.4 cm/s Mitral A Point Velocity 98.7 cm/s Mitral E to A Ratio 0.9 MV Deceleration Time 184.8 ms TR Peak Velocity 285.0 cm/s TR Peak Gradient 32.5 mmHg FINDINGS Left Ventricle Left ventricular ejection fraction is estimated at 60-65 %. left ventricular cavity size normal.Normal left ventricular systolic function with no obvious regional wall motion abnormalities. Moderately increased septal wall thickness. Right Ventricle Normal right ventricular size and function. Right Atrium Normal right atrial size. Left Atrium Mild left atrial dilatation. Mildly increased left atrial volume. Mitral Valve No mitral stenosis. Mild mitral regurgitation. Aortic Valve Trileaflet aortic valve. No aortic stenosis. Trace aortic regurgitation. Tricuspid Valve No tricuspid stenosis. Mild tricuspid regurgitation. Pulmonic Valve No pulmonic stenosis. Mild pulmonic regurgitation. Pericardium Normal pericardium. No pericardial or pleural effusion. Aorta Mild aortic dilatation at the level of the sinuses of valsalva (root). CONCLUSIONS Normal biventricular systolic function Mild aortic dilatation at the level of sinus of Valsalva Previewed by: Dr. Eugene Verma MD (Electronically Signed) Final Date: 25 January 2025 13:12
--- NOTE | 2025-01-25 18:00 | P.PN ---
Progress Note - Text Progress Note Date: 01/25/25 Chief Complaint: bleeding patient is a 69-year-old male with a known history of coronary artery disease status post CABG, hypertension, hyperlipidemia, history of [place] and COPD,smoker.. Patient was brought in through the ER. When the ER son had come home and found him confused naked with blood on the floor. In a bucket of in the garage. There was stool out of his legs. Patient was confused. Per the EMS his blood pressure was reportedly normal and he given some fluid bolus. As per the patient he said he started bleeding from the right lection after he bumped it. Significant amount of blood was spurting out. He then decided to go to the garage and get a bucket. In the process there was blood all over. He was not bleeding from his rectum. He also had to have a bowel movement and was unable to control and had to get his pants off. Patient has some cognitive impairment not able to give a very detailed history but is still able to give the fax in a pretty reasonably good manner weight. Denies any fever or chills. Denies abdominal pain. January 25: Earlier this morning patient became very somewhat agitated. Hallucinating seeing fire in the room. Was climbing out of the bed. Was given Zyprexa. Psychiatry was consulted. Has a sitter. High risk of fall. Hence Eliquis not be resumed. Psychiatry input appreciated. Active Medications Aspirin (Aspirin 81 Mg) 81 mg PO DAILY [facility] Last Admin: 01/25/25 08:43 Dose: 81 mg Atorvastatin Calcium (Atorvastatin 40 Mg Tab) 40 mg PO HS [facility] Last Admin: 01/24/25 20:34 Dose: 40 mg Bupropion HCl (Bupropion Xl 300 Mg Tab.Er.24h) 300 mg PO DAILY [facility] Last Admin: 01/25/25 08:43 Dose: 300 mg Donepezil HCl (Donepezil 5 Mg Tab) 5 mg PO HS [facility] Last Admin: 01/24/25 20:35 Dose: 5 mg Finasteride (Finasteride 5 Mg Tab) 5 mg PO DAILY [facility] Last Admin: 01/25/25 08:43 Dose: 5 mg Metoprolol Tartrate (Metoprolol Tartrate 25 Mg Tab) 25 mg PO BID [facility] Last Admin: 01/25/25 08:43 Dose: 25 mg Nicotine (Nicotine 14mg/24hr Patch) 1 patch TRANSDERM DAILY [facility] Last Admin: 01/25/25 08:43 Dose: 1 patch Olanzapine (Olanzapine 10 Mg Vial) 5 mg IM BID PRN PRN Reason: Agitation Last Admin: 01/24/25 23:07 Dose: 5 mg Olanzapine (Olanzapine 5 Mg Tab) 5 mg PO BID PRN PRN Reason: Agitation or Acute Psychosis Quetiapine Fumarate (Quetiapine 50 Mg Tab) 50 mg PO HS [facility] Last Admin: 01/24/25 20:35 Dose: 50 mg Tamsulosin HCl (Tamsulosin 0.4 Mg Cap.Er.24h) 0.4 mg PO DAILY [facility] Last Admin: 01/25/25 08:42 Dose: 0.4 mg Social history: Smokes half a pack a day. Started smoking at age of 16. Denies alcohol. Lives alone. On examination: VITAL SIGNS: 98.2, 56, 16, 109 x 67, 96% room air GENERAL APPEARANCE: BMI 25.8, resting in bed HEENT: Normal external appearance of nose and ear. Oral cavity normal EYES: Pupils equal. Conjunctiva normal. NECK: JVD not raised. Mass not palpable. RESPIRATORY: Respiratory effort normal. Lungs clear to auscultation. CARDIOVASCULAR: Heart sounds irregular No edema. ABDOMEN: Soft. Liver and spleen not palpable. No tenderness. No mass palpable. PSYCHIATRY: Able to answer some questions. Appeared a bit distant. Musculoskeletal: He has a scab from where he was bleeding on the right lection. INVESTIGATIONS, reviewed in the clinical context: 2D echo: EF 60-65%. No wall motion abnormality. Moderately increased septal wall thickness. January 25: White count 9.6 hemoglobin 8.4 B12 427 folate 14 January 24, 2025: White count 15.0 hemoglobin 8.5 platelets 212. January 23: Potassium 5.2 BUN 29 creatinine 2.16 troponin I 0.482 UA: Negative for nitrite negative for leukoesterase EKG tracing personally reviewed by me-right bundle michael block. Sinus rhythm. Chest x-ray film personally reviewed by me-unremarkable Assessment and plan: - Patient found with acute confusion. Likely acute delirium. No obvious signs of infection. Patient did have significant bleeding from his right leg right hernandez. Will add compound. He had to go to the garge to get a bucket. In the process he did bleed some certain amount. No GI bleed. Note that patient is Eliquis. And Plavix. Given his significant cognitive impairment and therefore risk of injury will not resume Eliquis - No GI bleed - Acute delirium with hallucinations from underlying cognitive impairment Psychiatry was consulted -Paroxysmal atrial flutter, currently: sinus rhythm L history of cardioversion Lopressor. Because of significant confusion, cognitive impairment will not resume Eliquis -Hyperlipidemia Lipitor 40 mg daily at bedtime -Essential hypertension Lopressor 25 mg twice a day. -BPH Proscar 5 mg a day. Flomax 0.4 mg daily at bedtime -Depression otherwise specified Wellbutrin XL 300 mg a day -CAD with a prior history of bypass in 2011 Lipitor, Lopressor. Plavix -Chronic nicotine dependence, cigarette smoker Nicotine patch - Positive troponin. Denies chest pain. Has underlying coronary artery disease. Repeat troponin. Cardiology following -Moderate-severe cognitive impairment. B12 folate normal. - POA, son-Scott No GI bleed. Workup per cardiology. Follow-up with elementary school social worker. Will see PT OT input. Past Medical History Past Medical History: Coronary Artery Disease (CAD), COPD, Hyperlipidemia, Hypertension, Myocardial Infarction ([place]), Prostate Disorder Additional Past Medical History / Comment(s): STATES "MILD COPD" (NO MEDS), ENLARGED PROSTATE., AAA Last Myocardial Infarction Date:: 2011 History of Any Multi-Drug Resistant Organisms: None Reported Past Surgical History: Coronary Bypass/CABG, Hernia Repair Additional Past Surgical History / Comment(s): TRIPLE CABG (2012), HERNIA (CHILD) Past Anesthesia/Blood Transfusion Reactions: No Reported Reaction Past Psychological History: Depression Smoking Status: Current some day smoker Past Alcohol Use History: None Reported Past Drug Use History: None Reported
--- NOTE | 2025-01-26 12:54 | P.PN ---
Subjective Progress Note Date: 01/26/25 This is a pleasant 69-year-old male patient of Dr. Verma with past medical history of CAD s/p CABG, atrial flutter status post cardioversion, hypertension, hyperlipidemia, AAA s/p repair, and prior smoking. Patient is somewhat confused in regards to the events surrounding his admission. HPI was obtained from the chart. He was apparently found at home on the floor with evidence of GI bleed and confusion. He had stool and blood all over his legs and was very confused upon presentation. We were asked to see the patient in consultation due to elevated troponins. Labs on admission also showed evidence of acute kidney injury and anemia. Diagnostics -EKG: Sinus rhythm with right bundle branch block -Chest x-ray: No acute cardiopulmonary process, no interval change -CTA of the abdomen and pelvis: Mild colitis of the sigmoid colon suggested, by iliac and aortic stent grafts patent, 6 mm right middle lobe pulmonary nodule stable since 06/02/2022, prostatomegaly, fat-containing ventral hernias, no nobstructing left renal calculi and moderate to severe degenerative changes of the hips -Laboratory studies: White blood cell count 24,450, hemoglobin 9.2, sodium 140, potassium 5.2, BUN 29, creatinine 2.16, troponin 0.482 -Home cardiac medications: Plavix 75 mg p.o. daily, aspirin 81 mg p.o. daily, Eliquis 5 mg p.o. twice daily, metoprolol tartrate 25 mg p.o. twice daily and atorvastatin 40 mg p.o. nightly -Prior stress test: 05/31/2022 small apical ischemia -Echocardiogram: 09/26/2021 normal ejection fraction with mild MR mild TR -Cardiac catheterization: Not available 01/25/2025 Patient was seen and examined resting comfortably in bed. Patient remains somewhat confused regarding the events of his admission. He was seen by GI and there is some question that blood may not have been from GI tract. Anticoagulation remains on hold. No evidence of bleeding at this time. 01/26/2025 Patient seen and examined. Patient has had no bleeding from his stool. No nausea or vomiting. He has been seen by GI and ruled out GI bleed. Bleeding was secondary to an injury to his leg. Echocardiogram reveals EF 60 to 65%, mild aortic dilatation at the level of sinus of Valsalva. Hemoglobin 8.4. PHYSICAL EXAMINATION: This is a 69-year-old gentleman in no apparent distress at the time of my ex amination. VITAL SIGNS: Reviewed. HEENT: Head is atraumatic, normocephalic. Pupils are equal, round. Sclerae anicteric. Conjunctivae are clear. Mucous membranes of the mouth are moist. Neck is supple. There is no elevated jugular venous pressure. No carotid bruit is heard. CHEST EXAMINATION: Clear to auscultation bilaterally. No wheezes rales or rhonchi. Respirations even and nonlabored. HEART EXAMINATION: Heart regular, positive S1 and S2. No S3. No S4. No clicks, rubs or murmurs. ABDOMEN: Soft, nontender. Bowel sounds are heard. No organomegaly noted. EXTREMITIES: Diminished peripheral pulses with no evidence of peripheral edema and no calf tenderness noted. NEUROLOGIC EXAMINATION: Patient is awake, alert and oriented x2. Assessment: 1. GI bleed ruled out by GI 2. Acute kidney injury, resolved 3. Elevated troponin 4. CAD status post CABG 5. Atrial fibrillation status post cardioversion, maintaining sinus mechanism 6. AAA status post repair 7. Acute blood loss anemia secondary to leg wound Plan: From cardiology's perspective troponin elevation likely related to acute blood loss anemia and acute kidney injury. Resume Plavix and Eliquis Further recommendations as patient progresses. Nurse practitioner note has been reviewed, I agree with documented findings and plan of care. Patient was seen and examined. Objective - Vital Signs Vital signs: Vital Signs Temp 97.9 F 01/26/25 08:00 Pulse 53 L 01/26/25 08:00 Resp 16 01/26/25 08:00 BP 122/61 01/26/25 08:00 Pulse Ox 96 01/26/25 08:00 FiO2 Intake & Output 01/25/25 01/26/25 01/26/25 18:59 06:59 18:59 Intake Total 220 40 200 Balance 220 40 200 Weight 73 kg Intake: IV 40 40 20 Invasive Line 1 20 20 10 Invasive Line 2 20 20 10 Oral 180 180 Other: Voiding Method Urinal Urinal # Voids 2 - Labs CBC & Chem 7: 01/25/25 05:47 01/25/25 05:47 Labs: Microbiology - Last 24 Hours (Table) 01/23/25 11:43 Blood Culture - Preliminary Blood
--- NOTE | 2025-01-26 14:51 | P.PN ---
Progress Note - Text Progress Note Date: 01/26/25 Chief Complaint: bleeding patient is a 69-year-old male with a known history of coronary artery disease status post CABG, hypertension, hyperlipidemia, history of [place] and COPD,smoker.. Patient was brought in through the ER. When the ER son had come home and found him confused naked with blood on the floor. In a bucket of in the garage. There was stool out of his legs. Patient was confused. Per the EMS his blood pressure was reportedly normal and he given some fluid bolus. As per the patient he said he started bleeding from the right lection after he bumped it. Significant amount of blood was spurting out. He then decided to go to the garage and get a bucket. In the process there was blood all over. He was not bleeding from his rectum. He also had to have a bowel movement and was unable to control and had to get his pants off. Patient has some cognitive impairment not able to give a very detailed history but is still able to give the fax in a pretty reasonably good manner weight. Denies any fever or chills. Denies abdominal pain. January 25: Earlier this morning patient became very somewhat agitated. Hallucinating seeing fire in the room. Was climbing out of the bed. Was given Zyprexa. Psychiatry was consulted. Has a sitter. High risk of fall. Hence Eliquis not be resumed. Psychiatry input appreciated. January 26: Patient doing much better today. Sitting up in the chair. Nurses spoken to the son and so to the social contact worker. Son did confirm that it was the evening patient gets sundowning. Patient is able to hold a simple conversation by me with me but forgetful. He does understand that he gets confused in the evening. Will consult speech to get a formal memory evaluation. Resume Eliquis. Spoke to patient's son Scott on the phone. Patient lives in his second house. Patient's other son is flying in from [place] tomorrow morning. I spoke at length to Scott he understands patient's situation. He had his brother work something out. He also get back to reviewed CODE STATUS. Active Medications Apixaban (Apixaban 5 Mg Tab) 5 mg PO BID [facility]; Protocol Aspirin (Aspirin 81 Mg) 81 mg PO DAILY [facility] Last Admin: 01/26/25 08:47 Dose: 81 mg Atorvastatin Calcium (Atorvastatin 40 Mg Tab) 40 mg PO HS [facility] Last Admin: 01/25/25 20:41 Dose: 40 mg Bupropion HCl (Bupropion Xl 300 Mg Tab.Er.24h) 300 mg PO DAILY [facility] Last Admin: 01/26/25 08:47 Dose: 300 mg Clopidogrel Bisulfate (Clopidogrel 75 Mg Tab) 75 mg PO DAILY [facility] Donepezil HCl (Donepezil 5 Mg Tab) 5 mg PO [facility] Last Admin: 01/25/25 20:41 Dose: 5 mg Finasteride (Finasteride 5 Mg Tab) 5 mg PO DAILY [facility] Last Admin: 01/26/25 08:47 Dose: 5 mg Metoprolol Tartrate (Metoprolol Tartrate 25 Mg Tab) 25 mg PO BID [facility] Last Admin: 01/26/25 08:47 Dose: 25 mg Nicotine (Nicotine 14mg/24hr Patch) 1 patch TRANSDERM DAILY [facility] Last Admin: 01/26/25 08:47 Dose: 1 patch Olanzapine (Olanzapine 10 Mg Vial) 5 mg IM BID PRN PRN Reason: Agitation Last Admin: 01/24/25 23:07 Dose: 5 mg Olanzapine (Olanzapine 5 Mg Tab) 5 mg PO BID PRN PRN Reason: Agitation or Acute Psychosis Quetiapine Fumarate (Quetiapine 50 Mg Tab) 50 mg PO [facility] Last Admin: 01/25/25 20:41 Dose: 50 mg Tamsulosin HCl (Tamsulosin 0.4 Mg Cap.Er.24h) 0.4 mg PO DAILY [facility] Last Admin: 01/26/25 08:47 Dose: 0.4 mg Social history: Smokes half a pack a day. Started smoking at age of 16. Denies alcohol. Lives alone. On examination: VITAL SIGNS: 98.3, 53, 16, 113 x 64, 97% room air GENERAL APPEARANCE: BMI 25.8, open chair HEENT: Normal external appearance of nose and ear. Oral cavity normal EYES: Pupils equal. Conjunctiva normal. NECK: JVD not raised. Mass not palpable. RESPIRATORY: Respiratory effort normal. Lungs clear to auscultation. CARDIOVASCULAR: Heart sounds irregular No edema. ABDOMEN: Soft. Liver and spleen not palpable. No tenderness. No mass palpable. PSYCHIATRY: Able to hold a simple conversation. Forgetful Musculoskeletal: He has a scab from where he was bleeding on the right lection. INVESTIGATIONS, reviewed in the clinical context: 2D echo: EF 60-65%. No wall motion abnormality. Moderately increased septal wall thickness. January 25: White count 9.6 hemoglobin 8.4 B12 427 folate 14 January 24, 2025: White count 15.0 hemoglobin 8.5 platelets 212. January 23: Potassium 5.2 BUN 29 creatinine 2.16 troponin I 0.482 UA: Negative for nitrite negative for leukoesterase EKG tracing personally reviewed by me-right bundle michael block. Sinus rhythm. Chest x-ray film personally reviewed by me-unremarkable Assessment and plan: - Patient found with acute confusion. Likely acute delirium.: Better No obvious signs of infection. Psychiatry following - No GI bleed Bleeding was from the scab on the leg with a setting of Eliquis -Paroxysmal atrial flutter, currently: sinus rhythm L history of cardioversion Lopressor. Because of significant confusion, cognitive impairment will not resume Eliquis -Hyperlipidemia Lipitor 40 mg daily at bedtime -Essential hypertension Lopressor 25 mg twice a day. -BPH Proscar 5 mg a day. Flomax 0.4 mg daily at bedtime -Depression otherwise specified Wellbutrin XL 300 mg a day -CAD with a prior history of bypass in 2011 Lipitor, Lopressor. Plavix -Chronic nicotine dependence, cigarette smoker Nicotine patch - Positive troponin. Denies chest pain. Has underlying coronary artery disease. Repeat troponin. Cardiology following -Moderate-severe cognitive impairment. B12 folate normal. - POA, son-Scott 2 full memory assessment plan per speech. Spoke to melquiades Chavez. His brother is flying from [place]. Plan for discharge tomorrow. Eliquis being resumed. Past Medical History Past Medical History: Coronary Artery Disease (CAD), COPD, Hyperlipidemia, Hypertension, Myocardial Infarction ([place]), Prostate Disorder Additional Past Medical History / Comment(s): STATES "MILD COPD" (NO MEDS), ENLARGED PROSTATE., AAA Last Myocardial Infarction Date:: 2011 History of Any Multi-Drug Resistant Organisms: None Reported Past Surgical History: Coronary Bypass/CABG, Hernia Repair Additional Past Surgical History / Comment(s): TRIPLE CABG (2012), HERNIA (CHILD) Past Anesthesia/Blood Transfusion Reactions: No Reported Reaction Past Psychological History: Depression Smoking Status: Current some day smoker Past Alcohol Use History: None Reported Past Drug Use History: None Reported
[2025-01-26] MEDS: APIXABAN 5 MG TAB PO SCH (19:48)
[2025-01-27 07:47] VITALS: BP 119/69; PULSE 55; RESP 15; TEMP 98
[2025-01-27] MEDS: CLOPIDOGREL 75 MG TAB PO SCH (08:11)
[2025-01-27 09:33] VITALS: BMI 33.0
--- NOTE | 2025-01-27 20:21 | P.DS ---
Providers Date of admission: 01/23/25 15:54 Expected date of discharge: 01/27/25 Attending physician: Martinez Dinh Consults: 01/23/25 16:16 Consult Physician Urgent Consulting Provider: Psychiatry - [facility] Psychiatry Consult Reason/Comments: mental health eval, hallucinations Do you want consulting provider notified?: Yes 01/24/25 14:27 Consult Physician Routine Consulting Provider: Delbert Alvarez Consult Reason/Comments: Positive troponin Do you want consulting provider notified?: Yes Primary care physician: Td [place] Hospital Course: Chief Complaint: bleeding patient is a 69-year-old male with a known history of coronary artery disease status post CABG, hypertension, hyperlipidemia, history of NM and COPD,smoker.. Patient was brought in through the ER. When the ER son had come home and found him confused naked with blood on the floor. In a bucket of in the garage. There was stool out of his legs. Patient was confused. Per the EMS his blood pressure was reportedly normal and he given some fluid bolus. As per the patient he said he started bleeding from the right lection after he bumped it. Significant amount of blood was spurting out. He then decided to go to the garage and get a bucket. In the process there was blood all over. He was not bleeding from his rectum. He also had to have a bowel movement and was unable to control and had to get his pants off. Patient has some cognitive impairment not able to give a very detailed history but is still able to give the fax in a pretty reasonably good manner weight. Denies any fever or chills. Denies abdominal pain. January 25: Earlier this morning patient became very somewhat agitated. Hallucinating seeing fire in the room. Was climbing out of the bed. Was given Zyprexa. Psychiatry was consulted. Has a sitter. High risk of fall. Hence Eliquis not be resumed. Psychiatry input appreciated. January 26: Patient doing much better today. Sitting up in the chair. Nurses spoken to the son and so to the social work assistant. Son did confirm that it was the evening patient gets sundowning. Patient is able to hold a simple conversation by me with me but forgetful. He does understand that he gets confused in the evening. Will consult speech to get a formal memory evaluation. Resume Eliquis. Spoke to patient's son Scott on the phone. Patient lives in his second house. Patient's other son is flying in from [place] tomorrow morning. I spoke at length to Scott he understands patient's situation. He had his brother work something out. He also get back to reviewed CODE STATUS. January 27: Patient this morning. Comfortable. Patient's son Donald and his had flown in from [place]. Patient's son who lives locally Scott currently on Active. Spoke at length to Donald. And his . He and his brother will be sorting things out. He will stay with the patient through the weekend. Social work is involved. Seen by speech therapy. They will follow-up. [facility] will also follow-up Discussion and discharge planning more than 35 minutes Social history: Smokes half a pack a day. Started smoking at age of 16. Denies alcohol. Lives alone. On examination: VITAL SIGNS: 98, 55, 15, 119 x 69, 94% room air GENERAL APPEARANCE: Sitting up in bed, comfortable ir HEENT: Normal external appearance of nose and ear. Oral cavity normal EYES: Pupils equal. Conjunctiva normal. NECK: JVD not raised. Mass not palpable. RESPIRATORY: Respiratory effort normal. Lungs clear to auscultation. CARDIOVASCULAR: Heart sounds irregular No edema. ABDOMEN: Soft. Liver and spleen not palpable. No tenderness. No mass palpable. PSYCHIATRY: Able to hold a simple conversation. Forgetful Musculoskeletal: He has a scab from where he was bleeding on the right lection. INVESTIGATIONS, reviewed in the clinical context: 2D echo: EF 60-65%. No wall motion abnormality. Moderately increased septal wall thickness. January 25: White count 9.6 hemoglobin 8.4 B12 427 folate 14 January 24, 2025: White count 15.0 hemoglobin 8.5 platelets 212. January 23: Potassium 5.2 BUN 29 creatinine 2.16 troponin I 0.482 UA: Negative for nitrite negative for leukoesterase EKG tracing personally reviewed by me-right bundle michael block. Sinus rhythm. Chest x-ray film personally reviewed by me-unremarkable Assessment and plan: - Patient found with acute confusion. Likely acute delirium.: Better No obvious signs of infection. Psychiatry following - No GI bleed Bleeding was from the scab on the leg with a setting of Eliquis -Paroxysmal atrial flutter, currently: sinus rhythm L history of cardioversion Lopressor. Eliquis resumed. Family will be monitoring -Hyperlipidemia Lipitor 40 mg daily at bedtime -Essential hypertension Lopressor 25 mg twice a day. -BPH Proscar 5 mg a day. Flomax 0.4 mg daily at bedtime -Depression otherwise specified Wellbutrin XL 300 mg a day -CAD with a prior history of bypass in 2011 Lipitor, Lopressor. Plavix -Chronic nicotine dependence, cigarette smoker Nicotine patch - Positive troponin. Denies chest pain. Has underlying coronary artery disease. Repeat troponin. Cardiology following -Moderate-severe cognitive impairment. B12 folate normal. - POA, son-Scott Disposition: Home Past Medical History Past Medical History: Coronary Artery Disease (CAD), COPD, Hyperlipidemia, Hypertension, Myocardial Infarction (NM), Prostate Disorder Additional Past Medical History / Comment(s): STATES "MILD COPD" (NO MEDS), ENLARGED PROSTATE., AAA Last Myocardial Infarction Date:: 2011 History of Any Multi-Drug Resistant Organisms: None Reported Past Surgical History: Coronary Bypass/CABG, Hernia Repair Additional Past Surgical History / Comment(s): TRIPLE CABG (2012), HERNIA (CHILD) Past Anesthesia/Blood Transfusion Reactions: No Reported Reaction Past Psychological History: Depression Smoking Status: Current some day smoker Past Alcohol Use History: None Reported Past Drug Use History: None Reported Plan - Discharge Summary Discharge Rx Participant: No New Discharge Prescriptions: New Donepezil [Aricept] 5 mg PO HS #30 tab Nicotine 14Mg/24Hr Patch [Habitrol] 1 patch TRANSDERM DAILY #30 patch OLANZapine [ZyPREXA] 5 mg PO BID PRN #30 tab PRN Reason: Agitation Or Acute Psychosis Continue buPROPion HCL [Wellbutrin XL] 300 mg PO DAILY Tamsulosin [Flomax] 0.4 mg PO DAILY Finasteride [Proscar] 5 mg PO DAILY Atorvastatin [Lipitor] 40 mg PO HS Apixaban [Eliquis] 5 mg PO BID 30 Days #60 tab Clopidogrel [Plavix] 75 mg PO DAILY Metoprolol Tartrate [Lopressor] 25 mg PO BID QUEtiapine [SEROquel] 50 mg PO HS Discontinued Aspirin EC [Ecotrin Low Dose] 81 mg PO DAILY Discharge Medication List buPROPion HCL [Wellbutrin XL] 300 mg PO DAILY 11/21/14 [History] Finasteride [Proscar] 5 mg PO DAILY 08/20/19 [History] Tamsulosin [Flomax] 0.4 mg PO DAILY 08/20/19 [History] Atorvastatin [Lipitor] 40 mg PO HS 09/25/21 [History] Apixaban [Eliquis] 5 mg PO BID 30 Days #60 tab 09/26/21 [Rx] Clopidogrel [Plavix] 75 mg PO DAILY 01/23/25 [History] Metoprolol Tartrate [Lopressor] 25 mg PO BID 01/23/25 [History] QUEtiapine [SEROquel] 50 mg PO HS 01/23/25 [History] Donepezil [Aricept] 5 mg PO HS #30 tab 01/27/25 [Rx] Nicotine 14Mg/24Hr Patch [Habitrol] 1 patch TRANSDERM DAILY #30 patch 01/27/25 [Rx] OLANZapine [ZyPREXA] 5 mg PO BID PRN #30 tab 01/27/25 [Rx] Follow up Appointment(s)/Referral(s): Eugene Verma MD [STAFF PHYSICIAN] - 02/14/25 9:15 am Td Ghosh MD [Primary Care Provider] - 1-2 days (Office is not answering at time of discharge. Please call for follow-up appointment.) [facility] Visiting Nurse, [NON-STAFF] - 1 Week Discharge/Stand Alone Forms: Adult Foster Intermediate List, Assisted Living Facilities, Help In The Home Discharge Disposition: HOME WITH HOME HEALTH SERVICES
== END 2025-01-27 11:51 | disposition home health service (06) | DRG 309 ==
LOC: EC 09:47 → 3SCARD 15:54 → 4SSUR 01-26 21:48
PROVIDERS: ADMIT Hospitalist; ATTEND Hospitalist
DX: I48.92 Unspecified atrial flutter (principal); D62 Acute posthemorrhagic anemia; E87.20 Acidosis, unspecified; F05 Delirium due to known physiological condition; F03.92 Unspecified dementia, unspecified severity, with psychotic disturbance; J44.9 Chronic obstructive pulmonary disease, unspecified; I10 Essential (primary) hypertension; F32.A Depression, unspecified; F03.93 Unspecified dementia, unspecified severity, with mood disturbance; N17.9 Acute kidney failure, unspecified; I48.91 Unspecified atrial fibrillation; N20.0 Calculus of kidney; K43.9 Ventral hernia without obstruction or gangrene; M16.0 Bilateral primary osteoarthritis of hip; E78.5 Hyperlipidemia, unspecified; N40.0 Benign prostatic hyperplasia without lower urinary tract symptoms; R79.89 Other specified abnormal findings of blood chemistry; F17.210 Nicotine dependence, cigarettes, uncomplicated; S80.922A Unspecified superficial injury of left lower leg, initial encounter; Z86.79 Personal history of other diseases of the circulatory system; I25.10 Atherosclerotic heart disease of native coronary artery without angina pectoris; I25.2 Old myocardial infarction; I45.10 Unspecified right bundle-branch block; Z79.01 Long term (current) use of anticoagulants; Z79.02 Long term (current) use of antithrombotics/antiplatelets; Z79.84 Long term (current) use of oral hypoglycemic drugs; Z79.82 Long term (current) use of aspirin; Z79.899 Other long term (current) drug therapy; Z91.81 History of falling; Z95.1 Presence of aortocoronary bypass graft; Z87.19 Personal history of other diseases of the digestive system
CPT/HCPCS: 36415; 71046; 74174; 80053; 81001; 82565; 82607; 82746; 83605; 83735; 84484; 85025; 85610; 85730; 86850; 86900; 86901; 87040; 87086; 93005; 93306; 96361; 96365; 96366; 96375; 99291